=== PATIENT | male | born 1965 | race Caucasian/White ===

== ENCOUNTER 2024-10-19 23:04 | Inpatient (IN) | payer OTHER, SELFPAY ==
[2024-10-19 18:36] VITALS: BP 127/90
[2024-10-19 18:38] VITALS: BP 127/90
--- NOTE | 2024-10-19 18:42 | ED.GENMED ---
History of Present Illness
General
Chief Complaint: Heart Rate Problem
Source: patient
Exam Limitations: none
Time Seen by Provider: 10/19/24 18:37
Nursing documentation reviewed up to this point in time: agreed with
History of Present Illness
History of Present Illness:
Patient presents to ED from [facility] secondary to persistent tachycardia, since he was admitted 1 week ago. Patient otherwise has no complaints. Denies fever. Denies coughing. Denies chest pain or shortness of breath.
Denies palpitations. Denies nausea or vomiting. Denies dizziness. Denies headache. Denies recent change in medications or diet. Denies recent illness. Patient is an ex-smoker. Patient does not drink alcohol. Denies previous history of
similar symptoms.
Review of Systems
Review of Systems
Allergies reviewed?: Yes
All Other Systems: ROS reviewed and negative except as documented in HPI and ROS
Constitutional: Reports no symptoms; Denies fever
Respiratory: Reports no symptoms; Denies trouble breathing
Cardiac: Reports no symptoms; Denies chest pain, diaphoresis, palpitations or syncope
ABD/GI: Reports no symptoms
Musculoskeletal: Reports no symptoms
Skin: Reports no symptoms
Neurological: Reports no symptoms; Denies dizzy, headache or weakness
Phy Exam
Physical Exam
Physical Exam:
Physical Exam
General: no apparent distress, not acutely ill. afebrile
Head: nc/at. eomi
Neck: supple. normal range of motion. no jvd
Heart: tachycardic, no murmur.
Lungs: no acute respiratory distress. clear bilaterally
Abdomen: normal bowel sounds. not tender.
Neuro: alert and oriented x 3. no focal neurological deficits
Skin: no rash
Psychiatric: well kept. interactive and cooperative
Extremities: no edema. no calf tenderness.
Scores
[id number] Score for Afib Stroke Risk
Age in Years (65=0, 65-74=1, >/=75=2): <65
Sex (Female=+1): Male
Congestive Heart Failure History (Yes=+1): No
Hypertension History (Yes=+1): No
Stroke/TIA/Thromboembolism History (Yes=+2): No
Vascular Disease History (Yes=+1): No
Diabetes Mellitus (Yes=+1): No
Score: 0
Anticoagulation Recommendations: Anticoagulation not indicated (as validated in nonvalvular afib). Consider anticoagulation irrespective of score in patients with HCM
Course
Orders/Labs/Results
Orders:
Orders
10/19/24 18:42
Electrocardiogram (*1) Urgent
Reason for Study: Bradycardia / Tachycardia
EKG- Treatment ONCE
10/19/24 18:45
Metoprolol [Lopressor] 5 mg IV NOW STA
10/19/24 18:50
Complete Blood Count/With Diff Urgent
Comprehensive Metabolic Panel Urgent
D-Dimer Urgent
Magnesium Urgent
TSH Urgent
Troponin I Urgent
10/19/24 19:23
Diltiazem HCl [Cardizem] 20 mg IV NOW STA
10/19/24 19:30
Diltiazem 125 mg/125 ml Nss [Cardizem] 125 mg in 125 ml IV PER PROTOCOL
Initial dose in mg/hr, then titrate:: 5
Titrate to keep:: Heart rate 80-100 bpm
Titrate by mg/hr:: 5 mg/hr
Frequency of titrations (minutes):: 15
Maximum dose in mg/hr:: 15
10/19/24 20:52
Diltiazem HCl [Cardizem] 25 mg IV NOW STA
10/19/24 21:30
Apixaban [Eliquis] 5 mg PO BID
10/19/24 22:29
Metoprolol [Lopressor] 12.5 mg PO NOW STA
10/19/24 22:30
Apixaban [Eliquis] 5 mg PO BID
10/19/24 22:54
Admit/Transfer Patient As Directed
Co-Sign Provider:
Level of Care: Inpatient admission
Assign to:: IVU
Physician / Group: Mesfin
Diagnosis: A-Flutter
Reason for Hospitalization: A-Flutter
Expected length of stay greater than two midnights?: Yes
ELOS- Estimated Length of Stay in days: 2
I certify the patient meets the requirements for IP care: Yes
PRN Pain Medication Management As Directed
May give lesser potent ordered pain med per pt: Yes
preference::
Protocol:: Medication orders for pain may be administered in a
manner that supports deferring to patient preference
when the pt is:
- Requesting an ordered lesser potent pain medication.
Least to most potent pain medications are defined
as: acetaminophen < NSAID < tramadol < opioids
(morphine, oxycodone, hydromorphone).
- Requesting a lesser dose of the same medication IF
ORDERED.
- Requesting a less intrusive route of administration
if both routes are prescribed by the provider (PO <
IV).
10/19/24 22:55
Code Status As Directed
Resuscitation Status: Full Code
10/20/24 01:38
Acetaminophen [Tylenol] 650 mg PO Q4HPRN PRN
Lactated Ringers [Lr] 1,000 ml IV 100 mls/hr
Metoprolol [Lopressor] 12.5 mg PO Q6
10/20/24 01:38
CARDIOLOGY CONSULT Routine
Consulting Provider: Everton Mcdermott
Was physician already notified: Yes
Reason for consult: A-Flutter
Activity As Directed
Activity Level: Ambulate
EKG with chest pain [ECG as needed] As Directed
ECG as needed for:: Chest Pain
I/O [Intake/ Output] As Directed
Frequency: Per unit guidelines
Orthostatic Vital Signs As Directed
Orthostatic VS Frequency: BID
Vital Signs As Directed
Frequency: Per unit guidelines
Weight As Directed
Frequency: Daily
Oxygen Therapy [O2 Therapy] [RESP] Routine
Titrate/Wean O2 to maintain O2 sat greater than (%): 94
10/20/24 03:33
Basic Metabolic Panel IN AM
Cardiovascular Evaluation IN AM
Complete Blood Count/No Diff IN AM
TSH Reflex To Free T4 Routine
10/20/24 06:00
EKG [Electrocardiogram (*1)] IN AM
Reason for Study: Chest Pain
NPO
Allow oral meds: Yes
Allow clear liquids: Sips of Clears
10/20/24 08:00
Aspirin Chewable [Low Strength Aspirin] 81 mg PO DAILY
Tamsulosin [Flomax] 0.8 mg PO DAILY
10/20/24 22:00
Amitriptyline [Elavil] 100 mg PO HS
Abnormal Lab Results
10/19/24
18:50
RBC 4.26 L 10^6/uL
(4.70-6.10)
Hct 38.0 L %
(39.0-52.0)
MCH 31.5 H pg
(27.0-31.0)
MPV 10.5 H fL
(7.4-10.4)
Chloride 108 H mmol/L
(98-107)
Glucose 111 H mg/dl
(70-99)
10/19/24 18:50
10/19/24 18:50
Vital Signs
Initial and Last Documented VS:
Initial Vital Signs
Pulse Resp BP
143 22 127/90
10/19/24 18:36 10/19/24 18:36 10/19/24 18:36
Last Documented Vital Signs
Temp Pulse Resp BP Pulse Ox
97.7 F 118 18 96/67 93
10/21/24 08:44 10/21/24 09:30 10/21/24 08:44 10/21/24 09:33 10/21/24 08:44
MDM/Problems Addressed
MDM/Problems Addressed:
History and exam, along with EKG consistent with new onset rapid atrial fibrillation. Patient requiring multiple boluses of Cardizem, as well as max infusion rate of Cardizem, with mild improvement in heart rate.
Discussed with on-call cardiology, Dr. MAXIMILIANO Mcdermott, who recommends starting patient on Eliquis, along with addition of metoprolol to tartrate 12.5 mg every 6 hours.
Critical care statement: A total of 40 minutes of critical care time was provided for this patient. This includes management of unstable vital signs, evaluation of the patient at bedside, reviewing the patient's pertinent medical records, discussion
with consultants, review of old EKGs and review of pertinent medical records. This time with separate from time utilized to perform the aforementioned documented procedures
*EKG
Interpreted by ED Provider?: Yes
EKG Intrepretation Date: 10/19/24
Heart Rate: 142
Rate: tachycardiac
Billings: normal axis
Interval: normal interval
QRS Pattern: normal QRS
*Critical Care Note
Total Time (30-74mins, 75-104mins- exclusive of procedures): Not Applicable
ED Attending Note
-
Portions of this chart may have been created with voice recognition software.� Occasional wrong word or��sound alike� substitutions may have occurred due to the inherent limitations of voice recognition software.
Discharge Plan
Departure
Patient Disposition: Admit
Date of Disposition: 10/19/24
Time of Disposition: 21:20
Admit to: Telemetry
Presentation/result/management discussed w/ accepting MD/DO: Hospitalist
Discharge Problem:
Atrial fibrillation, rapid
Interventions
Interventions:
*Risk Screen - Suicide Last Done: 10/20/24 01:23
*General Assessment Last Done: 10/19/24 18:38
*Neglect/Abuse Screening Last Done: 10/19/24 18:38
*ED- Fall Risk Assessment Last Done: 10/19/24 23:07
*ED COVID-19 Vaccine History Last Done: 10/20/24 01:23
*Nursing Disposition Last Done: 10/20/24 01:15
ED- Cardiac Assessment Last Done: 10/19/24 19:35
ED- Pulmonary Assessment Last Done: 10/19/24 19:35
Discharge Date and Time
Discharge Date/Time: 10/20/24 01:15
[2024-10-19] MEDS: LOPRESSOR 5 MG IV (18:59)
[2024-10-19 19:00] VITALS: BP 136/98
[2024-10-19 19:16] LABS: % Basophils 0.3 % (0-2); % Eosinophils 1.3 % (0-6); % Immature Granulocytes 0.1 % (0-0.5); % Lymphocytes 40.5 % (20.5-51.1); % Monocytes 7.9 % (1.7-9.3); % Neutrophils 49.9 % (42.2-75.2); Absolute Eosinophils 0.1 10^3/uL (0-0.7); Absolute Monocytes 0.6 10^3/uL (0.1-0.6); Absolute Neutrophils 3.7 10^3/uL (1.4-6.5); Hemoglobin 13.4 g/dL (13.0-18.0); Mean Corp Hgb Conc. 35.3 g/dL (33.0-37.0); Mean Corpuscular Hgb 31.5 pg (27.0-31.0); Mean Corpuscular Volume 89.2 fL (80.0-94.0); Mean Platelet Volume 10.5 fL (7.4-10.4); Nucleated Red Blood Cells % 0 % (-); Platelet Count 193 10^3/uL (130-400); Red Blood Cell Count 4.26 10^6/uL (4.70-6.10); Red Cell Dist. Width 13.1 % (11.5-14.5); White Blood Cell Count 7.5 10^3/uL (4.8-10.8)
[2024-10-19 19:29] LABS: ALT (SGPT) 31 U/L (0-50); AST (SGOT) 27 U/L (17-59); Albumin 4.5 g/dl (3.5-5.0); Alkaline Phosphatase 68 U/L (38-126); Blood Urea Nitrogen 17 mg/dl (9-20); Calcium 9.5 mg/dl (8.4-10.2); Carbon Dioxide 23 mmol/L (22-30); Chloride 108 mmol/L (98-107); Glucose 111 mg/dl (70-99); Magnesium 2.1 mg/dl (1.6-2.3); Potassium 4.2 mmol/L (3.5-5.1); Sodium 142 mmol/L (135-145); Total Bilirubin 0.4 mg/dl (0.2-1.3); Total Protein 7.1 g/dl (6.3-8.2); eGFR > 60.00
[2024-10-19 19:36] LABS: Troponin I < 0.012 ng/ml
[2024-10-19] MEDS: CARDIZEM 125 IV (19:39)
[2024-10-19] MEDS: CARDIZEM 20 MG IV (19:39)
[2024-10-19 19:59] LABS: TSH 1.83 uIU/ml (0.47-4.68)
[2024-10-19 20:09] LABS: D-Dimer 0.46 ug/mlFEU (0.00-0.50)
[2024-10-19 21:00] VITALS: BP 118/77
[2024-10-19] MEDS: CARDIZEM 25 MG IV (21:03)
[2024-10-19 22:13] VITALS: BMI 27.6
--- NOTE | 2024-10-19 22:58 | HPS.HSE ---
Family Physician
-
Family Physician: [facility]
Chief Complaint
-
Tachycardia
History of Present Illness
Patient is a 59y M with PMH significant for RA and neuropathy who presents to ED for evaluation of tachycardia. Patient states that he was evaluated at [facility] this afternoon and noted to have tachycardia. He denies any specific symptoms and
stated that he did not know his heartbeat was fast. He specifically denies chest pain, palpitations, lightheadedness, N/V, etc. He was sent to the ED for evaluation. He was noted to be in A-Flutter with 2:1 block and persistent tachycardia at
140-150 bpm. Patient was placed on diltiazem gtt with no improvement in his heart rate.
He denies any other current complaints.
He denies any prior history of heart disease, GA, CVA, etc.
He states that he is on Plavix for 'sticky platelets' but has no other details.
Medical History
Past Medical History
Past Medical History: Reports Other
Additional Past Medical History:
Rheumatoid Arthritis
Peripheral Neuropathy
GERD
'Sticky Platelets'
Past Surgical History: Reports Other
Additional Past Surgical History:
Appendectomy
Hemorrhoidectomy
Social History
Tobacco: Former Smoker (Quit 4 years ago. > 40 pack years total use.)
Alcohol: None
Drug: None
Living: Fdc
Family History
Family History: Other (Father: CAD Mother: Brain Cancer PGF: CVA)
Allergies / Home Medications
Allergies reflects when Allergies were last updated in [employer].
Home Medications with original date entered in [employer]
Allergy/Medication List:
Allergies
Allergy/AdvReac Type Severity Reaction Status Date / Time
Penicillins Allergy Severe Anaphylaxis Verified 10/19/24 18:37
Home Medications
acetaminophen 500 mg tablet 1,000 mg PO BID 10/19/24
amitriptyline 100 mg tablet 100 mg PO HS 10/19/24
metoprolol tartrate 25 mg tablet 25 mg PO BID 10/19/24
metoprolol tartrate 25 mg tablet 25 mg PO DAILYPRN PRN Abnormal HR 10/19/24
metoprolol tartrate 50 mg tablet 50 mg PO DAILYPRN PRN 25mg ineffective 10/19/24
omeprazole 20 mg capsule,delayed release 20 mg PO DAILY 10/19/24
tamsulosin 0.4 mg capsule 0.8 mg PO DAILY 10/19/24
Review of Systems
-
History Source: Patient
A 12 point ROS was completed and negative except as noted: Yes
Constitutional: Denies Fever or Chills
Respiratory: Denies Cough or Trouble Breathing
Cardiac: Denies Chest Pain or Palpitations
Abdomen/GI: Denies Abdominal Pain, Nausea, Vomiting or Diarrhea
: Denies Dysuria or Flank Pain
Musculoskeletal: Denies Joint Pain or Edema
Neurological: Denies Dizzy or Headache
Physical Exam
Vital Signs
Vital Signs
Temp Pulse Resp BP Pulse Ox
97.9 F 143 22 118/77 94
10/19/24 18:38 10/19/24 22:00 10/19/24 22:00 10/19/24 21:00 10/19/24 21:45
Physical Exam
General: Other (59y M in no acute distress.)
HEENT: PERRLA and Other (Dry MM.)
Respiratory: Clear; No Wheezes, Rales or Rhonchi
Cardiac: S1/S2, Regular Rhythm and Tachycardia; No Murmur
GI: Soft, Non Tender, Non Distended and Normal Bowel Sounds
Musculoskeletal: No Clubbing, No Cyanosis and No Edema
Neuro: AO x 3
Laboratory Results
-
10/19/24 18:50
10/19/24 18:50
Laboratory Results
Total Bilirubin 0.4 mg/dl (0.2-1.3) 10/19/24 18:50
AST 27 U/L (17-59) 10/19/24 18:50
ALT 31 U/L (0-50) 10/19/24 18:50
Alkaline Phosphatase 68 U/L (38-126) 10/19/24 18:50
Troponin I < 0.012 ng/ml 10/19/24 18:50
Impression/Plan
-
A/P: Patient is a 59y M with PMH significant for RA and neuropathy who presents to ED for evaluation of tachycardia.
Atrial Flutter
- Admit to IVU for further evaluation and treatment.
- Minimal change in rate thus far with diltiazem.
- Some response to vagal maneuvers in the ED - but transient.
- Continue diltiazem gtt. Add PO metoprolol in standing doses.
- Cardiology evaluation for additional recommendations.
- Continue Eliquis for stroke risk reduction.
- Check TFTs.
- Monitor for any new symptoms, etc.
RA
Peripheral Neuropathy
- History is unclear in this regard.
- Not on any DMARD type therapy for reported RA.
- On amitriptyline for chronic pain / neuropathy - continue.
GERD
- Stable. Continue PPI.
DVT Prophylaxis: Eliquis
Code Status: Full
[2024-10-19] MEDS: ELIQUIS 5 MG PO (22:59)
[2024-10-19 23:00] VITALS: BP 105/70
[2024-10-19] MEDS: LOPRESSOR 12.5 MG PO (23:23)
[2024-10-20] VITALS (11 sets, daily range): BP systolic 98–119; BP diastolic 72–88; BMI 27.6; BMI 27.4
--- NOTE | 2024-10-20 01:55 | PTCARENOTE ---
Received pt from ED @ 0105. Hr 135-140s, other VSS. AAOx3. Cardizem gtt running @ 15 mL/hr. Discussed plan of care for evening. Pt verbalized understanding. Call burnette within reach.
[2024-10-20] MEDS: LR 1000 IV (03:20)
[2024-10-20] MEDS: LOPRESSOR 12.5 MG PO ×2 (03:25→07:07)
[2024-10-20] MEDS: CARDIZEM 125 IV ×2 (03:29→11:46)
[2024-10-20 03:55] LABS: Hematocrit 38.7 % (39.0-52.0); Hemoglobin 13.9 g/dL (13.0-18.0); Mean Corp Hgb Conc. 35.9 g/dL (33.0-37.0); Mean Platelet Volume 11.1 fL (7.4-10.4); Platelet Count 195 10^3/uL (130-400); Red Blood Cell Count 4.35 10^6/uL (4.70-6.10); White Blood Cell Count 7.2 10^3/uL (4.8-10.8)
[2024-10-20 04:01] LABS: Blood Urea Nitrogen 16 mg/dl (9-20); Calcium 9.5 mg/dl (8.4-10.2); Carbon Dioxide 24 mmol/L (22-30); Chloride 108 mmol/L (98-107); Estimated Creatinine Clearance 80 ml/min; Glucose 108 mg/dl (70-99); HDL Cholesterol 38 mg/dl; LDL Cholesterol, Calculated 97 mg/dl; Potassium 4.1 mmol/L (3.5-5.1); Sodium 143 mmol/L (135-145); Total Cholesterol 162 mg/dl (50-199); Triglyceride 139 mg/dl (10-149); Very Low Density Lipoprotein 27 mg/dl (0-30); eGFR > 60.00
[2024-10-20 04:31] LABS: TSH Reflex To Free T4 3.28 uIU/ml (0.47-4.68)
[2024-10-20] MEDS: PROTONIX 40 MG PO (07:07)
[2024-10-20] MEDS: FLOMAX 0.8 MG PO (07:07)
[2024-10-20] MEDS: LOW STRENGTH ASPIRIN 81 MG PO (07:07)
--- NOTE | 2024-10-20 07:27 | CON.CAR ---
Addendum entered and electronically signed by Everton Mcdermott MD 10/20/24 09:23:
Diagnosis of hypercoagulable state is questionable, patient states he was placed on Plavix related to an abnormality of his platelets, other details uncertain, no history of vascular events per report of patient
Original Note:
Consultation
Consultation Request
Date/Time Consultation Requested: 10/19/2024 at 2200
Date/Time Consultation Performed: 10/20/2024 at 730
Requesting Provider: Dr. Griffith
Performing Provider: Everton Mcdermott MD
Reason for Consultation: Atrial flutter with 2-1 conduction
Medical History
-
Chief Complaint: Tachycardia
History of Present Illness:
59-year-old man with no cardiac history. He has a history of peripheral neuropathy and rheumatoid arthritis but not on DMARDs. He has been told he also has peripheral neuropathy and takes amitriptyline. He is vague about the possibility of a
hypercoagulable state. 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 He lives in [place] but 10 days ago was extradited to [place] and has been in [facility] correctional
facility. Upon intake he had a heart rate of 140 and a beta-pepito was prescribed. His heart rate has remained elevated. He is surprisingly asymptomatic and has no awareness of tachycardia. There is no prior history of arrhythmia. He was
brought to the emergency department where he was found to have atrial flutter with 2 predominant 2-1 conduction. His [id number] score is 0. He has now been admitted. Guards are at the bedside. He offers no complaints is pleasant and
cooperative.
Past Medical History
Past Medical History: Arrhythmias (No prior history of arrhythmia), COPD and Other (Rheumatoid arthritis, peripheral neuropathy)
Past Surgical History: Appendectomy and Other (Hemorrhoidectomy)
Social History
Tobacco: Former Smoker (Quit age 18)
Alcohol: None
Drug: None
Personal:
Living: Alone
Family History
Family History: Early CAD
Allergies / Home Medications
Allergy/AdvReac Type Severity Reaction Status Date / Time
Penicillins Allergy Severe Anaphylaxis Verified 10/19/24 18:37
�Medication �Instructions �Recorded �Confirmed �Type
acetaminophen 500 mg tablet 1,000 mg PO BID 10/19/24 10/19/24 History
amitriptyline 100 mg tablet 100 mg PO HS 10/19/24 10/19/24 History
metoprolol tartrate 25 mg tablet 25 mg PO BID 10/19/24 10/19/24 History
metoprolol tartrate 25 mg tablet 25 mg PO DAILYPRN PRN Abnormal HR 10/19/24 10/19/24 History
metoprolol tartrate 50 mg tablet 50 mg PO DAILYPRN PRN 25mg 10/19/24 10/19/24 History
ineffective
omeprazole 20 mg capsule,delayed 20 mg PO DAILY 10/19/24 10/19/24 History
release
tamsulosin 0.4 mg capsule 0.8 mg PO DAILY 10/19/24 10/19/24 History
Review of Systems
-
All other systems: Negative unless noted
Physical Exam
Vital Signs
Temp Pulse Resp BP Pulse Ox
36.9 C 137 18 103/77 96
10/20/24 06:53 10/20/24 05:33 10/20/24 06:53 10/20/24 05:33 10/20/24 06:53
Lab Results
10/20/24 03:33
10/20/24 03:33
Troponin I < 0.012 ng/ml 10/19/24 18:50
Physical Exam
General: No Apparent Distress (Tachycardic, heart rate 140)
HEENT: Other (Very few remaining teeth, poor dentition)
Respiratory: Clear
Cardiac: Other (Tachycardic, intermittently irregular, no murmur)
Musculoskeletal: No Edema and Other (Standard changes of rheumatoid arthritis)
Neuro: AO x 3
Psych: Calm
Impression / Plan
-
Impression:
Persistent atrial flutter
Rheumatoid arthritis
History of COPD and/or asthma
Suboptimal social situation, extradited from [place] to [place]
Peripheral neuropathy
Hypercoagulable state
Plan:
He presents with what is likely persistent atrial flutter which goes back at least 10 days upon his arrival to [facility] based on his history. It is conceivable that he has been in atrial flutter for longer than that. His
[id number] score is 0.
Thus far his ventricular response has been very difficult to control, and so it is likely that he will require cardioversion prior to discharge. It seems unlikely at this point that he will spontaneously revert to sinus rhythm.
Despite a [id number] score of 0 he should be anticoagulated given that we will be cardioverting him. It would be reasonable to discontinue anticoagulation after sinus rhythm has been reestablished for several weeks.
We will continue metoprolol and IV diltiazem. I will increase metoprolol to 25 every 6 and except blood pressure as low as 95-100 systolic.
Continue Eliquis.
He will need a transesophageal echo and cardioversion on Tuesday.
Data Reviewed
-
EKG: Tracing Personally Visualized and interpreted (Atrial flutter with rapid and variable AV conduction)
Labs: Labs Reviewed by me (CBC is normal, BUN and creatinine are 16 and 1.0, total cholesterol is 162, LDL is 97, triglycerides are 139, troponin is undetectable)
[2024-10-20] MEDS: ELIQUIS 5 MG PO ×2 (08:33→19:50)
--- NOTE | 2024-10-20 08:58 | W.PN.HOSP.TC ---
Today's Communication/Plan
-
Continue with IV Cardizem and metoprolol. Continue with Eliquis.
DC aspirin.
Electrical cardioversion planned for Tuesday.
Assessment / Plan
Assessment / Plan
A/P: Patient is a 59y M with PMH significant for RA and neuropathy who presents to ED for evaluation of tachycardia.
Atrial Flutter
- Admitted to IVU for further evaluation and treatment.
- cw diltiazem IV gtt.
- cw PO metoprolol in standing doses.
- Cardiology evaluation for additional recommendations.
- [id number] score - 0 so no indication for Eliquis but cards plan to do ECV on Tuesday so would continue it. DC ASA.
- Check TFTs.
- Monitor for any new symptoms, etc.
RA
Peripheral Neuropathy
- History is unclear in this regard.
- Not on any DMARD type therapy for reported RA.
- On amitriptyline for chronic pain / neuropathy - continue.
GERD
- Stable. Continue PPI.
DVT Prophylaxis: Eliquis
Code Status: Full
Anticipated Discharge: > 48 hours
Subjective/Interval History
-
Date of Service: October 20, 2024
Patient without chest pain or shortness of breath.
Denies any dizziness.
No nausea vomiting. No fever chills. No cough.
Objective Data
-
Labs:
Laboratory Results
10/20/24
03:33
WBC 7.2
Hgb 13.9
Hct 38.7 L
Plt Count 195
Sodium 143
Potassium 4.1
Chloride 108 H
Carbon Dioxide 24
BUN 16
Creatinine 1.0
Glucose 108 H
Calcium 9.5
Vital Signs:
Vital Signs
Temp Pulse Resp BP Pulse Ox
98.5 F 137 18 103/77 96
10/20/24 06:53 10/20/24 05:33 10/20/24 06:53 10/20/24 05:33 10/20/24 06:53
I&O
10/19/24 10/20/24 10/21/24
06:59 06:59 06:59
Output Total 650 / 650
Balance -650 / -650
Physical Exam
-
General: Comfortable
HEENT: Moist Mucous Membranes
Respiratory: Clear to Auscultation
Cardiac: S1/S2, Irregular Rhythm and Tachycardic
GI: Soft
Musculoskeletal: No Edema
Neuro: AO x 3
Data Reviewed
-
Labs: Labs Reviewed by me
[2024-10-20] MEDS: LOPRESSOR 25 MG PO ×3 (11:46→22:51)
--- NOTE | 2024-10-20 21:16 | PTCARENOTE ---
Received pt @ change of shift. AAOx3. VSS. Cardizem gtt running @ 15 mL/hr through Rt AC. Denies palpitations, SOB, chest discomfort. Discussed plan of care for evening. Pt verbalized understanding. Call burnette within reach.
[2024-10-20] MEDS: ELAVIL 100 MG PO (22:51)
[2024-10-21] VITALS (10 sets, daily range): BP systolic 74–106; BP diastolic 56–88; BMI 27.1
[2024-10-21 01:48] LABS: NT-proBNP 685 pg/ml
[2024-10-21] MEDS: CARDIZEM 125 IV (03:53)
[2024-10-21] MEDS: LOPRESSOR 25 MG PO ×4 (05:31→23:28)
--- NOTE | 2024-10-21 05:39 | PTCARENOTE ---
Pt had a restful night. HR came down as low as 92 @ times. No c/o of chest discomfort, palpitations, or SOB.
[2024-10-21] MEDS: ELIQUIS 5 MG PO ×2 (08:56→21:05)
[2024-10-21] MEDS: FLOMAX 0.8 MG PO (09:00)
[2024-10-21] MEDS: PROTONIX 40 MG PO (09:00)
--- NOTE | 2024-10-21 10:53 | W.PN.CARDCBS ---
Today's Communication / Plan
-
YANG/cardioversion on 10/22
Cardizem discontinued due to hypotension
Continue Lopressor if blood pressure tolerates
May need amiodarone if rate control continues to be poor although appears to be asymptomatic
Hopefully ejection fraction has not decreased as may have been in atrial flutter for 1 to 2 weeks
Impression / Plan
-
Impression:
Persistent atrial flutter
Rheumatoid arthritis
History of COPD and/or asthma
Suboptimal social situation, extradited from [place] to [place]
Peripheral neuropathy
Hypercoagulable state
Plan:
Heart rate control remains suboptimal and he is hypotensive necessitating Cardizem to be discontinued
Will do YANG/cardioversion on 10/22. Hopefully ejection fraction has not decreased as may have been in atrial flutter for 1 to 2 weeks per
Despite a [id number] score of 0 he should be anticoagulated given that we will be cardioverting him. It would be reasonable to discontinue anticoagulation after sinus rhythm has been reestablished for several weeks.
Continue metoprolol for now and hopefully blood pressure will tolerate. If rate becomes too difficult may need to consider IV amiodarone or oral amiodarone
Continue Eliquis.
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
Subjective
Date of Service: October 21, 2024
No complaints
Objective
Labs:
10/20/24 03:33
10/20/24 03:33
Labs
Hgb 13.9 g/dL (13.0-18.0) 10/20/24 03:33
Hct 38.7 % (39.0-52.0) L 10/20/24 03:33
Plt Count 195 10^3/uL (130-400) 10/20/24 03:33
Sodium 143 mmol/L (135-145) 10/20/24 03:33
Potassium 4.1 mmol/L (3.5-5.1) 10/20/24 03:33
BUN 16 mg/dl (9-20) 10/20/24 03:33
Creatinine 1.0 mg/dL (0.7-1.3) 10/20/24 03:33
Glucose 108 mg/dl (70-99) H 10/20/24 03:33
Troponins
10/19/24
18:50
Troponin I < 0.012
Vital Signs and I&O:
Vital Signs
Temp Pulse Resp BP Pulse Ox
97.7 F 118 18 96/67 93
10/21/24 08:44 10/21/24 09:30 10/21/24 08:44 10/21/24 09:33 10/21/24 08:44
Vital Signs
Temp Pulse Resp BP Pulse Ox
97.7 F 118 18 96/67 93
10/21/24 08:44 10/21/24 09:30 10/21/24 08:44 10/21/24 09:33 10/21/24 08:44
Intake & Output
10/19/24 10/20/24 10/21/24 10/22/24
06:59 06:59 06:59 06:59
Intake Total 920 / 920
Output Total 650 / 650 2475 / 2475
Balance -650 / -650 -1555 / -1555
Physical Exam
Physical Exam
General: Well developed, well nourished in NAD.
Neck: Supple, no JVD, HJR, carotids +2 B/L, no bruits bilaterally.
Heart: Non displaced PMI, regular, tachycardic, no murmurs, No S3, S4, no rubs.
Lungs: Scattered rhonchi
Extremities: No clubbing, cyanosis or edema bilaterally.
Neuro: Grossly nonfocal, awake, alert and oriented x3.
--- NOTE | 2024-10-21 11:14 | W.PN.HOSP.TC ---
Today's Communication/Plan
-
CW BB
ECV in am
Assessment / Plan
Assessment / Plan
A/P: Patient is a 59y M with PMH significant for RA and neuropathy who presents to ED for evaluation of tachycardia.
New Atrial Flutter with RVR
- Admitted to IVU for further evaluation and treatment.
- hold diltiazem IV gtt due to low BP today
- cw PO metoprolol in standing doses.
- Cardiologyfollowing
- [id number] score - 0 so no indication for Eliquis but cards plan to do ECV on Tuesday so would continue it. DC ASA.
- TSH is ok
- Monitor for any new symptoms, etc.
- HD stable and no CHF clinically
RA
Peripheral Neuropathy
- History is unclear in this regard.
- Not on any DMARD type therapy for reported RA.
- On amitriptyline for chronic pain / neuropathy - continue.
GERD
- Stable. Continue PPI.
DVT Prophylaxis: Eliquis
Code Status: Full
Anticipated Discharge: 24 - 48 hours
Subjective/Interval History
-
Date of Service: October 21, 2024
Patient voices no specific complaints
Denies any chest pain, palpitation shortness of breath.
No nausea vomiting. Tolerating diet.
Objective Data
-
Vital Signs:
Vital Signs
Temp Pulse Resp BP Pulse Ox
97.7 F 118 18 96/67 93
10/21/24 08:44 10/21/24 09:30 10/21/24 08:44 10/21/24 09:33 10/21/24 08:44
I&O
10/20/24 10/21/24 10/22/24
06:59 06:59 06:59
Intake Total 920 / 920
Output Total 650 / 650 2475 / 2475
Balance -650 / -650 -1555 / -1555
Physical Exam
-
General: Comfortable
Respiratory: Clear to Auscultation and Non Labored Respirations; Negative Accessory Resp Muscle Use
Cardiac: S1/S2, Irregular Rhythm and Tachycardic
GI: Soft
Neuro: AO x 3
--- NOTE | 2024-10-21 17:40 | PTCARENOTE ---
Pt denies any discomfort, states he is unaware of his fast heart rate. Diltiazem infusion stopped per @09:15 due to hypotension. Pt has spent most of the day in atrial flutter at a rate @140 while he is awake, 120's when sleeping.
Elsie aware.. Pt understands plan for YANG/CV on 10/22.
--- NOTE | 2024-10-21 19:42 | PTCARENOTE ---
Left leg shackled to bed.
[2024-10-21] MEDS: ELAVIL 100 MG PO (21:05)
[2024-10-22] VITALS (9 sets, daily range): BP systolic 87–114; BP diastolic 61–88
[2024-10-22] MEDS: LOPRESSOR 25 MG PO (06:14)
--- NOTE | 2024-10-22 06:38 | PTCARENOTE ---
Pt A flutter 130-140 BPM on monitor. Pt denies palpitation or any discomfort. Left leg shackled to the bed, safety measures in place.
[2024-10-22] MEDS: PROTONIX 40 MG PO (08:33)
[2024-10-22] MEDS: FLOMAX 0.8 MG PO (08:33)
[2024-10-22] MEDS: ELIQUIS 5 MG PO ×2 (08:33→19:55)
--- NOTE | 2024-10-22 11:17 | W.PN.CARDCBS ---
Addendum entered and electronically signed by Servando Zimmerman MD 10/22/24 12:39:
I saw and examined the patient.
The SAFETY INTERN or PA's note was reviewed and I agree with the note.
Comment: General: Well developed, well nourished in NAD.
Neck: Supple, no JVD, HJR, carotids +2 B/L, no bruits bilaterally.
Heart: Non displaced PMI, irregular, tachycardic, no murmurs, No S3, S4, no rubs.
Lungs: Scattered rhonchi
Extremities: No clubbing, cyanosis or edema bilaterally.
Neuro: Grossly nonfocal, awake, alert and oriented x3.
Patient seen prior to YANG cardioversion which was successful. Ejection fraction was decreased to 35%. Will start Toprol and lisinopril. Hopefully stable for discharge on 10/23.
Addendum entered and electronically signed by Kisha Trinidad PA-C 10/22/24 12:06:
In to update patient, his EF is down at 35%. Reviewed plan of starting Toprol XL 25 mg BID plus lisinopril 2.5 mg daily. Will increase meds as BP tolerates. Will keep patient until tomorrow for medication titration.
Original Note:
Today's Communication / Plan
-
Possible d/c today pending YANG/CV
Impression / Plan
-
PCP: None locally
Card: None
Impression:
Admitted with newly diagnosed atrial flutter of unclear duration 10/19/24
Persistent typical atrial flutter
Rheumatoid arthritis
History of COPD and/or asthma
Suboptimal social situation, extradited from [place] to [place]
Peripheral neuropathy
Hypercoagulable state
YANG 10/22/24: Study pending
Plan:
-Patient admitted with newly diagnosed atrial flutter 10/19/24 and remains in rapid atrial flutter 10/22/24 on tele review by me. Plan is for YANG/CV 10/22/24.
-Reviewed YANG/CV procedure with patient. Reviewed that there is small possibility of NICK clot which would change our current plans.
-New to Eliquis 5 mg BID (age 59, Cre 1.0) this admission. [facility] Unclear what his insurance is outside of [facility] system
-Initially managed with Cardizem gtt, but became hypotensive and gtt stopped. Currently ordered Lopressor 25 mg q 6 hours and tolerating all doses thus far.
-Pending EF by YANG might change to Toprol XL.
-No SOB or orthopnea. pro-BNP was 685 on 10/20/24
-Possible d/c 10/22/24 pending YANG/CV
Progress Note - Lead Printer
Subjective
Date of Service: October 22, 2024
Denies chest pain or orthopnea
Objective
Labs:
10/20/24 03:33
10/20/24 03:33
Labs
Hgb 13.9 g/dL (13.0-18.0) 10/20/24 03:33
Hct 38.7 % (39.0-52.0) L 10/20/24 03:33
Plt Count 195 10^3/uL (130-400) 10/20/24 03:33
Sodium 143 mmol/L (135-145) 10/20/24 03:33
Potassium 4.1 mmol/L (3.5-5.1) 10/20/24 03:33
BUN 16 mg/dl (9-20) 10/20/24 03:33
Creatinine 1.0 mg/dL (0.7-1.3) 10/20/24 03:33
Glucose 108 mg/dl (70-99) H 10/20/24 03:33
Troponins
10/19/24
18:50
Troponin I < 0.012
Vital Signs and I&O:
Vital Signs
Temp Pulse Resp BP Pulse Ox
98.4 F 136 20 99/85 96
10/22/24 07:23 10/22/24 07:30 10/22/24 07:23 10/22/24 07:24 10/22/24 07:23
Vital Signs
Temp Pulse Resp BP Pulse Ox
98.4 F 136 20 99/85 96
10/22/24 07:23 10/22/24 07:30 10/22/24 07:23 10/22/24 07:24 10/22/24 07:23
Intake & Output
10/20/24 10/21/24 10/22/24 10/23/24
06:59 06:59 06:59 06:59
Intake Total 920 / 920 640 / 640
Output Total 650 / 650 2475 / 2475 2160 / 2160 200 / 200
Balance -650 / -650 -1555 / -1555 -1520 / -1520 -200 / -200
Physical Exam
Physical Exam
GEN: NAD. AAOx3
HEENT: MMM
LUNGS: RA. No audible wheeze.
CV: Typical atrial flutter on tele
EXT: No edema B/L
NEURO: Gross non-focal
SKIN: No rash
[2024-10-22] MEDS: LOPRESSOR PO (12:10)
[2024-10-22] MEDS: TOPROL XL 12.5 MG PO (12:40)
[2024-10-22] MEDS: ZESTRIL 2.5 MG PO (13:43)
--- NOTE | 2024-10-22 15:11 | CM ---
pt is a resident [facility]. cm to call in clinicals. guards in the room. plan is for dc when medically stable back to the [facility]ision.
--- NOTE | 2024-10-22 16:04 | W.PN.HOSP.TC ---
Addendum entered and electronically signed by Lyric George MD 10/22/24 16:28:
I saw and evaluated the patient independently. I reviewed the resident�s note and agree with findings and plan as documented by Dr. Quispe.
GENERAL: well developed, well nourished, male in no apparent distress
HEENT: NC/AT
HEART: regular rate and rhythm, +S1, +S2 (seen and examined post cardioversion)
LUNGS : clear to auscultation bilaterally
ABDOM: soft, nontender, nondistended, + bowel sounds
EXT: no cyanosis, clubbing, or edema
NEUROLOGIC: grossly intact
New Atrial Flutter with RVR--pt did not feel his heart racing--apprec cards--S/p successful YANG/cardioversion on 10/22--EF decreased to 35%--possibly rate related?--no plans for cardiac cath--now on toprol XL BID, lisinopril--Eliquis (was on cardizem
drip but did not tolerate as became hypotensive)--no clinical CHF noted
History of RA with Peripheral Neuropathy--History is unclear in this regard--Not on any DMARD type therapy for reported RA--Continue amitriptyline for chronic pain
GERD - Stable. Continue PPI.
DVT Proph--cont Eliquis
Code Status-- Full code
[facility]
Original Note:
Today's Communication/Plan
-
S/p successful YANG/cardioversion
Transition to Toprol-XL 25 mg twice daily plus lisinopril 2.5
Continue Eliquis 2.5 mg twice daily
Assessment / Plan
Assessment / Plan
A/P: Patient is a 59y M with PMH significant for RA and neuropathy who presents to ED for evaluation of tachycardia.
Plan
#New Atrial Flutter with RVR
#S/p successful YANG/cardioversion on 10/22
Ejection fraction was decreased to 35% on YANG
Initially was managed with Cardizem drip, however patient became hypotensive and gtt was stopped
Transition to Toprol-XL 25 mg twice daily plus lisinopril 2.5 mg daily per cards
[id number] score - 0, currently on Eliquis 5 mg twice daily(age 59, Creat 1.0).
Monitor for any new symptoms, etc.
HD stable and no CHF clinically
Appreciate cardiology input
History of RA
Peripheral Neuropathy
History is unclear in this regard.
Not on any DMARD type therapy for reported RA.
Continue amitriptyline for chronic pain
GERD
- Stable. Continue PPI.
DVT Prophylaxis: Eliquis
Code Status: Full
Anticipated Discharge: 24 - 48 hours
Subjective/Interval History
-
Date of Service: October 22, 2024
No new symptoms
Objective Data
-
Vital Signs:
Vital Signs
Temp Pulse Resp BP Pulse Ox
98.1 F 99 20 94/68 94
10/22/24 15:23 10/22/24 15:30 10/22/24 15:23 10/22/24 15:24 10/22/24 15:23
I&O
10/21/24 10/22/24 10/23/24
06:59 06:59 06:59
Intake Total 920 / 920 640 / 640 400 / 400
Output Total 2475 / 2475 2160 / 2160 500 / 500
Balance -1555 / -1555 -1520 / -1520 -100 / -100
Review of Systems
-
History Source: Patient
All other systems: Reviewed and negative
Physical Exam
-
General: No Apparent Distress and Comfortable
HEENT: Normocephalic and Atraumatic
Respiratory: Clear to Auscultation
Cardiac: Regular Rhythm, S1/S2 and Tachycardic; Negative Murmur or Rub
GI: Soft, Nontender and Nondistended
Musculoskeletal: No Edema
Neuro: AO x 3
Psych: Calm
Data Reviewed
-
Medical Tests (Nuc Med, Echo etc): Report Reviewed by me and Discussed with Physician
Labs: Labs Reviewed by me and Discussed with Physician
[2024-10-22] MEDS: ELAVIL 100 MG PO (21:20)
[2024-10-22] MEDS: TOPROL XL 25 MG PO (21:20)
--- NOTE | 2024-10-23 00:56 | PTCARENOTE ---
Pt. in NSR this shift rate 80's-90's, no complaints of discomfort, watching TV most of the shift.
[2024-10-23 03:27] VITALS: BP 92/69
[2024-10-23 04:16] LABS: Hematocrit 37.9 % (39.0-52.0); Hemoglobin 13.2 g/dL (13.0-18.0); Mean Corp Hgb Conc. 34.8 g/dL (33.0-37.0); Mean Corpuscular Hgb 31.2 pg (27.0-31.0); Mean Corpuscular Volume 89.6 fL (80.0-94.0); Platelet Count 197 10^3/uL (130-400); Red Blood Cell Count 4.23 10^6/uL (4.70-6.10); Red Cell Dist. Width 12.8 % (11.5-14.5); White Blood Cell Count 7.2 10^3/uL (4.8-10.8)
[2024-10-23 04:38] LABS: Blood Urea Nitrogen 22 mg/dl (9-20); Calcium 8.5 mg/dl (8.4-10.2); Carbon Dioxide 26 mmol/L (22-30); Chloride 106 mmol/L (98-107); Estimated Creatinine Clearance 73 ml/min; Glucose 99 mg/dl (70-99); Potassium 4.1 mmol/L (3.5-5.1); Sodium 138 mmol/L (135-145); eGFR > 60.00
--- NOTE | 2024-10-23 07:05 | PTCARENOTE ---
On alarm review pt. had run A-tach in the 150's at [address] White aware.
[2024-10-23 08:14] VITALS: BP 106/67
[2024-10-23] MEDS: FLOMAX 0.8 MG PO (08:15)
[2024-10-23] MEDS: PROTONIX 40 MG PO (08:15)
[2024-10-23] MEDS: TOPROL XL 25 MG PO (08:15)
[2024-10-23] MEDS: ELIQUIS 5 MG PO (08:18)
[2024-10-23] MEDS: ZESTRIL PO (08:18)
--- NOTE | 2024-10-23 08:29 | W.PN.CARDCBS ---
Addendum entered and electronically signed by Servando Zimmerman MD 10/23/24 10:24:
I saw and examined the patient.
The RESEARCH/PROGRAM DIRECTOR or PA's note was reviewed and I agree with the note.
Comment: General: Well developed, well nourished in NAD.
Neck: Supple, no JVD, HJR, carotids +2 B/L, no bruits bilaterally.
Heart: Non displaced PMI, RRR, no murmurs, No S3, S4, no rubs.
Lungs: Scattered rhonchi
Extremities: No clubbing, cyanosis or edema bilaterally.
Neuro: Grossly nonfocal, awake, alert and oriented x3.
Remains in sinus rhythm. Brief PAT on telemetry. Continue Toprol, lisinopril, Eliquis. Stable cardiology status for discharge. Follow-up will be arranged
Original Note:
Today's Communication / Plan
-
Cont Toprol XL 25 mg BID and lisinopril
Cont Eliquis
Impression / Plan
-
PCP: None locally
Card: None
Impression:
Admitted with newly diagnosed atrial flutter of unclear duration 10/19/24
Persistent typical atrial flutter
Rheumatoid arthritis
History of COPD and/or asthma
Suboptimal social situation, extradited from [place] to [place]
Peripheral neuropathy
Hypercoagulable state
Newly diagnosed CM EF 15-20%
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
YANG 10/22/24: EF 15-20%, reduced RV systolic function, no NICK thrombus, no significant valve disease
Plan:
-EF down at 15-20% by YANG . No chest pain. Undetectable Troponin. No WMA. Recheck echo in 3 months and if EF remains depressed then pursue ischemic evaluation.
-Tele reviewed by me and patient with asymptomatic Atach. Cont Toprol XL
-New to Toprol XL 25 mg BID this admission.
-New to lisinopril 2.5 mg daily this admission.
-ECG from 10/23/24 reviewed by me and patient remains in SR and QTc 459 ms.
-No SOB or orthopnea. pro-BNP was 685 on 10/20/24
-D/C 10/23/24
Progress Note - Tobacco Hanger
Subjective
Date of Service: October 23, 2024
Feels well, no palpitations
Objective
Labs:
10/23/24 03:33
10/23/24 03:33
Labs
Hgb 13.2 g/dL (13.0-18.0) 10/23/24 03:33
Hct 37.9 % (39.0-52.0) L 10/23/24 03:33
Plt Count 197 10^3/uL (130-400) 10/23/24 03:33
Sodium 138 mmol/L (135-145) 10/23/24 03:33
Potassium 4.1 mmol/L (3.5-5.1) 10/23/24 03:33
BUN 22 mg/dl (9-20) H 10/23/24 03:33
Creatinine 1.1 mg/dL (0.7-1.3) 10/23/24 03:33
Glucose 99 mg/dl (70-99) 10/23/24 03:33
Vital Signs and I&O:
Vital Signs
Temp Pulse Resp BP Pulse Ox
98.4 F 68 16 106/67 94
10/23/24 03:26 10/23/24 08:14 10/23/24 03:26 10/23/24 08:18 10/23/24 03:26
Vital Signs
Temp Pulse Resp BP Pulse Ox
98.4 F 68 16 106/67 94
10/23/24 03:26 10/23/24 08:14 10/23/24 03:26 10/23/24 08:18 10/23/24 03:26
Intake & Output
0410/22/24 10/23/24 10/24/24
06:59 06:59 06:59 06:59
Intake Total 920 / 920 640 / 640 1360 / 1360
Output Total 2475 / 2475 2160 / 2160 1000 / 1000
Balance -1555 / -1555 -1520 / -1520 360 / 360
Physical Exam
Physical Exam
GEN: NAD. AAOx3
HEENT: MMM
LUNGS: RA. No audible wheeze.
CV: SR on tele
EXT: No edema B/L
NEURO: Gross non-focal
SKIN: No rash
--- NOTE | 2024-10-23 08:49 | PN.CDI ---
CDI
- -
CDI:
Physician Documentation Request
Admit Date: 10/19/24 23:04
Dear Doctor Brittaney,
Please review the following and provide your response in the progress notes.
Clinical Indicators:
4/5 PROCEDURE: CR Chest Portable - 1 View
#IMPRESSION:
#...Small left pleural effusion (or mild pleural thickening)
#...in the left lateral costophrenic angle.
#...Mild to moderate asymmetric left lower lobe opacity.
#...Diagnostic possibilities are (1) mild subsegmental atelectasis/scarring or
#...(2) left lower lobe pneumonia (if there are signs/symptoms of pulmonary infection).
The diagnosis of left pleural effusion, atelectasis, and/or left lower lobe pneumonia was included in the signed CXR report.
Please indicate in the progress notes agreement that the above diagnosis is valid for this patient:
Left pleural effusion/atelectasis/LLL Pneumonia is a valid diagnosis (Please include it in your progress notes)
Left pleural effusion/atelectasis/LLL Pneumonia is not a valid diagnosis for this patient
Left pleural effusion/atelectasis/LLL Pneumonia is not yet confirmed but remains a suspected condition
Other (please specify)
Use of terms such as suspected, likely, concern for, or probable are acceptable for a diagnosis that is being evaluated, monitored or treated as if it exists and can be coded in the inpatient setting, when documented at the time of discharge.
Thank you,
Lyric Evans RN BSN CCDS
CDI Specialist
Please contact via tiger text
Please use your independent medical judgment in providing your response.
--- NOTE | 2024-10-23 09:00 | PTCARENOTE ---
Assumed pt care, VSS, monitor showing NSR. Pt denies pain, palpitations or shortness of breath. Call burnette in reach.
--- NOTE | 2024-10-23 09:41 | CM ---
[facility] and gave [facility], they are aware the doctor has cleared the pt to return back today. Guards in room are aware, nurse awaiting dc orders in the chart.
[2024-10-23 11:34] VITALS: BP 97/62
--- NOTE | 2024-10-23 12:57 | W.PN.HOSP.TC ---
Addendum entered and electronically signed by Lyric George MD 10/23/24 15:25:
I saw and evaluated the patient independently. I reviewed the resident�s note and agree with findings and plan as documented by Dr. Quispe.
GENERAL: well developed, well nourished, male in no apparent distress
HEENT: NC/AT
HEART: regular rate and rhythm, +S1, +S2
LUNGS : clear to auscultation bilaterally
ABDOM: soft, nontender, nondistended, + bowel sounds
EXT: no cyanosis, clubbing, or edema
NEUROLOGIC: grossly intact
New Atrial Flutter with RVR--pt did not feel his heart racing--apprec cards--S/p successful YANG/cardioversion on 10/22--EF decreased to 35%--possibly rate related?--no plans for cardiac cath--now on toprol XL BID, lisinopril--Eliquis (was on cardizem
drip but did not tolerate as became hypotensive)--no clinical CHF noted--will need follow up with cards and repeat echo in a few months
History of RA with Peripheral Neuropathy--History is unclear in this regard--Not on any DMARD type therapy for reported RA--Continue amitriptyline for chronic pain
GERD - Stable. Continue PPI.
DVT Proph--cont Eliquis
Code Status-- Full code
left pleural effusion clinically is not of any concern and showed only on CXR
Addendum entered and electronically signed by Lori Quispe MD, Resident 10/23/24 15:05:
per CDI
Small left pleural effusion effusion on CXR- asymptomatic, not agreeable to atelectasis or pneumonia.
Original Note:
Today's Communication/Plan
-
Dispo meds-
Lisinopril 2.5 mg 1 tablet daily
Eliquis 5 mg twice daily
Metoprolol succinate 25 mg twice daily daily
Plan for repeat echocardiogram in 3 months after discharge
F/u with cardiology 2 months if released from [facility]
Assessment / Plan
Assessment / Plan
A/P: Patient is a 59y M with PMH significant for RA and neuropathy who presents to ED for evaluation of tachycardia.
Plan
#New Atrial Flutter with RVR
#S/p successful YANG/cardioversion on 10/22
Ejection fraction was decreased to 35% on YANG
Initially was managed with Cardizem drip, however patient became hypotensive and gtt was stopped
Transition to Toprol-XL 25 mg twice daily plus lisinopril 2.5 mg daily per cards
[id number] score - 0, currently on Eliquis 5 mg twice daily(age 59, Creat 1.0).
Monitor for any new symptoms, etc.
HD stable and no CHF clinically
Appreciate cardiology input
DC today to [facility]
History of RA
Peripheral Neuropathy
History is unclear in this regard.
Not on any DMARD type therapy for reported RA.
Continue amitriptyline for chronic pain
GERD
- Stable. Continue PPI.
DVT Prophylaxis: Eliquis
Code Status: Full
Anticipated Discharge: Today
Subjective/Interval History
-
Date of Service: October 23, 2024
no overnight events
Objective Data
-
Labs:
Laboratory Results
10/23/24
03:33
WBC 7.2
Hgb 13.2
Hct 37.9 L
Plt Count 197
Sodium 138
Potassium 4.1
Chloride 106
Carbon Dioxide 26
BUN 22 H
Creatinine 1.1
Glucose 99
Calcium 8.5
Vital Signs:
Vital Signs
Temp Pulse Resp BP Pulse Ox
98.4 F 75 20 97/62 95
10/23/24 11:34 10/23/24 11:34 10/23/24 11:34 10/23/24 11:34 10/23/24 11:34
I&O
10/22/24 10/23/24 10/24/24
06:59 06:59 06:59
Intake Total 640 / 640 1360 / 1360
Output Total 2160 / 2160 1000 / 1000
Balance -1520 / -1520 360 / 360
Review of Systems
-
All other systems: Reviewed and negative
Physical Exam
-
General: No Apparent Distress and Comfortable
HEENT: Normocephalic and Atraumatic
Respiratory: Clear to Auscultation
Cardiac: Regular Rhythm and S1/S2; Negative Murmur or Rub
GI: Soft, Nontender and Nondistended
Skin: Warm and Dry
Neuro: AO x 3
Psych: Calm
Data Reviewed
-
Labs: Labs Reviewed by me and Discussed with Physician
--- NOTE | 2024-10-23 16:22 | W.DCSUMMARY ---
Addendum entered and electronically signed by Lyric George MD 10/24/24 07:13:
Read, reviewed, and agree. See same day progress note for additional details. Time spent coordinating care, DC planning, review of DC plan of care with resident, transition of care, review of records in EMR, med rec, consults, notes, d/w
consultants, nursing, family, and CM = 31 minutes
Original Note:
Discharge Summary
Discharge Data
Date of Admission: 10/19/24
Date of Discharge: 10/23/24
-
Pending Results: No
Hospital Course
Discharging Physician : Dr Lori Quispe, Dr Lyric George
Disposition : Group Home
Primary care physician : unknown
Principal Discharge diagnosis :
New atrial flutter with RVR
Chronic Discharge diagnosis :
History of RA with peripheral neuropathy
GERD
Hospital Course : 59-year-old male presented to [facility] with tachycardia. On workup, EKG showed atrial flutter with RVR. Cardiology was consulted and patient was started on Cardizem drip. However he became hypotensive and Cardizem drip
was then discontinued. Beta pepito was initiated. Patient had a successful YANG/cardioversion on 10/22. He returned to normal sinus rhythm with heart rate between 60-70. He was [facility] to [email or web address] on toprol
XL 25 mg twice daily plus lisinopril 2.5 mg daily plus Eliquis 5 mg twice daily.
Important imaging findings :
10/20 chest x-ray:
1. Mild cardiomegaly with suggestion of elevated pulmonary venous pressures.
2. Small left pleural effusion (or mild pleural thickening) in the left lateral costophrenic angle.
Procedure findings :
Transesophageal echocardiogram 10/22 :
Severely reduced left ventricular systolic function. LVEF 15-20%.
Reduced right ventricular systolic function.
Biatrial enlargement.
No left atrial appendage thrombus.
No significant valvular disease.
Discharge Plan
-
Patient Disposition: Group Home
Discharge Diagnosis/Procedures: New onset atrial flutter with rapid ventricular response
S/p successful YANG/cardioversion on 10/22
History of RA
Peripheral neuropathy
GERD
Cardiomyopathy ejection fraction 15% by transesophageal echo 10/22/24
Condition: Good
Diet: Low Cholesterol
Activity: No restrictions
Driving Restrictions: As prior to admission
Bathing Restrictions: None
Others Tests: -You will need a repeat echocardiogram in 3 months (01/2025) to follow up on weakened heart monitor (cardiomyopathy).
Referrals:
[facility],Fac[facility] [Family Provider] -
Servando Zimmerman MD [Active] - 01/29/25 12:40 pm (You have an appointment to see Dr. Zimmerman's and his physician assistant nurse manager, Kisha, at the [facility] office on 01/29/2025 at 12:40 PM. Please call [phone] if you need to reschedule.)
Additional Discharge Medication Instructions: New onset atrial flutter with RVR
YANG/cardioversion done on 10/22
Recommend:
Metoprolol succinate (Toprol XL) 25 mg 1 tablet to be taken twice daily. Toprol XL (metoprolol succinate) replaces Lopressor (metoprolol tartrate).
Lisinopril 2.5 mg 1 tablet to be taken daily
Eliquis 5 mg 1 tablet to be taken twice a day
Prescriptions:
New
Eliquis 5 mg Tablet
5 mg PO BID Qty: 60 0RF
lisinopril 2.5 mg tablet
2.5 mg PO DAILY 30 Days Qty: 30 0RF
metoprolol succinate [Toprol XL] 25 mg tablet extended release 24 hr
25 mg PO BID 30 Days Qty: 60 0RF
Continued
acetaminophen 500 mg Tablet
1,000 mg PO BID
tamsulosin 0.4 mg Capsule
0.8 mg PO DAILY
amitriptyline 100 mg Tablet
100 mg PO HS
omeprazole 20 mg Capsule,Delayed Release(Dr/Ec)
20 mg PO DAILY Qty: 0 0RF
Discontinued
metoprolol tartrate 50 mg Tablet
50 mg PO DAILYPRN PRN (Reason: 25mg ineffective)
metoprolol tartrate 25 mg Tablet
25 mg PO BID
metoprolol tartrate 25 mg Tablet
25 mg PO DAILYPRN PRN (Reason: Abnormal HR)
Discharge Orders:
Discharge Patient (As Directed); Ordered 10/23/24
Ordered By: Lori Quispe
Care Plan Goals
Care Plan Goals:
Problem: Readiness for enhanced knowledge related to diagnosis and treatment plan
Goal: Understand your diagnosis and treatment plan needs, including medications if applicable.
Instructions: Know your diagnosis, underlying causes and treatment plan options, including medications if applicable. Consult with your health care team to learn about your diagnosis and treatment plan, including medications if applicable.
Discharge Date and Time
Discharge Date/Time: 10/23/24 12:58
Print Language: OCCITAN
== END 2024-10-23 12:58 | DRG 309 ==
LOC: IVU 23:04
PROVIDERS: Student in an Organized Health Care Education/Training Program; ADMITTING PHYSICIAN Hospitalist; ATTENDING PHYSICIAN Internal Medicine; CONSULT PHYSICIAN Internal Medicine Cardiovascular Disease; EMERGENCY PHYSICIAN Emergency Medicine
PROC: 5A2204Z Restoration of Cardiac Rhythm, Single (ICD-10-PCS; 2024-10-22)
PROC: B24BZZ4 Ultrasonography of Heart with Aorta, Transesophageal (ICD-10-PCS; 2024-10-22)
DX: I48.92 Unspecified atrial flutter (principal); J90 Pleural effusion, not elsewhere classified; I48.91 Unspecified atrial fibrillation; M06.9 Rheumatoid arthritis, unspecified; K21.9 Gastro-esophageal reflux disease without esophagitis; G62.9 Polyneuropathy, unspecified; I34.0 Nonrheumatic mitral (valve) insufficiency; G89.29 Other chronic pain; Z79.01 Long term (current) use of anticoagulants; Z79.899 Other long term (current) drug therapy; Z79.02 Long term (current) use of antithrombotics/antiplatelets; Z87.891 Personal history of nicotine dependence; Z79.82 Long term (current) use of aspirin
CPT/HCPCS: 71045; 80048; 80053; 80061; 83735; 83880; 84443; 84484; 85025; 85027; 85379; 87070; 93005; 93312; 93320; 93325; 96365; 96366; 96375; 99291

== ENCOUNTER 2025-01-15 16:47 | Inpatient (IN) | payer OTHER, SELFPAY ==
[2025-01-15] VITALS (17 sets, daily range): BP systolic 99–154; BP diastolic 70–101; BMI 29.5; BMI 28.1
[2025-01-15 12:58] LABS: Hematocrit 40.6 % (39.0-52.0); Hemoglobin 14.0 g/dL (13.0-18.0); Mean Corp Hgb Conc. 34.5 g/dL (33.0-37.0); Mean Corpuscular Volume 90.2 fL (80.0-94.0); Nucleated Red Blood Cells % 0 % (-); Platelet Count 151 10^3/uL (130-400); Red Cell Dist. Width 12.8 % (11.5-14.5)
[2025-01-15 13:19] LABS: ALT (SGPT) 42 U/L (0-50); AST (SGOT) 29 U/L (17-59); Albumin 4.5 g/dl (3.5-5.0); Alkaline Phosphatase 49 U/L (38-126); Blood Urea Nitrogen 20 mg/dl (9-20); Calcium 9.8 mg/dl (8.4-10.2); Carbon Dioxide 28 mmol/L (22-30); Chloride 108 mmol/L (98-107); Glucose 98 mg/dl (70-99); Potassium 5.0 mmol/L (3.5-5.1); Sodium 142 mmol/L (135-145); Total Protein 7.6 g/dl (6.3-8.2); eGFR > 60.00
--- NOTE | 2025-01-15 13:23 | ED.GENMED ---
History of Present Illness
General
Chief Complaint: Cardiac Symptoms
Time Seen by Provider: 01/15/25 13:02
History of Present Illness
History of Present Illness:
Patient is a 59-year-old man with history of atrial flutter on Eliquis and metoprolol, COPD presenting to the emergency department chest pain shortness for the past week. Patient states he has been having significant shortness of breath especially
upon exertion and upon lying flat. He states that this is similar to when he was in atrial flutter last time he was here. Per chart review patient was admitted in October for new onset atrial flutter. At that time his EF was found to be 15 to 20%.
He was not volume overloaded so he has not been on any diuretics. He does state that he feels more swollen. He denies any nausea vomiting diarrhea. No fevers or chills. Has been compliant with all his medications.
Phy Exam
Physical Exam
Physical Exam:
GENERAL: in no acute distress
HEENT: normocephalic, extraocular movements intact, moist oral mucosa
NECK: normal inspection
RESPIRATORY: no respiratory distress, fine crackles at bases
CARDIOVASCULAR: regular rhythm tachycardic rate
ABDOMEN/: soft, non-distended, non-tender to palpation, no rebound or guarding
EXTREMITIES: non-tender, no edema/swelling
NEUROLOGIC: awake and alert, moves all extremities
SKIN: warm
Course
Orders/Labs/Results
Orders:
Orders
01/15/25 12:40
Electrocardiogram (*1) Urgent
Reason for Study: Chest Pain
EKG- Treatment ONCE
01/15/25 12:48
Complete Blood Count/With Diff Urgent
Comprehensive Metabolic Panel Urgent
Magnesium Urgent
Comment: ADD ON
NT-proBNP Urgent
Comment: ADD ON
Troponin I Urgent
01/15/25 13:18
Add On- LAB Urgent
Tests Added?: bnp, magnesium
CR Chest - 2 Views Urgent
Comment:
Reason For Exam: crackles at bases
Abnormal Lab Results
01/15/25
12:48
RBC 4.50 L 10^6/uL
(4.70-6.10)
MCH 31.1 H pg
(27.0-31.0)
Monocytes % 10.6 H %
(1.7-9.3)
Chloride 108 H mmol/L
(98-107)
01/15/25 12:48
01/15/25 12:48
Vital Signs
Initial and Last Documented VS:
Initial Vital Signs
Temp Pulse Resp Pulse Ox
97.8 F 142 22 97
01/15/25 12:42 01/15/25 12:42 01/15/25 12:42 01/15/25 12:42
Last Documented Vital Signs
Temp Pulse Resp BP Pulse Ox
97.8 F 140 13 112/89 95
01/15/25 12:42 01/15/25 15:15 01/15/25 15:15 01/15/25 15:00 01/15/25 15:15
MDM/Problems Addressed
Differential Diagnosis Includes:
Patient is a 59-year-old male with history of new onset atrial flutter on Eliquis and metoprolol presenting to the emergency department with shortness of breath upon exertion as well as orthopnea for the past week. On arrival vitals are notable for
heart rate in the 140s and exam does show fine crackles at the bases. EKG per my interpretation consistent with atrial flutter in the 2-1 block. Differential consists of atrial flutter versus CHF exacerbation versus electrolyte derangement versus
atypical ACS. Will check blood work including troponin and BNP. Will obtain chest x-ray.
*Pulse Oximetry
SaO2: 96
Oxygen Mode of Delivery: Room air
Patient hypoxic: no (97)
*Critical Care Note
Total Time (30-74mins, 75-104mins- exclusive of procedures): Not Applicable
Update Note
Update Note:
Chest x-ray per my interpretation is mild cardiomegaly but no obvious pleural effusion. Very minimal pulmonary vascular congestion. Blood work notable for BNP of 708. On reevaluation patient remains in atrial flutter.
Given his admission last time with consideration of amnio versus ischemic evaluation for his ejection fraction I did discuss with cardiology who evaluated patient at bedside. They recommended admission for IV diuresis as well as amiodarone with
plans for cardiac cath on . Discussed with hospitalist accepted patient to their service.
ED Attending Note
-
Portions of this chart may have been created with voice recognition software.� Occasional wrong word or��sound alike� substitutions may have occurred due to the inherent limitations of voice recognition software.
Discharge Plan
Departure
Patient Disposition: Admit
Date of Disposition: 01/15/25
Time of Disposition: 15:39
Presentation/result/management discussed w/ accepting MD/DO: Hospitalist
Discharge Problem:
Atrial flutter
Prescriptions:
No Action
acetaminophen 500 mg Tablet
1,000 mg PO BID
tamsulosin 0.4 mg Capsule
0.8 mg PO DAILY
amitriptyline 100 mg Tablet
100 mg PO HS
Eliquis 5 mg Tablet
5 mg PO BID Qty: 60 0RF
lisinopril 2.5 mg tablet
2.5 mg PO DAILY 30 Days Qty: 30 0RF
omeprazole 20 mg Capsule,Delayed Release(Dr/Ec)
20 mg PO DAILY Qty: 0 0RF
metoprolol succinate [Toprol XL] 25 mg tablet extended release 24 hr
25 mg PO BID 30 Days Qty: 60 0RF
Referrals:
[facility] [Family Provider, General]
Interventions
Interventions:
*Risk Screen - Suicide Last Done: 01/15/25 12:42
*General Assessment Last Done: 01/15/25 12:42
*Neglect/Abuse Screening Last Done: 01/15/25 12:42
*ED- Fall Risk Assessment Last Done: 01/15/25 13:17
*ED COVID-19 Vaccine History Last Done: 01/15/25 12:42
ED- Pulmonary Assessment Last Done: 01/15/25 13:17
ED- Cardiac Assessment Last Done: 01/15/25 13:17
Discharge Date and Time
Print Language: SPANISH
[2025-01-15 13:31] LABS: Troponin I < 0.012 ng/ml
[2025-01-15 13:34] LABS: Magnesium 2.2 mg/dl (1.6-2.3)
--- NOTE | 2025-01-15 15:06 | CON.CAR ---
Addendum entered and electronically signed by Rodri Ballesteros DO 01/16/25 06:45:
I saw and examined the patient 01/15/2025 1600.
The Still Pump Operator's note was reviewed and I agree with the note.
Comment:
Plan:
PCP: None locally
Card: initially seen by Dr Mcdermott
Impression:
Admitted with recurrent atrial flutter and acute HF 01/15/25
Recent admission for newly diagnosed CM, CHF and atrial flutter 10/19/24 until 10/23/24
CM EF 15-20% by YANG 10/22/24
Possibly tachycardia mediated CM
Recurrent typical atrial flutter
s/p successful YANG/CV 10/22/24Chronic Eliquis OAC
Rheumatoid arthritis
History of COPD and/or asthma
Suboptimal social situation, Incarcerated, extradited from [place] to [place]
Peripheral neuropathy
Hypercoagulable state
YANG 10/22/24: EF 15-20%, reduced RV systolic function, no NICK thrombus, no significant valve disease
Plan:
IV Cardizem for rate control
Transition from Eliquis to IV Heparin in anticipation of possible left heart cath to eval coronary anatomy.
His CM may be tachycardia mediated however evaluation of potential obstructive CAD is reasonable given his age and risk factors for disease. Check echo and if remains depressed consider left heart cath
Amiodarone load and consider for repeat cardioversion inpatient vs outpt
He may ultimately benefit from ablation for symptomatic, recurrent atrial flutter.
Cont Toprol
Cont IV diuresis
HPI: Patient came to [facility] ER today with palpitations, chest pressure and SOB and is being admitted with recurrent atrial flutter and acute HF, cardiology has been consulted. Patient was just admitted to [facility] 10/19/24 until 10/23/24 with newly diagnosed
atrial flutter. Patient denied any h/o arrhythmia. Patient was diuresed and eventually had YANG/CV 10/22/24. Patient was successfully CV'd to SR, but YANG showed EF down at 15-20%. Patient was d/c'd on Eliquis and with lisinopril and Toprol XL with the
plan for cardiology office follow-up which is currently scheduled for 01/29/25. Patient says that over the last week he has had palpitations when getting out of the shower at the halfway and that he has orthopnea and EASON. Patient noted to be
tachycardic today and was referred to the ER. Patient found to be in atrial flutter and pro-BNP higher than previous.
�
Original Note:
Consultation
Consultation Request
Date/Time Consultation Requested: 01/15/2025
Date/Time Consultation Performed: 01/15/2025
Requesting Provider: Dr. Goyal in the ER
Performing Provider: Dr. Ballesteros
Reason for Consultation: Acute HFrEF, recurrent atrial flutter with RVR
Medical History
-
History of Present Illness:
Patient came to [facility] ER today with palpitations, chest pressure and SOB and is being admitted with recurrent atrial flutter and acute HF, cardiology has been consulted. Patient was just admitted to [facility] 10/19/24 until 10/23/24 with newly diagnosed
atrial flutter. Patient denied any h/o arrhythmia. Patient was diuresed and eventually had YANG/CV 10/22/24. Patient was successfully CV'd to SR, but YANG showed EF down at 15-20%. Patient was d/c'd on Eliquis and with lisinopril and Toprol XL with the
plan for cardiology office follow-up which is currently scheduled for 01/29/25. Patient says that over the last week he has had palpitations when getting out of the shower at the halfway and that he has orthopnea and EASON. Patient noted to be
tachycardic today and was referred to the ER. Patient found to be in atrial flutter and pro-BNP higher than previous.
PM:
Recent admission for newly diagnosed CM, CHF and atrial flutter 10/19/24 until 10/23/24
CM EF 15-20% by YANG 10/22/24
Possibly tachycardia mediated CM
Recurrent typical atrial flutter
s/p successful YANG/CV 10/22/24
Chronic Eliquis OAC
Rheumatoid arthritis
History of COPD and/or asthma
Suboptimal social situation, extradited from [place] to [place]
Peripheral neuropathy
Hypercoagulable state
Past Medical History
Past Medical History: Arrhythmias (No prior history of arrhythmia), COPD and Other (Rheumatoid arthritis, peripheral neuropathy)
Past Surgical History: Appendectomy and Other (Hemorrhoidectomy)
Social History
Tobacco: Former Smoker (Quit age 18)
Alcohol: None
Drug: None
Personal:
Living: Alone
Family History
Family History: Early CAD (father with CAD)
Allergies / Home Medications
Allergy/AdvReac Type Severity Reaction Status Date / Time
Penicillins Allergy Severe Anaphylaxis Verified 01/15/25 12:41
tomato Allergy Anaphylaxis Verified 01/15/25 12:41
�Medication �Instructions �Recorded �Confirmed �Type
acetaminophen 500 mg tablet 1,000 mg PO BID Pain 10/19/24 10/19/24 History
amitriptyline 100 mg tablet 100 mg PO HS NEUROPATHIC PAIN 10/19/24 10/19/24 History
tamsulosin 0.4 mg capsule 0.8 mg PO DAILY BPH 10/19/24 10/19/24 History
apixaban 5 mg tablet (Eliquis) 5 mg PO BID #60 tabs 10/23/24 Rx
lisinopril 2.5 mg tablet 2.5 mg PO DAILY Heart Failure 30 10/23/24 Rx
days #30 tabs
metoprolol succinate 25 mg 25 mg PO BID 30 days #60 tabs 10/23/24 Rx
tablet,extended release 24 hr
(Toprol XL)
omeprazole 20 mg capsule,delayed 20 mg PO DAILY Gastrointestinal 10/23/24 10/19/24 Rx
release issue #0 caps
Review of Systems
-
History Source: Patient
All other systems: Negative unless noted
Physical Exam
Vital Signs
Temp Pulse Resp BP Pulse Ox
97.8 F 139 12 122/83 95
01/15/25 12:42 01/15/25 14:30 01/15/25 14:30 01/15/25 14:05 01/15/25 14:30
GEN: NAD. AAOx3
HEENT: EOMI, MMM
LUNGS: RA. No wheeze or rales
CV: Atrial flutter on tele. Irreg irreg, S1/S2, no murmur
ABD: soft, BS+, NT, ND
EXT: Trace B/L LE edema.
NEURO: Gross non-focal
SKIN: No rash
Lab Results
01/15/25 12:48
01/15/25 12:48
Troponin I < 0.012 ng/ml 01/15/25 12:48
Pfp-W-Ngqtaevnxhw Pept 708 pg/ml 01/15/25 12:48
Impression / Plan
-
PCP: None locally
Card: None
Impression:
Admitted with recurrent atrial flutter and acute HF 01/15/25
Recent admission for newly diagnosed CM, CHF and atrial flutter 10/19/24 until 10/23/24
CM EF 15-20% by YANG 10/22/24
Possibly tachycardia mediated CM
Recurrent typical atrial flutter
s/p successful YANG/CV 10/22/24
Chronic Eliquis OAC
Rheumatoid arthritis
History of COPD and/or asthma
Suboptimal social situation, extradited from [place] to [place]
Peripheral neuropathy
Hypercoagulable state
YANG 10/22/24: EF 15-20%, reduced RV systolic function, no NICK thrombus, no significant valve disease
Plan:
-Patient came to [facility] ER today with palpitations, chest pressure and SOB and is being admitted with recurrent atrial flutter and acute HF, cardiology has been consulted. Patient was just admitted to [facility] 10/19/24 until 10/23/24 with newly diagnosed
atrial flutter. Patient denied any h/o arrhythmia. Patient was diuresed and eventually had YANG/CV 10/22/24. Patient was successfully CV'd to SR, but YANG showed EF down at 15-20%. Patient was d/c'd on Eliquis and with lisinopril and Toprol XL with the
plan for cardiology office follow-up which is currently scheduled for 01/29/25. Patient says that over the last week he has had palpitations when getting out of the shower at the halfway and that he has orthopnea and EASON. Patient noted to be
tachycardic today and was referred to the ER. Patient found to be in atrial flutter and pro-BNP higher than previous.
-ECG reviewed by me looks like typical atrial flutter with RVR
-Start Cardizem gtt ordered rate 10 mg/hr, ordered by me
-Continue outpatient dose of Toprol XL 25 mg BID
-Start amiodarone 200 mg TID, ordered by me
-Patient reports compliance with Eliquis 5 mg BID (age 59, Cre 1.0). Last dose of Eliquis was 01/15/2025 AM, hold Eliquis for possible cardiac cath. Start heparin gtt 01/15/2025 PM, cannot please order because weight not recorded, will follow-up in
order when able.
-Recheck echo in a.m., ordered by me. If EF remains low then proceed with cardiac cath. If EF has improved and troponins remain undetectable then we might forego cardiac cath
-Check troponin tonight and again tomorrow in the morning
-Lasix 40 mg IV x 1 in the ER ordered by me. Patient was not taking a diuretic prior to admission, recommend Lasix 40 mg IV daily.
-Continue Toprol XL as noted above
-Continue outpatient dose of lisinopril 2.5 mg daily
--- NOTE | 2025-01-15 16:28 | HPS.HSE ---
Family Physician
-
Family Physician: [facility]
Chief Complaint
-
chest tightness
History of Present Illness
59-year-old male past medical history of atrial flutter on Eliquis, arthritis, peripheral neuropathy, GERD, COPD presenting with chest tightness for the past few days. He has been having significant shortness of breath with exertion and lying flat.
This is similar to when he had atrial flutter last time he was here. He was admitted here in October for new onset atrial flutter. At that time ejection fraction was 15 to 20%. Denies nausea vomiting or diarrhea. Denies any fevers or chills.
Denies any lower extremity swelling.
Medical History
Past Medical History
Past Medical History: Reports Other (atrial flutter on Eliquis, arthritis, peripheral neuropathy, GERD, COPD)
Past Surgical History: Reports None
Social History
Tobacco: Non-smoker
Alcohol: None
Drug: None
Family History
Family History: Not pertinent
Allergies / Home Medications
Allergies reflects when Allergies were last updated in [employer].
Home Medications with original date entered in [employer]
Allergy/Medication List:
Allergies
Allergy/AdvReac Type Severity Reaction Status Date / Time
Penicillins Allergy Severe Anaphylaxis Verified 01/15/25 12:41
tomato Allergy Anaphylaxis Verified 01/15/25 12:41
Home Medications
acetaminophen 500 mg tablet 1,000 mg PO BID Pain 10/19/24
amitriptyline 100 mg tablet 100 mg PO HS NEUROPATHIC PAIN 10/19/24
tamsulosin 0.4 mg capsule 0.8 mg PO HS BPH 10/19/24
apixaban 5 mg tablet (Eliquis) 5 mg PO BID #60 tabs 10/23/24
lisinopril 2.5 mg tablet 2.5 mg PO DAILY Heart Failure 30 days #30 tabs 10/23/24
metoprolol succinate 25 mg tablet,extended release 24 hr (Toprol XL) 25 mg PO BID 30 days #60 tabs 10/23/24
atorvastatin 10 mg tablet 10 mg PO HS 01/15/25
finasteride 5 mg tablet 5 mg PO HS 01/15/25
omeprazole 20 mg capsule,delayed release 20 mg PO BID Gastrointestinal issue 01/15/25
therapeutic multivitamin 1 tab PO DAILY 01/15/25
Review of Systems
-
History Source: Patient
A 12 point ROS was completed and negative except as noted: Yes
Constitutional: Reports No Symptoms
EENT: Reports No Symptoms
Respiratory: Reports No Symptoms
Cardiac: Reports See HPI
Abdomen/GI: Reports No Symptoms
: Reports No Symptoms
Musculoskeletal: Reports No Symptoms
Skin: Reports No Symptoms
Neurological: Reports No Symptoms
Endocrine: Reports No Symptoms
Hematologic/Lymphatic: Reports No Symptoms
Psych: Reports No Symptoms
Physical Exam
Vital Signs
Vital Signs
Temp Pulse Resp BP Pulse Ox
97.8 F 141 14 112/89 95
01/15/25 12:42 01/15/25 15:30 01/15/25 15:30 01/15/25 15:00 01/15/25 15:30
Physical Exam
General: Well Developed, Well Nourished and No Apparent Distress
HEENT: NormoCephalic, Moist mucous membranes and Atraumatic
Respiratory: Clear
Cardiac: S1/S2, Regular Rhythm and Peripheral Edema; No Murmur or Rub
GI: Soft, Non Tender, Non Distended and Normal Bowel Sounds; No Organomegaly
Rectal: Deferred by Provider
Musculoskeletal: No Clubbing, No Cyanosis and No Edema
Skin: No Rash
Neuro: Nonfocal/grossly intact
Laboratory Results
-
01/15/25 12:48
01/15/25 12:48
Laboratory Results
Total Bilirubin 0.4 mg/dl (0.2-1.3) 01/15/25 12:48
AST 29 U/L (17-59) 01/15/25 12:48
ALT 42 U/L (0-50) 01/15/25 12:48
Alkaline Phosphatase 49 U/L (38-126) 01/15/25 12:48
Troponin I < 0.012 ng/ml 01/15/25 12:48
Data Reviewed
-
Lab Data: Labs Reviewed by me
Old Records: Reviewed
Impression/Plan
-
IMPRESSION:
PLAN:
# Recurrent atrial flutter with RVR
-Heart rate 140s
- Cardizem drip started
-Amiodarone started
- Plan for catheterization on
- Continue metoprolol
- Eliquis being held
- Heparin drip
# Volume overload secondary to chronic HFrEF
# History of tachycardia mediated cardiomyopathy
-Chest x-ray shows minimal linear opacity at the left lung base unchanged compared to prior, mild cardiomegaly
- EF 15 to 20%,
-Check I's and O's, daily weights
- Evidence of volume overload, 40 IV Lasix
- Continue lisinopril
COPD/asthma
Peripheral neuropathy
- Continue amitriptyline
Rheumatoid arthritis
GERD
- Continue omeprazole
BPH
- Continue tamsulosin, finasteride
Full code
DVT prophylaxis-heparin drip
Cardiac diet
[2025-01-15] MEDS: LASIX 40 MG IV (16:34)
[2025-01-15] MEDS: PACERONE 200 MG PO ×2 (16:35→22:34)
[2025-01-15] MEDS: CARDIZEM 125 IV (16:36)
[2025-01-15 20:14] LABS: Hematocrit 42.5 % (39.0-52.0); Hemoglobin 15.1 g/dL (13.0-18.0); Mean Corp Hgb Conc. 35.5 g/dL (33.0-37.0); Mean Corpuscular Volume 89.1 fL (80.0-94.0); Platelet Count 165 10^3/uL (130-400); Red Cell Dist. Width 12.6 % (11.5-14.5)
[2025-01-15 20:25] LABS: APTT 29.2 Sec (23.4-35.0)
[2025-01-15] MEDS: HEPARIN 4000 UNITS IV (20:43)
[2025-01-15] MEDS: TYLENOL 1000 MG PO (20:45)
[2025-01-15] MEDS: PROTONIX 40 MG PO (20:46)
[2025-01-15] MEDS: TOPROL XL 25 MG PO (20:46)
[2025-01-15] MEDS: HEPARIN 25000 UNITS/250 ML IV (20:51)
[2025-01-15] MEDS: FLOMAX 0.8 MG PO (22:33)
[2025-01-15] MEDS: ELAVIL 100 MG PO (22:33)
[2025-01-15] MEDS: LIPITOR 10 MG PO (22:34)
[2025-01-15] MEDS: PROSCAR 5 MG PO (22:35)
[2025-01-16] VITALS (13 sets, daily range): BP systolic 93–136; BP diastolic 61–118; BMI 28.0
--- NOTE | 2025-01-16 00:08 | PTCARENOTE ---
Assumed care on pt at 1900, aaox3, c/o SOB with exertion,2L O2 applied via NC, Pox 95% , A-flutter in the monitor with HR 140's. Cardizem gtt infusing at 10mg/hr and Heparin gtt started at 2049 at 1000unit/hour. BP stable. Call burnette within reach,
POC ongoing.
[2025-01-16 03:19] LABS: Hematocrit 40.8 % (39.0-52.0); Hemoglobin 14.4 g/dL (13.0-18.0); Mean Corp Hgb Conc. 35.3 g/dL (33.0-37.0); Mean Corpuscular Volume 89.9 fL (80.0-94.0); Nucleated Red Blood Cells % 0 % (-); Platelet Count 149 10^3/uL (130-400); Red Cell Dist. Width 12.9 % (11.5-14.5)
[2025-01-16 03:32] LABS: APTT 75.2 Sec (23.4-35.0)
[2025-01-16 03:41] LABS: ALT (SGPT) 42 U/L (0-50); AST (SGOT) 29 U/L (17-59); Albumin 4.3 g/dl (3.5-5.0); Alkaline Phosphatase 52 U/L (38-126); Blood Urea Nitrogen 21 mg/dl (9-20); Calcium 9.1 mg/dl (8.4-10.2); Carbon Dioxide 26 mmol/L (22-30); Chloride 107 mmol/L (98-107); Estimated Creatinine Clearance 79 ml/min; Glucose 108 mg/dl (70-99); Potassium 3.9 mmol/L (3.5-5.1); Sodium 139 mmol/L (135-145); Total Protein 7.2 g/dl (6.3-8.2); eGFR > 60.00
[2025-01-16] MEDS: CARDIZEM 125 IV ×2 (03:53→16:07)
[2025-01-16] MEDS: TYLENOL 1000 MG PO ×2 (09:04→21:18)
[2025-01-16] MEDS: THERAGRAN 1 TABLET PO (09:04)
[2025-01-16] MEDS: PACERONE 200 MG PO ×3 (09:05→22:51)
[2025-01-16] MEDS: TOPROL XL 25 MG PO (09:05)
[2025-01-16] MEDS: PROTONIX 40 MG PO ×2 (09:05→21:18)
[2025-01-16] MEDS: ZESTRIL 2.5 MG PO (10:30)
[2025-01-16] MEDS: LASIX 40 MG IV (10:31)
[2025-01-16 10:55] LABS: APTT 62.5 Sec (23.4-35.0)
[2025-01-16 11:13] LABS: Troponin I < 0.012 ng/ml
--- NOTE | 2025-01-16 13:39 | W.PN.CARDCBS ---
Addendum entered and electronically signed by Carlito Torres MD 01/16/25 15:52:
I saw and examined the patient.
The Etl Lead's note was reviewed and I agree with the note.
Comment: Briefly, 59-year-old man past medical history of heart failure with severely reduced ejection fraction and atrial flutter status post direct-current cardioversion 10/2024 who presents with chest discomfort and was found to have recurrent
atrial flutter with rapid ventricular response
Rates remain rapid at times in atrial flutter
Continue amiodarone
Increase metoprolol dose for heart rate goal less than 110
Wean diltiazem drip as able, not ideal given patient's LV dysfunction
AC with heparin drip
LV function has improved but remains moderate to severely reduced with an estimated EF of 31% based on echo today
Continue metoprolol, lisinopril and Farxiga
Blood pressure unlikely to tolerate addition of spironolactone
Tentative plan for left heart cath in a.m. to assess for CAD as a cause of his systolic dysfunction
Rest per Kisha Trinidad
Original Note:
Today's Communication / Plan
-
Cardiac cath in AM
Cont amiodarone
Cont Heparin gtt
Impression / Plan
-
PCP: None locally
Card: None
Impression:
Admitted with recurrent atrial flutter and acute HF 01/15/25
Recent admission for newly diagnosed CM, CHF and atrial flutter 10/19/24 until 10/23/24
CM EF 15-20% by YANG 10/22/24, 31% by TTE 01/16/2025
Possibly tachycardia mediated CM
Recurrent typical atrial flutter
s/p successful YANG/CV 10/22/24
Chronic Eliquis OAC
Rheumatoid arthritis
History of COPD and/or asthma
Suboptimal social situation, extradited from [place] to [place]
Peripheral neuropathy
Hypercoagulable state
YANG 10/22/24: EF 15-20%, reduced RV systolic function, no NICK thrombus, no significant valve disease
Echo 01/16/2025: EF 31%, normal RV size with reduced RV systolic function, mild MR
Plan:
-Weight is down 1 lb overnight with Lasix 40 mg IV daily. Patient was not taking a diuretic prior to admission.
-Cre stable at 1.0 labs reviewed by me 01/16/25
-Continue outpatient dose of Toprol XL 25 mg BID
-Continue outpatient dose of lisinopril 2.5 mg daily
-Start Farxiga 10 mg daily, ordered by me 01/16/2025
-Echo from 01/16/2025 reviewed and summarized above by me. EF remains low at 31% although improved compared to YANG from 10/22/2024. Recommend ischemic evaluation with cardiac catheterization. Patient added for cardiac catheterization on 01/17/2025.
-CM could also be tachycardia mediated. Patient had successful YANG/CV on 10/22/2024 and recurred with atrial flutter at an unknown date although patient feels symptoms recurred about a week ago. ECG reviewed by me 01/16/25 shows ongoing atrial flutter.
-Cardizem gtt running at 10 mg/hr on 01/16/2025, will continue for now to help with rate control efforts
-New to amiodarone 200 mg TID on admission. QTc 525 ms on ECG reviewed by me 01/16/2025. Pending results of cardiac catheterization we will make another attempt at rhythm control with CV prior to discharge and then will likely continue AAD for
ongoing rhythm control efforts.
-Patient reports compliance with Eliquis 5 mg BID (age 59, Cre 1.0). Last dose of Eliquis was 01/15/2025 AM, holding Eliquis for possible cardiac cath.
HPI: Patient came to [facility] ER today with palpitations, chest pressure and SOB and is being admitted with recurrent atrial flutter and acute HF, cardiology has been consulted. Patient was just admitted to [facility] 10/19/24 until 10/23/24 with newly diagnosed
atrial flutter. Patient denied any h/o arrhythmia. Patient was diuresed and eventually had YANG/CV 10/22/24. Patient was successfully CV'd to SR, but YANG showed EF down at 15-20%. Patient was d/c'd on Eliquis and with lisinopril and Toprol XL with the
plan for cardiology office follow-up which is currently scheduled for 01/29/25. Patient says that over the last week he has had palpitations when getting out of the shower at the halfway and that he has orthopnea and ESAON. Patient noted to be
tachycardic today and was referred to the ER. Patient found to be in atrial flutter and pro-BNP higher than previous.
Progress Note - Digital Marketing Manager
Subjective
Date of Service: January 16, 2025
No palpitations
Objective
Labs:
01/16/25 03:02
01/16/25 03:02
Labs
Hgb 14.4 g/dL (13.0-18.0) 01/16/25 03:02
Hct 40.8 % (39.0-52.0) 01/16/25 03:02
Plt Count 149 10^3/uL (130-400) 01/16/25 03:02
APTT 62.5 Sec (23.4-35.0) H 01/16/25 10:28
Sodium 139 mmol/L (135-145) 01/16/25 03:02
Potassium 3.9 mmol/L (3.5-5.1) 01/16/25 03:02
BUN 21 mg/dl (9-20) H 01/16/25 03:02
Creatinine 1.0 mg/dL (0.7-1.3) 01/16/25 03:02
Glucose 108 mg/dl (70-99) H 01/16/25 03:02
Troponins
01/15/25 01/16/25
12:48 10:28
Troponin I < 0.012 < 0.012
Vital Signs and I&O:
Vital Signs
Temp Pulse Resp BP Pulse Ox
97.8 F 111 18 99/72 96
01/16/25 11:23 01/16/25 10:30 01/16/25 11:23 01/16/25 10:30 01/16/25 11:23
Vital Signs
Temp Pulse Resp BP Pulse Ox
97.8 F 111 18 99/72 96
01/16/25 11:23 01/16/25 10:30 01/16/25 11:23 01/16/25 10:30 01/16/25 11:23
Intake & Output
01/14/25 01/15/25 01/16/25 01/17/25
06:59 06:59 06:59 06:59
Intake Total 700 / 700 240 / 240
Output Total 1250 / 1250 500 / 500
Balance -550 / -550 -260 / -260
Physical Exam
Physical Exam
GEN: NAD. AAOx3
LUNGS: RA.
CV: Atrial flutter on tele.
EXT: Trace B/L LE edema.
NEURO: Gross non-focal
SKIN: No rash
--- NOTE | 2025-01-16 13:50 | W.PN.HOSP.TC ---
Today's Communication/Plan
-
Monitor vital signs see plan
Continue with Amio, Cardizem
Continue Lasix
Echo
Catheterization per cardiology
Assessment / Plan
Assessment / Plan
General: Well Developed, Well Nourished and No Apparent Distress
HEENT: NormoCephalic, Moist mucous membranes and Atraumatic
Respiratory: Clear
Cardiac: S1/S2, irregular Rhythm, tachycardia
GI: Soft, Non Tender, Non Distended and Normal Bowel Sounds; No Organomegaly
Musculoskeletal: No Edema
Neuro: Nonfocal/grossly intact
Recurrent atrial flutter with RVR
Heart rate still uncontrolled
Continue with Cardizem drip
-Amiodarone started
- Plan for catheterization on
- Continue metoprolol
- Eliquis being held
- Heparin drip
# Volume overload secondary to chronic HFrEF
# History of tachycardia mediated cardiomyopathy
-Chest x-ray shows minimal linear opacity at the left lung base unchanged compared to prior, mild cardiomegaly
- EF 15 to 20%, repeat echo 01/16 with a EF 30%
-Check I's and O's, daily weights
- Evidence of volume overload, 40 IV Lasix
- Continue lisinopril
COPD/asthma
Peripheral neuropathy
- Continue amitriptyline
Rheumatoid arthritis
GERD
- Continue omeprazole
BPH
- Continue tamsulosin, finasteride
Full code
DVT prophylaxis-heparin drip
I spent a total of 52 minutes with the patient or on the floor. More than 50% of this time involved counseling and coordination of care.
Anticipated Discharge: > 48 hours
Subjective/Interval History
-
Date of Service: January 16, 2025
Denies nausea
Objective Data
-
Labs:
Laboratory Results
01/16/25 01/16/25 01/16/25
03:02 10:28 17:30
WBC 7.5
Hgb 14.4
Hct 40.8
Plt Count 149
APTT 75.2 H 62.5 H Pending
Sodium 139
Potassium 3.9
Chloride 107
Carbon Dioxide 26
BUN 21 H
Creatinine 1.0
Glucose 108 H
Calcium 9.1
Total Bilirubin 0.6
AST 29
ALT 42
Alkaline Phosphatase 52
Vital Signs:
Vital Signs
Temp Pulse Resp BP Pulse Ox
97.8 F 111 18 99/72 96
01/16/25 11:23 01/16/25 10:30 01/16/25 11:23 01/16/25 10:30 01/16/25 11:23
I&O
01/15/25 01/16/25 01/17/25
06:59 06:59 06:59
Intake Total 700 / 700 240 / 240
Output Total 1250 / 1250 500 / 500
Balance -550 / -550 -260 / -260
--- NOTE | 2025-01-16 15:04 | CM ---
CM following for DC planning needs.
Pt. is an inmate @ [facility]. Call placed to [facility], spoke w/ Shan to provide clinical update @ [phone].
DC plan is to return to [facility].
CM to continue to follow. Will plan to call [facility] w/ update tomorrow.
[2025-01-16] MEDS: FARXIGA 10 MG PO (16:13)
[2025-01-16] MEDS: LOW STRENGTH ASPIRIN 81 MG PO (16:13)
--- NOTE | 2025-01-16 16:28 | PTCARENOTE ---
Pt converted to NSR w/ Pac's and PVC's. PA aware. EKG to be done.
--- NOTE | 2025-01-16 17:01 | W.PN.UPDATE ---
Update Note
Progress Note Update
Patient spontaneously converted to SR this afternoon. Cardizem gtt stopped by me. Cont higher dose Toprol XL 50 mg BID. Cont Heparin gtt. Cont amiodarone 200 mg TID. Cardiac cath in AM.
[2025-01-16 18:01] LABS: APTT 87.9 Sec (23.4-35.0)
[2025-01-16] MEDS: HEPARIN 25000 UNITS/250 ML IV (19:07)
[2025-01-16] MEDS: TOPROL XL 50 MG PO (21:18)
--- NOTE | 2025-01-16 21:50 | PTCARENOTE ---
Rec'd pt at change of shift. Pt AAO*3, VSS, and Sr on TELE monitor. Heparin infusing as ordered. Pt denies any pain or discomfort. Pt resting with call burnette in reach. See MAR and flowchart for full pt care and assessment.
[2025-01-16] MEDS: ELAVIL 100 MG PO (22:51)
[2025-01-16] MEDS: FLOMAX 0.8 MG PO (22:51)
[2025-01-16] MEDS: LIPITOR 10 MG PO (22:51)
[2025-01-16] MEDS: PROSCAR 5 MG PO (22:51)
[2025-01-16 23:27] LABS: APTT 88.3 Sec (23.4-35.0)
[2025-01-17] VITALS (20 sets, daily range): BP systolic 88–123; BP diastolic 57–75; BMI 28.3
[2025-01-17 06:11] LABS: Hematocrit 38.8 % (39.0-52.0); Hemoglobin 13.6 g/dL (13.0-18.0); Mean Corp Hgb Conc. 35.1 g/dL (33.0-37.0); Mean Corpuscular Volume 90.0 fL (80.0-94.0); Nucleated Red Blood Cells % 0 % (-); Platelet Count 141 10^3/uL (130-400); Red Cell Dist. Width 12.6 % (11.5-14.5)
[2025-01-17 06:14] LABS: APTT 101.3 Sec (23.4-35.0)
--- NOTE | 2025-01-17 06:40 | PTCARENOTE ---
Addendum entered by Allen Roper RN 01/17/25 06:43:
wrong patient
Original Note:
Rec'd pt as admission from ED. Pt arrived with systolic BP in 180's and mild chest pain rating pain at a 1-2 on a scale of 1-10. Nitro gtt titrated according to order. Pt reported relief with titration and bp stable. Pt oriented to unit and
resting with call burnette in reach. See MAR and flowchart for full pt care and assessment.
[2025-01-17 06:45] LABS: Blood Urea Nitrogen 26 mg/dl (9-20); Calcium 9.1 mg/dl (8.4-10.2); Carbon Dioxide 25 mmol/L (22-30); Chloride 104 mmol/L (98-107); Estimated Creatinine Clearance 65 ml/min; Glucose 109 mg/dl (70-99); Potassium 4.1 mmol/L (3.5-5.1); Sodium 136 mmol/L (135-145); eGFR > 60.00
[2025-01-17] MEDS: THERAGRAN 1 TABLET PO (09:06)
[2025-01-17] MEDS: TYLENOL 1000 MG PO ×2 (09:06→19:32)
[2025-01-17] MEDS: LOW STRENGTH ASPIRIN 81 MG PO (09:06)
[2025-01-17] MEDS: TOPROL XL 50 MG PO ×2 (09:06→19:31)
[2025-01-17] MEDS: PROTONIX 40 MG PO ×2 (09:06→19:32)
[2025-01-17] MEDS: FARXIGA 10 MG PO (09:06)
[2025-01-17] MEDS: PACERONE 200 MG PO ×3 (09:07→22:18)
[2025-01-17] MEDS: ZESTRIL 2.5 MG PO (09:07)
[2025-01-17] MEDS: LASIX 40 MG IV (09:53)
[2025-01-17] MEDS: NSS 1000 IV (12:29)
--- NOTE | 2025-01-17 13:51 | W.PN.HOSP.TC ---
Today's Communication/Plan
-
Monitor vital signs see plan
Continue with Amio, metoprolol
Continue with IV diuresis
Cardiac cath today
Cardiology following
Assessment / Plan
Assessment / Plan
General: Well Developed, Well Nourished and No Apparent Distress
HEENT: NormoCephalic, Moist mucous membranes and Atraumatic
Respiratory: Clear
Cardiac: S1/S2, irregular Rhythm, tachycardia
GI: Soft, Non Tender, Non Distended and Normal Bowel Sounds; No Organomegaly
Musculoskeletal: No Edema
Neuro: Nonfocal/grossly intact
Recurrent atrial flutter with RVR
Now converted to normal sinus rhythm
On metoprolol, Amio
Cardiac catheterization 01/17
- Eliquis being held
- Heparin drip
# Volume overload secondary to chronic HFrEF
# History of tachycardia mediated cardiomyopathy
-Chest x-ray shows minimal linear opacity at the left lung base unchanged compared to prior, mild cardiomegaly
- EF 15 to 20%, repeat echo 01/16 with a EF 30%
-Check I's and O's, daily weights
- Evidence of volume overload, 40 IV Lasix
- Continue lisinopril
COPD/asthma
Peripheral neuropathy
- Continue amitriptyline
Rheumatoid arthritis
GERD
- Continue omeprazole
BPH
- Continue tamsulosin, finasteride
Full code
DVT prophylaxis-heparin drip
Anticipated Discharge: 24 - 48 hours
Subjective/Interval History
-
Date of Service: January 17, 2025
denies chest pain
Objective Data
-
Labs:
Laboratory Results
01/17/25
05:49
WBC 6.1
Hgb 13.6
Hct 38.8 L
Plt Count 141
APTT 101.3 H
Sodium 136
Potassium 4.1
Chloride 104
Carbon Dioxide 25
BUN 26 H
Creatinine 1.2
Glucose 109 H
Calcium 9.1
Vital Signs:
Vital Signs
Temp Pulse Resp BP Pulse Ox
98.0 F 73 20 100/57 95
01/17/25 12:00 01/17/25 13:00 01/17/25 12:00 01/17/25 12:45 01/17/25 13:00
I&O
01/16/25 01/17/25 01/18/25
06:59 06:59 06:59
Intake Total 700 / 700 1309 / 1309 48 / 48
Output Total 1250 / 1250 1725 / 1725 1400 / 1400
Balance -550 / -550 -416 / -416 -1352 / -1352
--- NOTE | 2025-01-17 14:09 | PTCARENOTE ---
Received pt post cath. VSS. Right radial band noted to be inflated. Pulse ox 96% on right hand. Pt denies any chest discomfort. Orders noted. Will monitor.
--- NOTE | 2025-01-17 14:46 | ITS.CL.CATH ---
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
Cardiac Catheterization
Procedure Report:
LEFT HEART CATHETERIZATION
Date of Procedure: January 17, 2025
Referring: Dr. Carlito Torres
PROCEDURES:
1. Left heart catheterization with coronary and single-plane left ventriculography
INDICATION: This is a 59-year-old resident of [facility] with a past medical history notable for atrial flutter on apixaban and severe LV dysfunction. He was admitted to [facility] in October 2024 with new onset atrial
flutter and was found to have severely reduced LVEF estimated 15-20%. He was cardioverted and started on oral anticoagulation as well as better rate control. He now returns with episode of chest tightness and recurring atrial flutter. His
troponin measurements have been undetectable throughout this hospitalization in the hospitalization in October. His LVEF by echocardiography i improved but has not normalized and is now estimated at 31%. The ventricle remains globally hypokinetic.
He is now referred for coronary angiography
ACCESS: Right radial artery, 6 Grenadian sheath
HEMODYNAMICS : (mmHg)
AO (s/d) : Patient got transiently hypotensive following the IV sedation and placement of 6 Grenadian sheath in the right radial artery with initial blood pressures of 73/51. He received IV fluid hydration with improvement in his blood pressure over
the next several minutes to 93/63
LV (s/d) : 92/16
LVEDP : 26
CORONARY FINDINGS
DOMINANCE: Right
LEFT MAIN: Normal
LEFT ANTERIOR DESCENDING: The LAD arises normally from the left main and runs in the anterior interventricular groove. The LAD is widely patent with only minor luminal irregularities noted. The distal vessel wraps completely around the apex with
the LAD supplying a significant portion of the inferior wall.
CIRCUMFLEX: The circumflex gives rise to an OM1 that arises very proximally running in a course typical of a ramus intermedius. OM 2 arises from the mid circumflex and is small. In the circumflex terminates in a small to medium caliber OM 3. Only
minor irregularities are noted
RIGHT CORONARY ARTERY: The right coronary artery is a dominant vessel with a smooth 50-60 % mid stenosis. The PDA is small
VENTRICULOGRAPHY: Left ventriculography is performed in GALDAMEZ projection. The digital single-plane left ventricular ejection fraction is estimated at 30% with mild catheter associated mitral regurgitation
SEDATION: 36 minutes of procedural sedation was utilized. An independent medical records custodian was present to assist with and help manage the patient's level of consciousness and physiologic status.
RADIATION SUMMARY: Fluoro Time (min): 5.5, Dose (mGy): 311, DAP (Gy.cm2) : 23.4
Closure Device: TR band
CONCLUSIONS
1. Moderate coronary disease involving the mid right coronary artery with smooth 50-60% stenosis.
2. Dilated cardiomyopathy with slowly improving LVEF estimated at 30% by ventriculography
3. Atrial flutter with rapid response
RECOMMENDATIONS
1. No significant left main disease. The mid right coronary stenosis potentially could cause symptoms but troponin levels have been not detectable in October and again during this hospitalization.
2. Continue loading with amiodarone and resume apixaban
3. Will increase atorvastatin from 10 mg to 40 mg daily
4. LV dysfunction is clearly out of proportion to the extent of coronary disease. Will push oral beta-pepito. Could consider iFR or stress testing to assess for significant inferior ischemia if symptoms persist
Copy to: Dr. Carlito Torrse
--- NOTE | 2025-01-17 16:08 | CM ---
CM continues to follow for DC planning needs.
Call to [facility] to provide clinical update; spoke w/ Goldie.
Upon DC, RN to contact [phone], [facility], to notify of DC.
DC paperwork should be printed and sent with guards per Goldie.
[2025-01-17] MEDS: ELIQUIS 5 MG PO (19:31)
[2025-01-17] MEDS: PROSCAR 5 MG PO (22:18)
[2025-01-17] MEDS: FLOMAX 0.8 MG PO (22:18)
[2025-01-17] MEDS: ELAVIL 100 MG PO (22:18)
[2025-01-17] MEDS: LIPITOR 40 MG PO (22:18)
--- NOTE | 2025-01-18 00:11 | PTCARENOTE ---
Received patient at change of shift. SR on the monitor, HR in the 60s. R radial dressing CDI. No complaints from pt at this time, call burnette within reach.
[2025-01-18 04:09] VITALS: BP 93/64
[2025-01-18 05:01] LABS: Hematocrit 37.4 % (39.0-52.0); Hemoglobin 13.1 g/dL (13.0-18.0); Mean Corp Hgb Conc. 35.0 g/dL (33.0-37.0); Mean Corpuscular Volume 92.6 fL (80.0-94.0); Nucleated Red Blood Cells % 0 % (-); Platelet Count 133 10^3/uL (130-400); Red Cell Dist. Width 12.8 % (11.5-14.5)
[2025-01-18 05:11] LABS: Blood Urea Nitrogen 26 mg/dl (9-20); Calcium 8.8 mg/dl (8.4-10.2); Carbon Dioxide 25 mmol/L (22-30); Chloride 104 mmol/L (98-107); Estimated Creatinine Clearance 65 ml/min; Glucose 99 mg/dl (70-99); Potassium 4.0 mmol/L (3.5-5.1); Sodium 136 mmol/L (135-145); eGFR > 60.00
[2025-01-18 08:07] VITALS: BP 113/62
[2025-01-18] MEDS: ZESTRIL 2.5 MG PO (08:18)
[2025-01-18] MEDS: FARXIGA 10 MG PO (08:18)
[2025-01-18] MEDS: PACERONE 200 MG PO ×3 (08:19→22:24)
[2025-01-18] MEDS: PROTONIX 40 MG PO ×2 (08:19→20:39)
[2025-01-18] MEDS: THERAGRAN 1 TABLET PO (08:19)
[2025-01-18] MEDS: TOPROL XL 50 MG PO ×2 (08:19→20:42)
[2025-01-18] MEDS: LOW STRENGTH ASPIRIN 81 MG PO (08:19)
[2025-01-18] MEDS: TYLENOL 1000 MG PO ×2 (08:19→20:43)
[2025-01-18] MEDS: ELIQUIS 5 MG PO ×2 (08:19→20:39)
[2025-01-18] MEDS: LASIX 40 MG IV (08:20)
--- NOTE | 2025-01-18 12:06 | W.PN.HOSP.TC ---
Today's Communication/Plan
-
Monitor vital signs see plan
Continue with IV diuresis
Continue with metoprolol, amiodarone
Assessment / Plan
Assessment / Plan
General: Well Developed, Well Nourished and No Apparent Distress
HEENT: NormoCephalic, Moist mucous membranes and Atraumatic
Respiratory: Clear
Cardiac: S1/S2, irregular Rhythm, tachycardia
GI: Soft, Non Tender, Non Distended and Normal Bowel Sounds; No Organomegaly
Musculoskeletal: No Edema
Neuro: Nonfocal/grossly intact
Recurrent atrial flutter with RVR
Now converted to normal sinus rhythm
On metoprolol, Amio
Cardiac catheterization 01/17 with no significant left main disease.
- Eliquis restarted
# Volume overload secondary to chronic HFrEF
# History of tachycardia mediated cardiomyopathy
-Chest x-ray shows minimal linear opacity at the left lung base unchanged compared to prior, mild cardiomegaly
- EF 15 to 20%, repeat echo 01/16 with a EF 30%
-Check I's and O's, daily weights
- Evidence of volume overload, 40 IV Lasix. Continue with IV diuresis per cardiology
- Continue lisinopril
COPD/asthma
Peripheral neuropathy
- Continue amitriptyline
Rheumatoid arthritis
GERD
- Continue omeprazole
BPH
- Continue tamsulosin, finasteride
Full code
DVT prophylaxis-Eliquis
Anticipated Discharge: Within 24 hours
Subjective/Interval History
-
Date of Service: January 18, 2025
denies pain
Objective Data
-
Labs:
Laboratory Results
01/18/25
04:16
WBC 5.3
Hgb 13.1
Hct 37.4 L
Plt Count 133
Sodium 136
Potassium 4.0
Chloride 104
Carbon Dioxide 25
BUN 26 H
Creatinine 1.2
Glucose 99
Calcium 8.8
Vital Signs:
Vital Signs
Temp Pulse Resp BP Pulse Ox
98.4 F 57 18 113/62 97
01/18/25 08:05 01/18/25 11:00 01/18/25 08:05 01/18/25 08:07 01/18/25 08:05
I&O
01/17/25 01/18/25 01/19/25
06:59 06:59 06:59
Intake Total 1309 / 1309 1458 / 1458
Output Total 1725 / 1725 2500 / 2500 1000 / 1000
Balance -416 / -416 -1042 / -1042 -1000 / -1000
[2025-01-18 12:15] VITALS: BP 103/62
--- NOTE | 2025-01-18 12:48 | PTCARENOTE ---
assement stable as documented. pt without complaints. Guards at bedside. Encouraged pt to sit OOB for meals
[2025-01-18 15:41] VITALS: BP 104/68
[2025-01-18 18:57] VITALS: BP 98/69
--- NOTE | 2025-01-18 21:46 | PTCARENOTE ---
Received patient at change of shift. SR on the monitor, HR in the 60s. VSS on room air. No complaints from pt at this time, call burnette within reach.
[2025-01-18 22:23] VITALS: BP 109/66
[2025-01-18] MEDS: LIPITOR 40 MG PO (22:24)
[2025-01-18] MEDS: ELAVIL 100 MG PO (22:24)
[2025-01-18] MEDS: PROSCAR 5 MG PO (22:24)
[2025-01-18] MEDS: FLOMAX 0.8 MG PO (22:24)
[2025-01-19 04:19] VITALS: BP 94/55
[2025-01-19 04:44] LABS: Hematocrit 39.7 % (39.0-52.0); Hemoglobin 13.8 g/dL (13.0-18.0); Mean Corp Hgb Conc. 34.8 g/dL (33.0-37.0); Mean Corpuscular Volume 91.9 fL (80.0-94.0); Nucleated Red Blood Cells % 0 % (-); Platelet Count 145 10^3/uL (130-400); Red Cell Dist. Width 12.7 % (11.5-14.5)
[2025-01-19 05:07] LABS: Blood Urea Nitrogen 29 mg/dl (9-20); Calcium 9.4 mg/dl (8.4-10.2); Carbon Dioxide 25 mmol/L (22-30); Chloride 104 mmol/L (98-107); Estimated Creatinine Clearance 65 ml/min; Glucose 104 mg/dl (70-99); Potassium 4.2 mmol/L (3.5-5.1); Sodium 137 mmol/L (135-145); eGFR > 60.00
--- NOTE | 2025-01-19 06:56 | W.PN.CARDCBS ---
Addendum entered and electronically signed by Servando Zimmerman MD 01/19/25 10:04:
I saw and examined the patient.
The VIBRATION TECHNICIAN or PA's note was reviewed and I agree with the note.
Comment: General: Well developed, well nourished in NAD.
Neck: Supple, no JVD, HJR, carotids +2 B/L, no bruits bilaterally.
Heart: Non displaced PMI, RRR, no murmurs, No S3, S4, no rubs.
Lungs: Scattered rhonchi
Extremities: No clubbing, cyanosis or edema bilaterally.
Neuro: Grossly nonfocal, awake, alert and oriented x3.
Remains in sinus rhythm. Stable cardiology status for discharge. Will need amiodarone follow-up studies. Follow-up has been arranged. Will need repeat echo at some point on medical therapy.
Original Note:
Today's Communication / Plan
-
Cont amiodarone 200 mg BID for 1 month then reduce to 200 mg once daily thereafter
Check CXR, TFTs and LFTs in 1 year
Medical management of nonobstructive CAD
D/C
Impression / Plan
-
PCP: None locally
Card: None
Impression:
Admitted with recurrent atrial flutter and acute HF 01/15/25
Recent admission for newly diagnosed CM, CHF and atrial flutter 10/19/24 until 10/23/24
CM EF 15-20% by YANG 10/22/24, 31% by TTE 01/16/2025
Possibly tachycardia mediated CM
Recurrent typical atrial flutter
s/p successful YANG/CV 10/22/24
Chronic Eliquis OAC
Rheumatoid arthritis
History of COPD and/or asthma
Suboptimal social situation, extradited from [place] to [place]
Peripheral neuropathy
Hypercoagulable state
Moderate coronary disease involving the mid right coronary artery with smooth 50-60% stenosis by cath 01/17/25
YANG 10/22/24: EF 15-20%, reduced RV systolic function, no NICK thrombus, no significant valve disease
Echo 01/16/2025: EF 31%, normal RV size with reduced RV systolic function, mild MR
Plan:
-Check weight 01/19/25, order placed by me. Discharge weight 10/21/24 was 186 lbs.
-Patient diuresed with Lasix 40 mg IV daily this admission. Patient was not taking a diuretic prior to admission.
-Outpatient dose of Toprol XL increased to 50 mg BID
-Continue outpatient dose of lisinopril 2.5 mg daily
-Start Farxiga 10 mg daily, ordered by me 01/16/2025
-EF 15-20% by echo 10/22/24 and patient was YANG/CV'd at that time to SR. Patient thinks he was in SR until about a week prior to admission when he started with racing heart and palpitations again. EF this admission was increased to 31%.
-Nonobstructive CAD by cath 01/17/25. Will continue to focus on rhythm control efforts.
-Patient with recurrent atrial flutter on admission, was loaded with amiodarone 200 mg TID and has received a 2 gram load as of 01/19/25 AM. Cont amiodarone 200 mg BID for 1 month then reduce to 200 mg once daily thereafter.
-On admission reviewed with patient potential long-term side effects of chronic amiodarone therapy including thyroid, lung and liver dysfunction. We talked about annual monitoring with blood work and CXR, will also put this on his d/c instructions
for continuity once he returns to the [facility].
-Patient reports compliance with Eliquis 5 mg BID (age 59, Cre 1.0).
-QTc 501 ms on ECG 01/17/25 reviewed by me 01/19/2025. Recheck ECG 01/19/25, ordered by me.
-Patient with moderate coronary disease involving the mid RCA with smooth 50-60% stenosis and plan is for medical management. Mid RCA stenosis potentially could cause symptoms but troponin levels have been not detectable in October and again during
this hospitalization. LV dysfunction is clearly out of proportion to the extent of CAD. Could consider iFR or stress testing to assess for significant inferior ischemia if symptoms persist
-LDL 97 on 10/20/24, increased dose of atorvastatin to 40 mg daily. Recheck CVE and LFTs in 3 months, included on d/c instructions.
-Patient is stable for d/c 01/19/25 pending ECG.
HPI: Patient came to [facility] ER today with palpitations, chest pressure and SOB and is being admitted with recurrent atrial flutter and acute HF, cardiology has been consulted. Patient was just admitted to [facility] 10/19/24 until 10/23/24 with newly diagnosed
atrial flutter. Patient denied any h/o arrhythmia. Patient was diuresed and eventually had YANG/CV 10/22/24. Patient was successfully CV'd to SR, but YANG showed EF down at 15-20%. Patient was d/c'd on Eliquis and with lisinopril and Toprol XL with the
plan for cardiology office follow-up which is currently scheduled for 01/29/25. Patient says that over the last week he has had palpitations when getting out of the shower at the correction and that he has orthopnea and EASON. Patient noted to be
tachycardic today and was referred to the ER. Patient found to be in atrial flutter and pro-BNP higher than previous.
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
Subjective
Date of Service: January 19, 2025
He denies pain
Objective
Labs:
01/19/25 04:23
01/19/25 04:23
Labs
Hgb 13.8 g/dL (13.0-18.0) 01/19/25 04:23
Hct 39.7 % (39.0-52.0) 01/19/25 04:23
Plt Count 145 10^3/uL (130-400) 01/19/25 04:23
APTT 101.3 Sec (23.4-35.0) H 01/17/25 05:49
Sodium 137 mmol/L (135-145) 01/19/25 04:23
Potassium 4.2 mmol/L (3.5-5.1) 01/19/25 04:23
BUN 29 mg/dl (9-20) H 01/19/25 04:23
Creatinine 1.2 mg/dL (0.7-1.3) 01/19/25 04:23
Glucose 104 mg/dl (70-99) H 01/19/25 04:23
Troponins
01/16/25
10:28
Troponin I < 0.012
Vital Signs and I&O:
Vital Signs
Temp Pulse Resp BP Pulse Ox
98 F 54 18 94/55 96
01/19/25 04:26 01/19/25 04:18 01/19/25 04:26 01/19/25 04:19 01/19/25 04:26
Vital Signs
Temp Pulse Resp BP Pulse Ox
98 F 54 18 94/55 96
01/19/25 04:26 01/19/25 04:18 01/19/25 04:26 01/19/25 04:19 01/19/25 04:26
Intake & Output
01/16/25 01/17/25 01/18/25 01/19/25
06:59 06:59 06:59 06:59
Intake Total 700 / 700 1309 / 1309 1458 / 1458
Output Total 1250 / 1250 1725 / 1725 2500 / 2500 2400 / 2400
Balance -550 / -550 -416 / -416 -1042 / -1042 -2400 / -2400
Physical Exam
Physical Exam
GEN: NAD. AAOx3
LUNGS: RA.
CV: SR on tele
NEURO: Gross non-focal
SKIN: No rash
[2025-01-19 07:35] VITALS: BP 101/78
[2025-01-19 07:37] VITALS: BMI 27.6
[2025-01-19] MEDS: TYLENOL 1000 MG PO (07:59)
[2025-01-19] MEDS: ZESTRIL 2.5 MG PO (07:59)
[2025-01-19] MEDS: LOW STRENGTH ASPIRIN 81 MG PO (07:59)
[2025-01-19] MEDS: ELIQUIS 5 MG PO (07:59)
[2025-01-19] MEDS: TOPROL XL 50 MG PO (07:59)
[2025-01-19] MEDS: THERAGRAN 1 TABLET PO (07:59)
[2025-01-19] MEDS: PROTONIX 40 MG PO (07:59)
[2025-01-19] MEDS: FARXIGA 10 MG PO (07:59)
[2025-01-19] MEDS: PACERONE 200 MG PO (08:00)
[2025-01-19] MEDS: LASIX 40 MG IV (08:00)
--- NOTE | 2025-01-19 09:17 | PTCARENOTE ---
Assessment as documented. VSS and no complaints. Patient pending discharge. Guards X2 at bedside
--- NOTE | 2025-01-19 10:24 | W.PN.HOSP.TC ---
Today's Communication/Plan
-
Monitor vital signs
see plan
Discussed with cardiology, discharge today.
Transition Lasix to oral
Continue with amiodarone, metoprolol
Assessment / Plan
Assessment / Plan
General: Well Developed, Well Nourished and No Apparent Distress
HEENT: NormoCephalic, Moist mucous membranes and Atraumatic
Respiratory: Clear
Cardiac: S1/S2, irregular Rhythm, tachycardia
GI: Soft, Non Tender, Non Distended and Normal Bowel Sounds
Musculoskeletal: No Edema
Neuro: Nonfocal/grossly intact
Recurrent atrial flutter with RVR
Now converted to normal sinus rhythm
On metoprolol, Amio
Cardiac catheterization 01/17 with no significant left main disease.
- Eliquis restarted
# Volume overload secondary to chronic HFrEF
# History of tachycardia mediated cardiomyopathy
-Chest x-ray shows minimal linear opacity at the left lung base unchanged compared to prior, mild cardiomegaly
- EF 15 to 20%, repeat echo 01/16 with a EF 30%
-Check I's and O's, daily weights
- Evidence of volume overload, 40 IV Lasix. Switch IV Lasix to 40 mg p.o. daily. Patient will follow-up with cardiology outpatient
- Continue lisinopril
Continue Farxiga
COPD/asthma
Peripheral neuropathy
- Continue amitriptyline
Rheumatoid arthritis
GERD
- Continue omeprazole
BPH
- Continue tamsulosin, finasteride
Full code
DVT prophylaxis-Eliquis
Anticipated Discharge: Today
Subjective/Interval History
-
Date of Service: January 19, 2025
Denies shortness of breath
Objective Data
-
Labs:
Laboratory Results
01/19/25
04:23
WBC 6.2
Hgb 13.8
Hct 39.7
Plt Count 145
Sodium 137
Potassium 4.2
Chloride 104
Carbon Dioxide 25
BUN 29 H
Creatinine 1.2
Glucose 104 H
Calcium 9.4
Vital Signs:
Vital Signs
Temp Pulse Resp BP Pulse Ox
98.0 F 52 16 101/78 96
01/19/25 07:32 01/19/25 10:00 01/19/25 07:32 01/19/25 07:35 01/19/25 07:35
I&O
01/18/25 01/19/25 01/20/25
06:59 06:59 06:59
Intake Total 1458 / 1458
Output Total 2500 / 2500 2400 / 2400 700 / 700
Balance -1042 / -1042 -2400 / -2400 -700 / -700
--- NOTE | 2025-01-19 10:26 | W.DCSUMMARY ---
Discharge Summary
Discharge Data
Date of Admission: 01/15/25
Date of Discharge: 01/19/25
-
Pending Results: No
Hospital Course
59-year-old male with past medical history of COPD/asthma, atrial flutter, peripheral neuropathy, rheumatoid arthritis, GERD, BPH came to the hospital with recurrent atrial flutter with RVR. Patient was initially started on IV Cardizem. Patient
heart rate continue to improve over time after he was started on amiodarone and metoprolol. Patient subsequently converted to normal sinus rhythm while in the hospital and remained in normal sinus rhythm prior to discharge. Patient also had
congestive heart failure exacerbation for which she was initially treated with IV Lasix which was later transitioned to p.o. Lasix prior to discharge. Echocardiogram was done which showed EF of 31% which was improved from prior echocardiogram.
Patient underwent cardiac catheterization which showed moderate coronary artery disease involving the mid right coronary artery. Patient did not receive any stents. Patient was seen by cardiology throughout hospitalization. Once patient symptoms
continue to improve, patient was then discharged back to halfway with instructions to follow-up with all his physicians outpatient.
Discharge Plan
-
Patient Disposition: Penitentiary
Discharge Diagnosis/Procedures: Paroxysmal typical atrial flutter with spontaneous conversion to sinus rhythm, amiodarone loading
acute heart failure with reduced ejections fraction
nonobstructive coronary artery disease
Condition: Fair
Diet: 2 Gram Sodium and Restrict fluids to 64 oz
Activity: As tolerated
Driving Restrictions: As prior to admission
Bathing Restrictions: None
Specialty Instructions: Weigh Daily- Call MD for wt gain/loss 3 lbs overnight/5 lbs in 1 week
Referrals:
[facility] [Family Provider, General]
Everton Mcdermott MD [Active, Cardiology] - 01/29/25 12:40 pm
Referral Note: You have an appt to see Dr. Mcdermott's physician patient support assistant, Kisha, at the [facility] office on 01/29/25 at 12:40 PM. Please call [phone] if you need to reschedule.
Additional Discharge Medication Instructions: -Take amiodarone 200 mg twice a day for 1 month and then reduce to 200 mg once a day thereafter.
-Check chest x-ray, liver function tests and thyroid function tests once a year while taking amiodarone.
-Increase atorvastatin 40 mg daily.
-Increase Toprol XL (metoprolol succinate) to 50 mg twice a day.
-Take Farxiga 10 mg once a day to help with heart failure
-Take Lasix (furosemide) 40 mg once a day to help with heart failure
Prescriptions:
New
atorvastatin 40 mg Tablet
40 mg PO HS Qty: 30 0RF
amiodarone 200 mg Tablet
200 mg PO BID Qty: 60 0RF
metoprolol succinate 50 mg Tablet Extended Release 24 Hr
50 mg PO BID Qty: 60 0RF
dapagliflozin propanediol 10 mg Tablet
10 mg PO DAILY Qty: 30 0RF
amiodarone 200 mg tablet
200 mg PO DAILY Qty: 30 11RF
furosemide [Lasix] 40 mg tablet
40 mg PO DAILY Qty: 30 0RF
aspirin 81 mg Tablet,Chewable
81 mg PO DAILY Qty: 0 0RF
Continued
acetaminophen 500 mg Tablet
1,000 mg PO BID
tamsulosin 0.4 mg Capsule
0.8 mg PO HS
amitriptyline 100 mg Tablet
100 mg PO HS
Eliquis 5 mg Tablet
5 mg PO BID Qty: 60 0RF
lisinopril 2.5 mg tablet
2.5 mg PO DAILY 30 Days Qty: 30 0RF
therapeutic multivitamin Tablet
1 tab PO DAILY
finasteride 5 mg Tablet
5 mg PO HS
omeprazole 20 mg capsule,delayed release(DR/EC)
20 mg PO BID
Discontinued
metoprolol succinate [Toprol XL] 25 mg tablet extended release 24 hr
25 mg PO BID 30 Days Qty: 60 0RF
atorvastatin 10 mg Tablet
10 mg PO HS
Discharge Orders:
Discharge Patient (As Directed); Ordered 01/19/25
Ordered By: Peter Smith
Care Plan Goals
Care Plan Goals:
Problem: Readiness for enhanced knowledge related to diagnosis and treatment plan
Goal: Understand your diagnosis and treatment plan needs, including medications if applicable.
Instructions: Know your diagnosis, underlying causes and treatment plan options, including medications if applicable. Consult with your health care team to learn about your diagnosis and treatment plan, including medications if applicable.
Discharge Date and Time
Discharge Date/Time: 01/19/25 12:17
Print Language: CROATIAN
[2025-01-19 11:30] VITALS: BP 107/63
== END 2025-01-19 12:17 | DRG 286 ==
LOC: IVU 16:47
PROVIDERS: Emergency Medicine; Internal Medicine Cardiovascular Disease; Internal Medicine Interventional Cardiology; Physician Assistant Medical; ADMITTING PHYSICIAN Hospitalist; ATTENDING PHYSICIAN Internal Medicine; EMERGENCY PHYSICIAN Student in an Organized Health Care Education/Training Program; OTHER PHYSICIAN Nuclear Medicine Nuclear Cardiology
PROC: B2111ZZ Fluoroscopy of Multiple Coronary Arteries using Low Osmolar Contrast (ICD-10-PCS; 2025-01-17)
PROC: 4A023N7 Measurement of Cardiac Sampling and Pressure, Left Heart, Percutaneous Approach (ICD-10-PCS; 2025-01-17)
PROC: B2151ZZ Fluoroscopy of Left Heart using Low Osmolar Contrast (ICD-10-PCS; 2025-01-17)
DX: I48.3 Typical atrial flutter (principal); I50.23 Acute on chronic systolic (congestive) heart failure; D68.59 Other primary thrombophilia; I25.10 Atherosclerotic heart disease of native coronary artery without angina pectoris; J44.89 Other specified chronic obstructive pulmonary disease; G62.9 Polyneuropathy, unspecified; M06.9 Rheumatoid arthritis, unspecified; K21.9 Gastro-esophageal reflux disease without esophagitis; N40.0 Benign prostatic hyperplasia without lower urinary tract symptoms; M19.90 Unspecified osteoarthritis, unspecified site; Z87.891 Personal history of nicotine dependence; Z88.0 Allergy status to penicillin; Z87.892 Personal history of anaphylaxis; Z79.01 Long term (current) use of anticoagulants; I42.0 Dilated cardiomyopathy; I48.91 Unspecified atrial fibrillation; Z79.899 Other long term (current) drug therapy; Z82.49 Family history of ischemic heart disease and other diseases of the circulatory system
CPT/HCPCS: 71046; 80048; 80053; 83735; 83880; 84484; 85025; 85027; 85730; 87070; 93005; 93308; 93458; 96374; 99152; 99153; 99285; C1894; Q9967

== ENCOUNTER 2025-02-12 09:11 | Emergency (ER) | payer OTHER, SELFPAY ==
[2025-02-12 09:17] VITALS: BP 131/87; BMI 29.1
--- NOTE | 2025-02-12 09:40 | ED.GENMED ---
History of Present Illness
General
Chief Complaint: Chest Pain
Source: patient, records and previous hospital records
Exam Limitations: none
Time Seen by Provider: 02/12/25 09:19
Nursing documentation reviewed up to this point in time: agreed with
History of Present Illness
History of Present Illness:
59-year-old male from [facility] originally from [place] presents with chest pain onset a week ago he is sweaty all week, he is in A-fib with a rapid response here prior records reviewed he was admitted a month or so ago with similar
complaints converted on Cardizem, underwent a cath nonobstructive disease had a low EF no stents were placed, tells me has been compliant with his meds though did not get any meds yet today, no fevers has had cough no leg edema
Past History
Past History
ED Past Medical History: Arrthythmia, CAD, CHF and HTN
Social History
Tobacco: Former smoker
Alcohol: None
Drug: None
Living: skilled nursing
Employment: Not employed
Phy Exam
Physical Exam
Physical Exam:
aax3
ncat
cta
regular
soft nontender
non focal
cooperativ
Scores
Heart Score for Chest Pain Patients
STEMI patient?: No
History: Slightly or Non-Suspicious
ECG: Nonspecific Repolarization
Age: >45 - <65 years
Risk Factors: 1 or 2 Risk Factors
Troponin: </= Normal Limit
Heart Score for Chest Pain Patients: 3
Heart Score Risk: 2.5% MACE over next 6 weeks
Course
Orders/Labs/Results
Orders:
Orders
02/12/25
Electrocardiogram (*1) Stat
Reason for Study: Chest Pain
Comment: DONE
02/12/25 09:18
EKG with chest pain [ECG as needed] As Directed
ECG as needed for:: Chest Pain
02/12/25 09:26
IV Insert/Care/Rem.- Treatment PRN
CR Chest Portable - 1 View Urgent
Comment:
Reason For Exam: cp
Reason Study Needs to be Portable: Patient Unstable
02/12/25 09:27
Diltiazem HCl [Cardizem] 10 mg IV NOW STA
02/12/25 09:29
Complete Blood Count/With Diff Urgent
Comprehensive Metabolic Panel Urgent
Magnesium Urgent
NT-proBNP Urgent
TSH Urgent
Troponin I Urgent
02/12/25 09:30
Diltiazem 125 mg/125 ml Nss [Cardizem] 125 mg in 125 ml IV PER PROTOCOL
Initial dose in mg/hr, then titrate:: 5
Titrate to keep:: Heart rate 80-100 bpm
Titrate by mg/hr:: 5 mg/hr
Frequency of titrations (minutes):: 15
Maximum dose in mg/hr:: 15
02/12/25 10:32
ASA Classification Routine
Propofol [Diprivan] 100 mg IV NOW STA
02/12/25 10:56
Electrocardiogram (*1) Stat
Reason for Study: Atrial Fibrillation
Electrocardiogram (*1) Urgent (Cancelled)
Electrocardiogram (*1) Urgent (Cancelled)
Electrocardiogram (*1) Urgent
CARDIOLOGY CONSULT Routine
Consulting Provider: Everton Mcdermott
Was physician already notified: Yes
EKG- Treatment ONCE
Abnormal Lab Results
02/12/25
09:29
RBC 4.61 L 10^6/uL
(4.70-6.10)
MCH 31.5 H pg
(27.0-31.0)
MPV 10.9 H fL
(7.4-10.4)
BUN 25 H mg/dl
(9-20)
Glucose 120 H mg/dl
(70-99)
02/12/25 09:29
02/12/25 09:29
Vital Signs
Initial and Last Documented VS:
Initial Vital Signs
Pulse Resp BP Pulse Ox
136 14 131/87 95
02/12/25 09:17 02/12/25 09:17 02/12/25 09:17 02/12/25 09:17
Last Documented Vital Signs
Pulse Resp BP Pulse Ox
77 14 105/75 95
02/12/25 11:45 02/12/25 11:45 02/12/25 11:00 02/12/25 11:45
Procedures
Moderate Sedation
ASA Risk Score: Class II
Chart and allergies reviewed: Yes
Consent for anesthesia obtained: Yes
Time out completed (validating right patient & procedure): Yes
Moderate Sedation Start Time(when first medication is given): 10:38
History of difficult intubation: No
Airway free of obstruction: Yes
Patient has a gag reflex: Yes
Patient is able to open mouth: Yes
Patient has no dentures: Yes
Patient has no loose teeth: Yes
Medication administered by Provider during Moderate Sedation: IV Propofol (mg)
Total dose administered: 80
Time drug administered: 10:38
Moderate Sedation Procedure End Time: 10:48
Cardioversion
Indication:: Afib
Performed by:: mindi
Synchronized?: Yes
Energy Used: 200 joules
Number of attempts: 1
Successful?: Yes
ASA Risk Score: Class II
Any reaction or bad outcome to prior sedation/anesthesia?: No history of a reaction
Sedation level to be attained: moderate
Chart and allergies reviewed: Yes
Patient reassessed prior to sedation: Yes
Time out completed at (validating right patient & procedure): 10:38
History of difficult intubation: No
Airway free of obstruction: Yes
Patient has a gag reflex: Yes
Patient is able to open mouth: Yes
Patient has no dentures: Yes
Patient has no loose teeth: Yes
Medication administered by Provider during Moderate Sedation: IV Propofol (mg)
Total dose administered: 80
Time drug administered: 10:38
Start Time: 10:38
Stop Time: 10:48
*Radiology
Radiology exam reviewed: radiology read reviewed
*Pulse Oximetry
SaO2: 95
Oxygen Mode of Delivery: Room air
Patient hypoxic: no
*EKG
Interpreted by ED Provider?: Yes
Interpretation: abnormal
Comparison EKG: changes noted
Heart Rate: 140
Rate: tachycardiac
Rhythm: atrial flutter
Ischemia: non-specific ST changes
*Undercover Operator Interpretation
Rate: tachycardiac
Interpretation: abnormal
Heart Rate: 140
Rhythm: atrial flutter
*Critical Care Note
Total Time (30-74mins, 75-104mins- exclusive of procedures): 31
Data Reviewed
Review of Other/Old Records Reveals: Labs, Records, Progress Notes and Discharge Summary
Source: patient and records
Update Note
Update Note:
10:30 AM update labs noted, consult requested cardiology
I will will proceed with DC cardioversion patient has been compliant with his anticoagulation
Patient was successfully cardioverted several months ago
Consent signed
ED Attending Note
-
Portions of this chart may have been created with voice recognition software.� Occasional wrong word or��sound alike� substitutions may have occurred due to the inherent limitations of voice recognition software.
Discharge Plan
Departure
Patient with high blood pressure during this ER visit?: No
Condition: Good
Discharge Problem:
Atrial fibrillation, rapid, Atrial flutter
Instructions: MODERATE SEDATION ADULT, Chest Pain DCA Follow Up
Prescriptions:
New
amiodarone 200 mg tablet
200 mg PO BID Qty: 60 1RF
Continued
acetaminophen 500 mg Tablet
1,000 mg PO BID
tamsulosin 0.4 mg Capsule
0.8 mg PO HS
amitriptyline 100 mg Tablet
100 mg PO HS
Eliquis 5 mg Tablet
5 mg PO BID Qty: 60 0RF
lisinopril 2.5 mg tablet
2.5 mg PO DAILY 30 Days Qty: 30 0RF
therapeutic multivitamin Tablet
1 tab PO DAILY
finasteride 5 mg Tablet
5 mg PO HS
omeprazole 20 mg capsule,delayed release(DR/EC)
20 mg PO BID
atorvastatin 40 mg Tablet
40 mg PO HS Qty: 30 0RF
dapagliflozin propanediol 10 mg Tablet
10 mg PO DAILY Qty: 30 0RF
Discontinued
aspirin 81 mg Tablet,Chewable
81 mg PO DAILY Qty: 0 0RF
amiodarone 200 mg tablet
200 mg PO DAILY
Referrals:
[facility],Fac[facility] [Family Provider, General]
Everton Mcdermott MD [Active, Cardiology]
Referral Note: Patient has an appt to have an echocardiogram (ultrasound of the heart) 03/26/2025 at 3 PM in the cardiac services department at [facility]. You are then scheduled to see Dr. Mcdermott's physician faculty research assistant, Kisha,
at the [facility] office on 03/26/25 at 4 PM. Please call [phone] if you need to reschedule.
Activity Restrictions/Additional Instructions:
- Stop taking aspirin
- Continue taking Eliquis 5 mg twice daily
- Increase amiodarone to 200 mg twice daily for the next 2 months and then decrease to 200 mg once daily thereafter
- Toprol-XL (metoprolol succinate) has been stopped due to bradycardia
- Cardiology recommends ongoing attempts at rhythm control to help improve cardiomyopathy.
Interventions
Interventions:
*Risk Screen - Suicide Last Done: 02/12/25 09:17
*General Assessment Last Done: 02/12/25 09:17
*Neglect/Abuse Screening Last Done: 02/12/25 09:17
*ED- Fall Risk Assessment Last Done: 02/12/25 09:17
*ED COVID-19 Vaccine History Last Done: 02/12/25 09:17
ED- Cardiac Assessment Last Done: 02/12/25 09:17
Discharge Date and Time
Print Language: CITIZEN OF [place]
[2025-02-12] MEDS: CARDIZEM 10 MG IV (09:41)
[2025-02-12 09:56] LABS: ALT (SGPT) 46 U/L (0-50); AST (SGOT) 32 U/L (17-59); Albumin 4.8 g/dl (3.5-5.0); Alkaline Phosphatase 48 U/L (38-126); Blood Urea Nitrogen 25 mg/dl (9-20); Calcium 9.1 mg/dl (8.4-10.2); Carbon Dioxide 27 mmol/L (22-30); Chloride 104 mmol/L (98-107); Estimated Creatinine Clearance 79 ml/min; Glucose 120 mg/dl (70-99); Magnesium 2.2 mg/dl (1.6-2.3); Potassium 4.2 mmol/L (3.5-5.1); Sodium 138 mmol/L (135-145); Total Protein 7.6 g/dl (6.3-8.2); eGFR > 60.00
[2025-02-12] MEDS: CARDIZEM 125 IV (09:58)
[2025-02-12 10:00] VITALS: BP 99/82
[2025-02-12 10:06] LABS: Troponin I < 0.012 ng/ml
[2025-02-12 10:35] LABS: TSH 3.59 uIU/ml (0.47-4.68)
[2025-02-12] MEDS: DIPRIVAN 100 MG IV (10:36)
[2025-02-12 11:00] VITALS: BP 102/76; BP 105/75
[2025-02-12 12:00] LABS: Hematocrit 42.2 % (39.0-52.0); Hemoglobin 14.5 g/dL (13.0-18.0); Mean Corp Hgb Conc. 34.4 g/dL (33.0-37.0); Mean Corpuscular Volume 91.5 fL (80.0-94.0); Nucleated Red Blood Cells % 0 % (-); Platelet Count 198 10^3/uL (130-400); Red Cell Dist. Width 13.1 % (11.5-14.5)
--- NOTE | 2025-02-12 12:34 | EDRN ---
used 80 mg of Diprivan. The rest of raissa 200 mg bottle was placed into a sharps container with another nurse.
Order was for 10 mg of Diltiazem. The rest of the 25 mg bottle was placed into a sharps container with another nurse.
--- NOTE | 2025-02-12 15:10 | CON.CAR ---
Addendum entered and electronically signed by Everton Mcdermott MD 02/12/25 16:57:
59-year-old who presents now with chest pain and 1 week of fluttering in his chest and found to have atrial flutter with 2-1 conduction. Initially admitted with atrial flutter and tachycardia mediated cardiomyopathy, EF 15 to 20% by echo in October
2024. He underwent YANG and cardioversion, started on Eliquis. Readmitted January 15 with EF 31% and recurrent atrial flutter. Cardiac catheterization showed 50-60% mid right coronary artery stenosis. He was started on amiodarone and discharged in
sinus rhythm. Now with recurrent chest pain and atrial flutter.
PMH: Rheumatoid arthritis, COPD/asthma, peripheral neuropathy, hypercoagulable state, CAD with 50 to 60% RCA stenosis as above
Rest of history as below per Kisha Trinidad
105/75, pulse 77, respiratory rate 14, saturation is 95%, inmate at [facility]. 2 guards present. Offers no complaints, following cardioversion, head neck exam unremarkable, lungs clear regular rate and rhythm, abdomen obese extremities without
clubbing cyanosis or edema pulses palpable.
Chest x-ray: No active disease
ECG atrial flutter with 2 1 conduction
Repeat EKG: Sinus rhythm
Labs reviewed, troponin undetectable, proBNP 342
Impression:
Recurrent atrial flutter on low-dose amiodarone, now back in sinus rhythm following cardioversion
Tachycardia mediated cardiomyopathy, EF improved from October to January 2025.
Other diagnoses as below per Kisha Trinidad. Reviewed in detail and agree, unless otherwise specified
Plan:
At present he is back in sinus rhythm and appears hemodynamically stable. Okay for discharge from the emergency department.
Amiodarone was recently restarted at 200 mg daily after being stopped at the present related to bradycardia. At follow-up to our office January 29 when it was discovered that amiodarone had been stopped, metoprolol was stopped and amiodarone 200 mg
daily reinitiated.
With discharge from ER on amiodarone 200 mg twice daily. No metoprolol.
We will arrange for cardiac follow-up and a repeat echo in approximately 2 months.
Original Note:
Consultation
Consultation Request
Date/Time Consultation Requested: 02/12/25
Date/Time Consultation Performed: 02/12/25
Requesting Provider: Dr. Kendall in the ER
Performing Provider: Dr. MAXIMILIANO Mcdermott
Reason for Consultation: Recurrent atrial flutter, CM
Medical History
-
History of Present Illness:
Patient came to the ER today with recurrent atrial flutter and cardiology has been consulted to see patient in the ER. Patient was admitted from 10/19/24 until 10/23/24 with newly diagnosed atrial flutter. Patient denied any h/o arrhythmia. Patient was
diuresed and eventually had YANG/CV 10/22/24. Patient was successfully CV'd to SR, but YANG showed EF down at 15-20%. Patient was d/c'd on Eliquis and with lisinopril and Toprol XL. Patient was readmitted 01/15/25 until 01/19/25 with recurrent atrial
flutter and acute HFrEF. During that admission patient had repeat echo that showed EF improved to 31%. Patient had cardiac cath that showed nonobstructive CAD 01/17/2025. Patient being managed as tachycardia mediated CM and he was started on
amiodarone with resultant spontaneous conversion to SR. Patient was discharged back to the [facility] on amiodarone 200 mg BID for 1 month then reduce to 200 mg once daily plus GDMT with Toprol-XL and lisinopril. When patient was seen in the office for
hospital follow-up on 01/29/2025 he was no longer taking amiodarone and Toprol XL dose had been reduced. We were not permitted to make the patient a follow-up appointment or an echo appointment due to him being a prisoner, but we did ask that his
amiodarone be restarted. Patient returns to the ER now and says that he was taken in for routine ECG at the alf yesterday, he does not recall having any complaints and he thinks it was previously scheduled as a follow-up to our office visit 2
weeks ago. Patient was called back down to the medical unit today and told that his ECG showed atrial flutter and that he was being sent to the ER. Patient denies any SOB, but says he has chest pressure. He had a similar chest pressure with
recurrence of atrial flutter admission earlier this month. Troponin undetectable. No missed doses of Eliquis and patient had successful CV in the ER today.
Presented to the ER with recurrent atrial flutter 02/12/2025
s/p successful CV with mormon of SR from atrial flutter in the ER 02/12/2025
Recent admission with recurrent atrial flutter and acute HF 01/15/25 until 01/19/2025
Recent admission for newly diagnosed CM, CHF and atrial flutter 10/19/24 until 10/23/24
CM EF 15-20% by YANG 10/22/24, 31% by TTE 01/16/2025
Possibly tachycardia mediated CM
Recurrent typical atrial flutter
s/p successful YANG/CV 10/22/24
spontaneous conversion to SR 01/17/2025
s/p successful CVA in the ER 02/12/2025
Chronic Eliquis OAC
Rheumatoid arthritis
History of COPD and/or asthma
Suboptimal social situation, extradited from [place] to [place]
Peripheral neuropathy
Hypercoagulable state
Moderate coronary disease involving the mid right coronary artery with smooth 50-60% stenosis by cath 01/17/25
Past Medical History
Past Medical History: Other (in HPI)
Past Surgical History: Appendectomy and Other (Hemorrhoidectomy)
Social History
Tobacco: Former Smoker (Quit age 18)
Alcohol: None
Drug: None
Personal:
Living: Alone
Family History
Family History: Early CAD (father with CAD)
Allergies / Home Medications
Allergy/AdvReac Type Severity Reaction Status Date / Time
Penicillins Allergy Anaphylaxis Verified 01/15/25 18:41
tomato Allergy Anaphylaxis Verified 01/15/25 12:41
�Medication �Instructions �Recorded �Confirmed �Type
acetaminophen 500 mg tablet 1,000 mg PO BID Pain 10/19/24 02/12/25 History
amitriptyline 100 mg tablet 100 mg PO HS NEUROPATHIC PAIN 10/19/24 02/12/25 History
tamsulosin 0.4 mg capsule 0.8 mg PO HS BPH 10/19/24 02/12/25 History
apixaban 5 mg tablet (Eliquis) 5 mg PO BID #60 tabs 10/23/24 02/12/25 Rx
lisinopril 2.5 mg tablet 2.5 mg PO DAILY Heart Failure 30 10/23/24 02/12/25 Rx
days #30 tabs
finasteride 5 mg tablet 5 mg PO HS Urinary Issue 01/15/25 02/12/25 History
omeprazole 20 mg capsule,delayed 20 mg PO BID Gastrointestinal issue 01/15/25 02/12/25 History
release
therapeutic multivitamin 1 tab PO DAILY Supplement 01/15/25 02/12/25 History
aspirin 81 mg chewable tablet 81 mg PO DAILY #0 tabs 01/19/25 02/12/25 Rx
atorvastatin 40 mg tablet 40 mg PO HS High cholesterol #30 01/19/25 02/12/25 Rx
tabs
dapagliflozin propanediol 10 mg 10 mg PO DAILY Heart Failure #30 01/19/25 02/12/25 Rx
tablet tabs
amiodarone 200 mg tablet 200 mg PO DAILY Arrhythmia 02/12/25 02/12/25 History
Review of Systems
-
History Source: Patient
All other systems: Negative unless noted
Physical Exam
Vital Signs
Pulse Resp BP Pulse Ox
77 14 105/75 95
02/12/25 11:45 02/12/25 11:45 02/12/25 11:00 02/12/25 11:45
GEN: NAD. AAOx3
HEENT: EOMI, MMM
LUNGS: RA. No wheeze or rales
CV: SR on tele. Reg, S1/S2, no murmur
ABD: soft, BS+, NT, ND
EXT: Trace B/L LE edema.
NEURO: Gross non-focal
SKIN: No rash
Lab Results
02/12/25 09:29
02/12/25 09:29
Troponin I < 0.012 ng/ml 02/12/25 09:29
Feg-[id number] Pept 342 pg/ml 02/12/25 09:29
Impression / Plan
-
PCP: None locally
Card: None
Impression:
Presented to the ER with recurrent atrial flutter 02/12/2025
s/p successful CV with mormon of SR from atrial flutter in the ER 02/12/2025
Recent admission with recurrent atrial flutter and acute HF 01/15/25 until 01/19/2025
Recent admission for newly diagnosed CM, CHF and atrial flutter 10/19/24 until 10/23/24
CM EF 15-20% by YANG 10/22/24, 31% by TTE 01/16/2025
Possibly tachycardia mediated CM
Recurrent typical atrial flutter
s/p successful YANG/CV 10/22/24
spontaneous conversion to SR 01/17/2025
s/p successful CVA in the ER 02/12/2025
Chronic Eliquis OAC
Rheumatoid arthritis
History of COPD and/or asthma
Suboptimal social situation, extradited from [place] to [place]
Peripheral neuropathy
Hypercoagulable state
Moderate coronary disease involving the mid right coronary artery with smooth 50-60% stenosis by cath 01/17/25
YANG 10/22/24: EF 15-20%, reduced RV systolic function, no NICK thrombus, no significant valve disease
Echo 01/16/2025: EF 31%, normal RV size with reduced RV systolic function, mild MR
Plan:
-Patient came to the ER today with recurrent atrial flutter and cardiology has been consulted to see patient in the ER. Patient was admitted from 10/19/24 until 10/23/24 with newly diagnosed atrial flutter. Patient denied any h/o arrhythmia. Patient
was diuresed and eventually had YANG/CV 10/22/24. Patient was successfully CV'd to SR, but YANG showed EF down at 15-20%. Patient was d/c'd on Eliquis and with lisinopril and Toprol XL. Patient was readmitted 01/15/25 until 01/19/25 with recurrent atrial
flutter and acute HFrEF. During that admission patient had repeat echo that showed EF improved to 31%. Patient had cardiac cath that showed nonobstructive CAD 01/17/2025. Patient being managed as tachycardia mediated CM and he was started on
amiodarone with resultant spontaneous conversion to SR. Patient was discharged back to the [facility] on amiodarone 200 mg BID for 1 month then reduce to 200 mg once daily plus GDMT with Toprol-XL and lisinopril. When patient was seen in the office for
hospital follow-up on 01/29/2025 he was no longer taking amiodarone and Toprol XL dose had been reduced. We were not permitted to make the patient a follow-up appointment or an echo appointment due to him being a prisoner, but we did ask that his
amiodarone be restarted. Patient returns to the ER now and says that he was taken in for routine ECG at the alf yesterday, he does not recall having any complaints and he thinks it was previously scheduled as a follow-up to our office visit 2
weeks ago. Patient was called back down to the medical unit today and told that his ECG showed atrial flutter and that he was being sent to the ER. Patient denies any SOB, but says he has chest pressure. He had a similar chest pressure with
recurrence of atrial flutter admission earlier this month. Troponin undetectable. No missed doses of Eliquis and patient had successful CV in the ER today.
-ECG reviewed by me on admission shows atrial flutter with 2-1 conduction at 136 bpm. ECG following CV reviewed by me shows SR with QTc 447 ms.
-Recommend amiodarone 200 mg BID for the next 2 months then reduce to 200 mg once daily thereafter. The rationale for ongoing amiodarone therapy was added to his discharge medication list as a form of communication with the [facility] staff.
-We recommended that outpatient dose of Toprol-XL be stopped in favor of antiarrhythmic drug therapy
-Lisinopril 2.5 mg daily can be continued
-Outpatient dose of Eliquis 5 mg BID should also be continued.
-Continue with usual dose of Farxiga 10 mg daily
-Chest pressure appears to be his symptom with atrial arrhythmia. Patient had nonobstructive CAD by cardiac cath 01/17/2025 and troponin undetectable in the ER.
-proBNP is the lowest he has ever had at 342. Patient is not chronically on a diuretic
-Cardiology follow-up and ECG scheduled for 03/26/2025, this appointment was not shared with the patient, but was written on the discharge instructions which were then handed directly to the guards that are with the patient.
== END 2025-02-12 16:05 ==
LOC: EMR 09:11
PROVIDERS: CONSULT PHYSICIAN Internal Medicine Cardiovascular Disease; EMERGENCY PHYSICIAN Emergency Medicine
DX: I48.3 Typical atrial flutter (principal); I48.91 Unspecified atrial fibrillation; D68.59 Other primary thrombophilia; I11.0 Hypertensive heart disease with heart failure; I50.9 Heart failure, unspecified; I42.9 Cardiomyopathy, unspecified; G62.9 Polyneuropathy, unspecified; I25.10 Atherosclerotic heart disease of native coronary artery without angina pectoris; Z79.899 Other long term (current) drug therapy; J44.89 Other specified chronic obstructive pulmonary disease; M06.9 Rheumatoid arthritis, unspecified; Z86.73 Personal history of transient ischemic attack (TIA), and cerebral infarction without residual deficits; Z87.891 Personal history of nicotine dependence
CPT/HCPCS: 92960; 99152; 96374; 99291; 71045; 80053; 83735; 83880; 84443; 84484; 85025; 93005

== ENCOUNTER 2025-02-28 20:26 | Inpatient (IN) | payer MEDICAID, SELFPAY ==
[2025-02-28] VITALS (21 sets, daily range): BP systolic 85–135; BP diastolic 63–115; BMI 27.1
--- NOTE | 2025-02-28 17:58 | ED.GENMED ---
History of Present Illness
General
Chief Complaint: Heart Rate Problem
Source: patient and records
Exam Limitations: none
Time Seen by Provider: 02/28/25 17:44
Nursing documentation reviewed up to this point in time: agreed with
History of Present Illness
History of Present Illness:
59-year-old male with past medical history of cardiomyopathy with EF of 30%, atrial fibrillation/flutter on Eliquis, COPD presents to the ER from [facility] for evaluation of palpitations and chest tightness. Patient reports
onset of symptoms a few days ago and they have been constant since that time. He reports mild tightness and racing heart/palpitations. He says he has mild associated dizziness particular with positional changes. EKG in [facility] showed
tachycardia and EMS was called to bring him to the hospital. His prehospital EKG reviewed by me appears to show atrial flutter with 2:1 conduction. He denies any other acute complaints.
He has had multiple visits/admissions for this issue in the recent past. He was admitted in October and rapid atrial fibrillation and cardioverted in the hospital. He then represented in early January with atrial flutter and was admitted ultimately
converted to sinus rhythm while treated with amiodarone. He did have cardiac cath 01/[address] Alva that showed moderate coronary disease in the right coronary artery with 50 to 60% stenosis, dilated cardiomyopathy with EF estimated 30%. He
presented to the ER 02/12 and was cardioverted in the ER, cardiology consulted and he was discharged on amiodarone 200 mg twice daily.. He reports compliance with medications including both amiodarone and Eliquis.
Past History
Past History
ED Past Medical History: Arrthythmia, CAD, CHF and HTN
Social History
Tobacco: Former smoker
Alcohol: None
Drug: None
Living: [facility]
Employment: Not employed
Review of Systems
Review of Systems
All Other Systems: ROS reviewed and negative except as documented in HPI and ROS
Constitutional: Denies fever
Respiratory: Denies trouble breathing
Cardiac: Reports chest pain and palpitations; Denies syncope
ABD/GI: Denies abdominal pain or nausea
Musculoskeletal: Denies edema, neck pain or back pain
Neurological: Reports dizzy; Denies headache
Phy Exam
Physical Exam
Physical Exam:
General: Awake, alert, oriented x3; no acute distress
Head: Normocephalic, atraumatic
Eyes: Conjunctiva normal
Throat: Airway intact, handling secretions
Neck: Trachea midline, no JVD noted
Lungs: Clear to auscultation bilaterally, no wheezing, rales, rhonchi
Heart: Tachycardia with ostensibly regular rhythm, no murmurs, gallops, or rubs
Abd: Soft, non distended, nontender
Neuro: Grossly intact
Extremities: No edema in extremities, equal pulses in all extremities
Scores
Heart Failure Risk
Heart Failure Risk Score: Not Applicable
Heart Score for Chest Pain Patients
STEMI patient?: Not applicable
Withdrawal Assessment of Alcohol
Withdrawal Assessment Completed?: Not applicable
Course
Orders/Labs/Results
Orders:
Orders
02/28/25 17:44
EKG [Electrocardiogram (*1)] Urgent
Reason for Study: Chest Pain
Complete Blood Count/With Diff Urgent
Comprehensive Metabolic Panel Urgent
02/28/25 17:48
EKG- Treatment ONCE
PTT Urgent
Prothrombin Time Urgent
02/28/25 17:52
Diltiazem HCl [Cardizem] 10 mg IV NOW STA
Vital Signs
Initial and Last Documented VS:
Initial Vital Signs
Pulse Resp BP Pulse Ox
132 18 121/85 96
02/28/25 17:51 02/28/25 17:51 02/28/25 17:51 02/28/25 17:51
Last Documented Vital Signs
Pulse Resp BP Pulse Ox
132 18 121/85 96
02/28/25 17:51 02/28/25 17:51 02/28/25 17:51 02/28/25 17:51
MDM/Problems Addressed
Differential Diagnosis Includes:
Atrial fibrillation/flutter, sinus tachycardia
MDM/Problems Addressed:
59-year-old male with history as noted presents to the ER for chest tightness and palpitations�prehospital EKG concerning for atrial flutter. On arrival to us he is tachycardic but normotensive, no hypoxia or tachypnea, no fever. His EKG on
arrival shows narrow complex regular tachycardia appears consistent with atrial flutter with 2:[address] an IV check labs including a CBC and CMP. Will opt for rate control�consider ED cardioversion but with multiple recent
visits and cardioversions I think patient would benefit from admission on rate control and cardiology consultation for adjustment of his medications more urgently. Discussed with cardiology they are in agreement.
*Pulse Oximetry
SaO2: 96
Oxygen Mode of Delivery: Room air
Patient hypoxic: no (96%)
*EKG
Interpreted by ED Provider?: Yes
Heart Rate: 133
Rate: tachycardiac
Rhythm: atrial flutter
[place]: normal axis
Interval: normal interval
QRS Pattern: normal QRS
Ischemia: non-specific ST changes
*Critical Care Note
Total Time (30-74mins, 75-104mins- exclusive of procedures): Not Applicable
Data Reviewed
Review of Other/Old Records Reveals: Labs, Records and Operative Reports
Source: patient and records
Patient Management
Discussion with other providers: Hospitalist (Discussed with hospitalist) and Aviation Project Engineer (Discussed with cardiology)
Escalation/DeEscalation of care consider admission/obs:
Admission indicated
ED Attending Note
-
Portions of this chart may have been created with voice recognition software.� Occasional wrong word or��sound alike� substitutions may have occurred due to the inherent limitations of voice recognition software.
Discharge Plan
Departure
Discharge Problem:
Atrial flutter
Prescriptions:
No Action
acetaminophen 500 mg Tablet
1,000 mg PO BID
tamsulosin 0.4 mg Capsule
0.8 mg PO HS
amitriptyline 100 mg Tablet
100 mg PO HS
Eliquis 5 mg Tablet
5 mg PO BID Qty: 60 0RF
lisinopril 2.5 mg tablet
2.5 mg PO DAILY 30 Days Qty: 30 0RF
therapeutic multivitamin Tablet
1 tab PO DAILY
finasteride 5 mg Tablet
5 mg PO HS
omeprazole 20 mg capsule,delayed release(DR/EC)
20 mg PO BID
atorvastatin 40 mg Tablet
40 mg PO HS Qty: 30 0RF
dapagliflozin propanediol 10 mg Tablet
10 mg PO DAILY Qty: 30 0RF
amiodarone 200 mg tablet
200 mg PO BID Qty: 60 1RF
Referrals:
[facility] [Family Provider, General]
Discharge Date and Time
Print Language: ESTONIAN
--- NOTE | 2025-02-28 18:10 | PHANOTE ---
med rec note- [facility] never had a chance to do patient intake on returning to [facility], patient came with previous admit to [facility]
[2025-02-28 18:11] LABS: Hematocrit 42.4 % (39.0-52.0); Hemoglobin 15.1 g/dL (13.0-18.0); Mean Corp Hgb Conc. 35.6 g/dL (33.0-37.0); Mean Corpuscular Volume 88.0 fL (80.0-94.0); Nucleated Red Blood Cells % 0 % (-); Platelet Count 194 10^3/uL (130-400); Red Cell Dist. Width 12.2 % (11.5-14.5)
[2025-02-28 18:20] LABS: INR 1.18; PT 15.5 Sec (11.4-14.6)
[2025-02-28 18:21] LABS: APTT 29.2 Sec (23.4-35.0)
[2025-02-28] MEDS: CARDIZEM 10 MG IV (18:24)
[2025-02-28 18:27] LABS: ALT (SGPT) 34 U/L (0-50); AST (SGOT) 24 U/L (17-59); Albumin 4.7 g/dl (3.5-5.0); Alkaline Phosphatase 50 U/L (38-126); Blood Urea Nitrogen 28 mg/dl (9-20); Calcium 9.8 mg/dl (8.4-10.2); Carbon Dioxide 24 mmol/L (22-30); Chloride 104 mmol/L (98-107); Glucose 106 mg/dl (70-99); Potassium 4.5 mmol/L (3.5-5.1); Sodium 136 mmol/L (135-145); Total Protein 7.7 g/dl (6.3-8.2); eGFR 57.54
[2025-02-28] MEDS: CARDIZEM 125 IV (18:30)
--- NOTE | 2025-02-28 19:50 | HPS.HSE ---
Family Physician
-
Family Physician: Facility [facility]
Chief Complaint
-
Tachycardia
History of Present Illness
This is a 59-year-old male with past medical history of nonischemic cardiomyopathy with a EF of around 30% by echocardiogram, nonobstructive CAD, typical atrial flutter status post cardioversion, on chronic anticoagulation who presents to the
Emergency Department with palpitations and chest tightness.
Patient reports that for the last 3 to 4 days has been having some chest tightness, palpitations, dizziness, lightheadedness. He has no falls and denies any syncopal episode. He reports that he was recently started having a cough. Denies any
fevers or chills. Denies any lower extremity swelling. He reports nausea but no vomiting. He denies any diaphoresis. He reports compliance with his amiodarone medication.
Patient's cardiac history notable for admission in October and rapid atrial fibrillation and cardioverted in the hospital. He then represented in early January with atrial flutter and was admitted ultimately converted to sinus rhythm while treated with
amiodarone. He did have cardiac cath 01/[address] Alva that showed moderate coronary disease in the right coronary artery with 50 to 60% stenosis, dilated cardiomyopathy with EF estimated 30%. He presented to the ER 02/12 and was cardioverted in
the ER, cardiology consulted and he was discharged on amiodarone 200 mg twice daily.. He reports compliance with medications including both amiodarone and Eliquis.
The emergency department he was afebrile, blood pressure was 1 110/70 with a pulse rate of 121 and was satting 96% on room air. ECG shows atrial flutter at a rate of 133. CBC was unremarkable, electrolytes were within the normal range, BUN and
creatinine were 28 and 1.4 with a glucose of 106.
Medical History
Past Medical History
Past Medical History: Reports Other (atrial flutter on Eliquis, arthritis, peripheral neuropathy, GERD, COPD)
Past Surgical History: Reports None
Social History
Tobacco: Non-smoker
Alcohol: None
Drug: None
Family History
Family History: Not pertinent
Allergies / Home Medications
Allergies reflects when Allergies were last updated in [employer].
Home Medications with original date entered in [employer]
Allergy/Medication List:
Allergies
Allergy/AdvReac Type Severity Reaction Status Date / Time
Penicillins Allergy Severe Anaphylaxis Verified 01/15/25 12:41
tomato Allergy Anaphylaxis Verified 01/15/25 12:41
Home Medications
acetaminophen 500 mg tablet 1,000 mg PO BID Pain 10/19/24
amitriptyline 100 mg tablet 100 mg PO HS NEUROPATHIC PAIN 10/19/24
tamsulosin 0.4 mg capsule 0.8 mg PO HS BPH 10/19/24
apixaban 5 mg tablet (Eliquis) 5 mg PO BID #60 tabs 10/23/24
lisinopril 2.5 mg tablet 2.5 mg PO DAILY Heart Failure 30 days #30 tabs 10/23/24
metoprolol succinate 25 mg tablet,extended release 24 hr (Toprol XL) 25 mg PO BID 30 days #60 tabs 10/23/24
atorvastatin 10 mg tablet 10 mg PO HS 01/15/25
finasteride 5 mg tablet 5 mg PO HS 01/15/25
omeprazole 20 mg capsule,delayed release 20 mg PO BID Gastrointestinal issue 01/15/25
therapeutic multivitamin 1 tab PO DAILY 01/15/25
Review of Systems
-
History Source: Patient
A 12 point ROS was completed and negative except as noted: Yes
Constitutional: Reports No Symptoms
EENT: Reports No Symptoms
Respiratory: Reports No Symptoms
Cardiac: Reports See HPI
Abdomen/GI: Reports No Symptoms
: Reports No Symptoms
Musculoskeletal: Reports No Symptoms
Skin: Reports No Symptoms
Neurological: Reports No Symptoms
Endocrine: Reports No Symptoms
Hematologic/Lymphatic: Reports No Symptoms
Psych: Reports No Symptoms
Physical Exam
Vital Signs
Vital Signs
Pulse Resp BP Pulse Ox
121 25 101/72 96
02/28/25 19:30 02/28/25 19:30 02/28/25 19:30 02/28/25 18:00
Physical Exam
General: Well Developed, Well Nourished and No Apparent Distress
HEENT: NormoCephalic, Moist mucous membranes and Atraumatic
Respiratory: Clear
Cardiac: S1/S2, Regular Rhythm and Peripheral Edema; No Murmur or Rub
GI: Soft, Non Tender, Non Distended and Normal Bowel Sounds; No Organomegaly
Rectal: Deferred by Provider
Musculoskeletal: No Clubbing, No Cyanosis and No Edema
Skin: No Rash
Neuro: Nonfocal/grossly intact
Laboratory Results
-
02/28/25 18:03
02/28/25 18:03
Laboratory Results
PT 15.5 Sec (11.4-14.6) H 02/28/25 18:03
INR 1.18 02/28/25 18:03
APTT 29.2 Sec (23.4-35.0) 02/28/25 18:03
Total Bilirubin 0.5 mg/dl (0.2-1.3) 02/28/25 18:03
AST 24 U/L (17-59) 02/28/25 18:03
ALT 34 U/L (0-50) 02/28/25 18:03
Alkaline Phosphatase 50 U/L (38-126) 02/28/25 18:03
Troponin I Cancelled 02/28/25 17:44
Data Reviewed
-
Medical Tests (Nuc Med, Echo, EKG etc): Image Personally Visualized and interpreted
Lab Data: Labs Reviewed by me
Old Records: Reviewed
Impression/Plan
-
IMPRESSION:
59 y.o with NICM EF 15 - 20%, typical atrial flutter s/p CV in the past, on AC with eliqis and rhythm with control with amio presenting to ED with uncontrolled atrial flutter. Hemodynamically stable and no evidence of new ischemia or CHF
exacerbation. Started on diltiazem gtt in ED. Lungs are clear but reports a recent non-productive cough. No lower extremity edema. No JVD. History of AFIB-Flutter and currently in flutter. Unlikely to achieve significant rate changes with
diltiazem gtt. Given a one time dose of metoprolol. Patient continues to complaign of discomfort.
PLAN:
Recurrent typical atrial flutter:
- admit to IVU
- patient chronically exacerbated likely can undergo CV w/o YANG or may need ablation
- NPO after midnight
- cycle cardiac enzymes
- continue diltiazem gtt
- continue amio 200 bid
- trial of IV Lopressor 5 mg, rate improved to 90s with 4-1 conduction. Lopressor 12.5 po q 6 hours with hold parameters
- continue AC with eliquis
- continue GDMT (farxiga/lisinopril) with hold lisinopril parameters while on diltiazem
- cardiology consulted
DVT PPX - on eliquis
Code status - Full code
[2025-02-28] MEDS: LOPRESSOR 5 MG IV (20:05)
[2025-02-28 20:42] LABS: Troponin I < 0.012 ng/ml
[2025-02-28] MEDS: ELIQUIS 5 MG PO (21:30)
[2025-02-28] MEDS: FLOMAX 0.8 MG PO (21:30)
[2025-02-28] MEDS: PROTONIX 40 MG PO (21:30)
[2025-02-28] MEDS: TYLENOL 1000 MG PO (21:31)
[2025-02-28] MEDS: PROSCAR 5 MG PO (21:31)
[2025-02-28] MEDS: PACERONE 200 MG PO (21:31)
[2025-02-28] MEDS: LIPITOR 40 MG PO (21:31)
[2025-02-28] MEDS: ELAVIL 100 MG PO (21:31)
[2025-02-28] MEDS: LOPRESSOR 12.5 MG PO (23:11)
[2025-02-28] MEDS: NSS 500 IV (23:11)
[2025-03-01] VITALS (36 sets, daily range): BP systolic 73–123; BP diastolic 54–82; BMI 27.4
[2025-03-01] MEDS: NSS 500 IV (00:43)
--- NOTE | 2025-03-01 01:22 | PTCARENOTE ---
Received pt from ED with Cardizem gtt infusing at 15 mg/hr. Able to wean down to 5 mg and then off; HR was in the 60s. Rhythm remains in AFlutter. GOOD HUMOR VENDOR ordered 500 ml bolus to be run over an hr. While bolus infusing, pt c/o of chest tightness,
slight dizziness. BP 80/55 MAP 64. Notified GOOD HUMOR VENDOR. EKG ordered and obtained.
--- NOTE | 2025-03-01 02:06 | W.PN.UPDATE ---
Update Note
Progress Note Update
Patient is hypotensive with sbp in 80s-low 90s. Asymptomatic. NSS bolus 500cc ordered. SBP still in 80s and not responding to fluids.
Discussed with the admitting physician, will hold of for pressors as map in 70s, D/c metoprolol, give one dose of midodrine, lactic and echo ordered.
[2025-03-01 05:21] LABS: Hematocrit 38.8 % (39.0-52.0); Hemoglobin 13.5 g/dL (13.0-18.0); Mean Corp Hgb Conc. 34.8 g/dL (33.0-37.0); Mean Corpuscular Volume 91.9 fL (80.0-94.0); Platelet Count 168 10^3/uL (130-400); Red Cell Dist. Width 12.4 % (11.5-14.5)
[2025-03-01 05:42] LABS: Blood Urea Nitrogen 29 mg/dl (9-20); Calcium 8.5 mg/dl (8.4-10.2); Carbon Dioxide 24 mmol/L (22-30); Chloride 106 mmol/L (98-107); Estimated Creatinine Clearance 67 ml/min; Glucose 93 mg/dl (70-99); HDL Cholesterol 37 mg/dl; LDL Cholesterol, Calculated 61 mg/dl; Magnesium 2.3 mg/dl (1.6-2.3); Potassium 4.4 mmol/L (3.5-5.1); Sodium 135 mmol/L (135-145); Very Low Density Lipoprotein 23 mg/dl (0-30); eGFR > 60.00
--- NOTE | 2025-03-01 06:25 | PTCARENOTE ---
SBP down to low 80s. Notified 3RD GRADE READING TEACHER. 1x dose of Midodrine ordered and administered.
--- NOTE | 2025-03-01 07:33 | CON.CAR ---
Addendum entered and electronically signed by Servando Zimmerman MD 03/01/25 10:07:
I saw and examined the patient.
The TIMBER TREATMENT PLANT OPERATOR or PA's note was reviewed and I agree with the note.
Comment: General: Well developed, well nourished in NAD.
Neck: Supple, no JVD, HJR, carotids +2 B/L, no bruits bilaterally.
Heart: Non displaced PMI, Irreg, no murmurs, No S3, S4, no rubs.
Lungs: Clear to auscultation bilaterally, no wheeze, rhonchi, rubs bilaterally,
normal expiratory phase.
Abdomen: Normal bowel sounds, soft, non-tender, non-distended.
Extremities: No clubbing, cyanosis or edema bilaterally.
Neuro: Grossly nonfocal, awake, alert and oriented x3.
Everton has a history of atrial flutter status post cardioversion in October 2024 in January 2025 on chronic Eliquis, tachycardia mediated cardiomyopathy, moderate CAD, rheumatoid arthritis, COPD, neuropathy and hypercoagulable state. He was admitted with
chest pain and palpitations. He was started on Cardizem and cardiology is consulted. He denies any chest pains or palpitations. Of note he was started on amiodarone 2 weeks ago after a cardioversion.
Will plan on cardioversion today. Will increase amiodarone to 400 mg p.o. 3 times daily dosing while hospitalized. Possible discharge 03/02 or 03/03 after loading with 3 times daily amiodarone on telemetry. He is high risk of recurrent A-fib.
Original Note:
Consultation
Consultation Request
Date/Time Consultation Requested: 03/01/2025
Date/Time Consultation Performed: 03/01/2025
Requesting Provider: Dr. Means
Performing Provider: Betty Rogers PA-C for Dr. Zimmerman
Reason for Consultation: Rapid atrial flutter
Medical History
-
History of Present Illness:
HPI: Everton is a 59 year old male with PMH of typical atrial flutter s/p CV 10/22/2024 and most recently 02/12/2025, chronic Eliquis OAC, tachycardia mediated CM, moderate CAD, rheumatoid arthritis, COPD, peripheral neuropathy, and hypercoagulable
state. Presented to [facility] ER from [facility] for evaluation of chest pressure and palpitations. Symptoms started approximately 3 to 4 days prior to arrival. EKG done at [facility] showed rapid atrial flutter and he was brought to ER for evaluation. In ER, EKG
confirmed he was in rapid atrial flutter. He was started on Cardizem drip and heart rates remained elevated, so he was given multiple boluses of IV Lopressor and heart rates improved. He then became hypotensive and required midodrine. Remains in
atrial flutter this AM with improved, but still elevated heart rates on Cardizem drip running @ 5. He remains symptomatic with chest tightness and palpitations, but does have some improvement with improvement in his heart rates. He also continues
on amiodarone 200 mg twice daily. He was restarted on amiodarone during office visit 01/29/2025, but then during ER visit 02/12/2025, dose was increased to twice daily following cardioversion in ER. He has been on uninterrupted anticoagulation with
Eliquis. Otherwise, appears well from a cardiac standpoint.
[facility]:
Typical atrial flutter
s/p successful YANG/CV 10/22/2024
spontaneous conversion to SR 01/17/2025
s/p successful CV in the ER 02/12/2025
Chronic Eliquis OAC
Tachycardia mediated CM, EF 31% by TTE 01/16/2025
Moderate CAD by cath 01/17/2025
Rheumatoid arthritis
COPD/asthma
Suboptimal social situation, extradited from [place] to [place]
Peripheral neuropathy
Hypercoagulable state
Past Medical History
Past Medical History: Other (in HPI)
Past Surgical History: Appendectomy and Other (Hemorrhoidectomy)
Social History
Tobacco: Former Smoker (Quit age 18)
Alcohol: None
Drug: None
Personal:
Living: Nursing Home
Family History
Family History: Early CAD (father with CAD)
Allergies / Home Medications
Allergy/AdvReac Type Severity Reaction Status Date / Time
Penicillins Allergy Anaphylaxis Verified 02/28/25 17:55
tomato Allergy Anaphylaxis Verified 02/28/25 17:55
�Medication �Instructions �Recorded �Confirmed �Type
acetaminophen 500 mg tablet 1,000 mg PO BID mild Pain 10/19/24 02/28/25 History
amitriptyline 100 mg tablet 100 mg PO HS NEUROPATHIC PAIN 10/19/24 02/28/25 History
tamsulosin 0.4 mg capsule 0.8 mg PO HS BPH 10/19/24 02/28/25 History
apixaban 5 mg tablet (Eliquis) 5 mg PO BID #60 tabs 10/23/24 02/28/25 Rx
lisinopril 2.5 mg tablet 2.5 mg PO DAILY Heart Failure 30 10/23/24 02/28/25 Rx
days #30 tabs
finasteride 5 mg tablet 5 mg PO HS Urinary Issue 01/15/25 02/28/25 History
omeprazole 20 mg capsule,delayed 20 mg PO BID Gastrointestinal issue 01/15/25 02/28/25 History
release
therapeutic multivitamin 1 tab PO DAILY Supplement 01/15/25 02/28/25 History
atorvastatin 40 mg tablet 40 mg PO HS High cholesterol #30 01/19/25 02/28/25 Rx
tabs
dapagliflozin propanediol 10 mg 10 mg PO DAILY Heart Failure #30 01/19/25 02/28/25 Rx
tablet tabs
amiodarone 200 mg tablet 200 mg PO BID Arrhythmia #60 tabs 02/12/25 02/28/25 Rx
Review of Systems
-
History Source: Patient
All other systems: Negative unless noted
Physical Exam
Vital Signs
Temp Pulse Resp BP Pulse Ox
97.7 F 89 16 83/58 94
03/01/25 03:35 03/01/25 06:21 03/01/25 05:00 03/01/25 06:21 02/28/25 21:45
Lab Results
03/01/25 05:06
03/01/25 05:06
Troponin I < 0.012 ng/ml 02/28/25 20:05
Uco-B-Cygrdyzgrzq Pept 175 pg/ml 03/01/25 05:06
Physical Exam
General: Well Developed, Well Nourished and No Apparent Distress
HEENT: Normocephalic and Moist Mucous Membranes
Respiratory: Clear and Non Labored Respirations
Cardiac: S1/S2 and Irregular Rhythm
Musculoskeletal: No Clubbing, No Cyanosis and No Edema
Skin: Warm and Dry
Neuro: AO x 3 and Nonfocal/Grossly Intact
Psych: Calm
Impression / Plan
-
PCP: None locally
Middle School Sports Coach: Dr. MAXIMILIANO Mcdermott
Impression:
Presented with chest tightness, palpitations
Recurrent typical atrial flutter, w/ RVR
s/p successful YANG/CV 10/22/2024
spontaneous conversion to SR 01/17/2025
s/p successful CV in the ER 02/12/2025
Chronic Eliquis OAC
Tachycardia mediated CM, EF 31% by TTE 01/16/2025
Moderate CAD by cath 01/17/2025
Rheumatoid arthritis
COPD/asthma
Suboptimal social situation, extradited from [place] to [place]
Peripheral neuropathy
Hypercoagulable state
Recent ER visit w/ recurrent atrial flutter s/p CV in ER 02/12/2025
Recent admission with recurrent atrial flutter and acute HF 01/15/25 until 01/19/2025
Recent admission for newly diagnosed CM, CHF and atrial flutter 10/19/24 until 10/23/24
YANG 10/22/2024: EF 15-20%, reduced RV systolic function, no NICK thrombus, no significant valve disease
Echo 01/16/2025: EF 31%, normal RV size with reduced RV systolic function, mild MR
Plan:
-Presented with palpitations and chest tightness, found to be in rapid atrial flutter.
-Known history of recurrent atrial flutter, most recently underwent CV in ER 02/12/2025.
-Heart rates improved, but remain somewhat elevated on Cardizem gtt @ 5. Rate control has been limited by hypotension
-He has been NPO since midnight. Will plan for CV this AM in an attempt to restore SR
-Continues on amiodarone 200 mg twice daily since 02/12, will increase to 200 mg 3 times daily for the next 5 days in hopes he will be able to maintain SR.
-QTc stable on EKG this AM at 468 ms.
-Continue Eliquis 5 mg twice daily for anticoagulation.
-Known cardiomyopathy with EF 31% by recent echo 02/08. Continues on medical therapy with lisinopril and Farxiga.
-He is arranged for follow-up echocardiogram as OP to reassess. No need to repeat this admission.
-Nonobstructive CAD noted by cath 01/17/2025. Troponin negative x 1, repeat pending.
-ProBNP lowest it has been at 175. No evidence of volume overload. Not on diuretic.
-LDL 61, continue lipitor 40mg daily.
HPI: Everton is a 59 year old male with PMH of typical atrial flutter s/p CV 10/22/2024 and most recently 02/12/2025, chronic Eliquis OAC, tachycardia mediated CM, moderate CAD, rheumatoid arthritis, COPD, peripheral neuropathy, and hypercoagulable
state. Presented to [facility] ER from [facility] for evaluation of chest pressure and palpitations. Symptoms started approximately 3 to 4 days prior to arrival. EKG done at [facility] showed rapid atrial flutter and he was brought to ER for evaluation. In ER, EKG
confirmed he was in rapid atrial flutter. He was started on Cardizem drip and heart rates remained elevated, so he was given multiple boluses of IV Lopressor and heart rates improved. He then became hypotensive and required midodrine. Remains in
atrial flutter this AM with improved, but still elevated heart rates on Cardizem drip running @ 5. He remains symptomatic with chest tightness and palpitations, but does have some improvement with improvement in his heart rates. He also continues
on amiodarone 200 mg twice daily. He was restarted on amiodarone during office visit 01/29/2025, but then during ER visit 02/12/2025, dose was increased to twice daily following cardioversion in ER. He has been on uninterrupted anticoagulation with
Eliquis. Otherwise, appears well from a cardiac standpoint.
Data Reviewed
-
EKG: Tracing Personally Visualized and interpreted
Radiology: Report Reviewed by me
Labs: Labs Reviewed by me
Old Records: Reviewed
--- NOTE | 2025-03-01 07:42 | PTCARENOTE ---
On walking rounds pt is AAOx3, whitney sitting with pt states PA just saw pt and deciding what they are going to do. Pt states he has chest pressure all thetime and he did tell the PA that was just in the roomm. Pt is NPO HR in the 90s afib. on ra
[2025-03-01] MEDS: FARXIGA 10 MG PO (08:38)
[2025-03-01] MEDS: PACERONE 200 MG PO (08:38)
[2025-03-01] MEDS: PROTONIX 40 MG PO ×2 (08:38→19:42)
[2025-03-01] MEDS: THERAGRAN 1 TABLET PO (08:39)
[2025-03-01] MEDS: TYLENOL 1000 MG PO ×2 (08:39→19:42)
[2025-03-01] MEDS: ELIQUIS 5 MG PO ×2 (08:39→19:42)
--- NOTE | 2025-03-01 09:31 | CM ---
59-year-old male with past medical history of nonischemic cardiomyopathy with a EF of 30% by echocardiogram, nonobstructive CAD, typical atrial flutter status post cardioversion, on chronic anticoagulation. He came with A-Fib of which he has
history and chest pain. Patient from [facility]. Will return there upon discharge. Infimary # For report [phone] and fax# [phone].
Plan: Case management will continue to follow and assist with discharge planning. Back to half-way when stable.
--- NOTE | 2025-03-01 09:34 | PTCARENOTE ---
Cardizem infusion was off when this nurse took report
--- NOTE | 2025-03-01 10:34 | PTCARENOTE ---
Addendum entered by Catrina Jauregui RN 03/01/25 11:09:
Patient awake, alert and oriented at this time. Guards remain at bedside. BP a little low so continuing the 500NSS bag. Patient starting to eat his breakfast at 1122. Report given to River LOCKE. VSS at 1124.
Original Note:
Patient seen by Dr. Navarrete and prepared for cardioversion. DANTE lucio arrived at 1045. Dr. Alvarez arrived at 1047. Consent signed at 1053. Time out 1054. Shock 200J at 1056. NSR 60. 1 shock total and EKG obtained. Guards at bedside.
[2025-03-01] MEDS: ZESTRIL PO (10:41)
--- NOTE | 2025-03-01 11:00 | ITS.CL.CARDI ---
Health Information Systems Technician - Cardioversion
Cardioversion
Procedure Report:
Date of Procedure: 03/01/25.
Procedure: Cardioversion.
Indication: Symptomatic atrial fibrillation.
Performing Physician: Lyric Alvarez MD
Technique:Procedure was performed at patient bedside in IMU. Signed informed consent was obtained. A time out was called and performed. The patient was sedated by a member of the anesthesia service. Anticoagulation status was reviewed and was
appropriate. R-2 pads were placed anteriorly and posteriorly. A 200 J synchronized biphasic shock restored normal sinus rhythm without significant bradycardia. There were no complications.
Conclusion: Uncomplicated cardioversion from atrial fibrillation to sinus rhythm.
Recommendation: Routine post cardioversion care. Continue fence post cutter anticoagulation.
cc: MAXIMILIANO Mcdermott
--- NOTE | 2025-03-01 11:17 | PTCARENOTE ---
Ptcardioverted bedside without incident. Now in sr
--- NOTE | 2025-03-01 11:22 | PTCARENOTE ---
Pt with soft BP, laborer livestock RN here giving fluids, pt had propofol
--- NOTE | 2025-03-01 11:34 | W.PN.HOSP.TC ---
Today's Communication/Plan
-
Continue with amiodarone loading dose
Continue with Eliquis
Monitor heart rate
Cardiology recs
Assessment / Plan
Assessment / Plan
General: Well Developed, Well Nourished and No Apparent Distress
HEENT: NormoCephalic, Moist mucous membranes and Atraumatic
Respiratory: Clear
Cardiac: S1/S2, irregularly irregular and Peripheral Edema; No Murmur or Rub
GI: Soft, Non Tender, Non Distended and Normal Bowel Sounds; No Organomegaly
Rectal: Deferred by Provider
Musculoskeletal: No Clubbing, No Cyanosis and No Edema
Skin: No Rash
Neuro: Nonfocal/grossly intact
IMPRESSION:
59 y.o with NICM EF 15 - 20%, typical atrial flutter s/p CV in the past, on AC with eliqis and rhythm with control with amio presenting to ED with uncontrolled atrial flutter. Hemodynamically stable and no evidence of new ischemia or CHF
exacerbation. Started on diltiazem gtt in ED. Lungs are clear but reports a recent non-productive cough. No lower extremity edema. No JVD. History of AFIB-Flutter and currently in flutter. Unlikely to achieve significant rate changes with
diltiazem gtt. Given a one time dose of metoprolol. Patient continues to complaign of discomfort.
PLAN:
#Recurrent typical atrial flutter:
Status post cardioversion at bedside and patient converted to normal sinus rhythm
Plan is to increase amiodarone. Plan for amiodarone loading dose with 40 mg 3 times daily
Continue with anticoagulation with Eliquis
Patient remains at high risk of recurrent atrial fibrillation
#Chronic HFrEF
History of tachycardia mediated cardiomyopathy
Continue with lisinopril and Farxiga
Not on diuretics
Echo 02/08 with EF of 30%.
#BPH
Continue with Proscar and Flomax
Peripheral neuropathy
Continue with amitriptyline
Rheumatoid arthritis
Continue with Tylenol as needed
Hyperlipidemia
Continue with statin
GERD
Continue with PPI
DVT PPX - on eliquis
Code status - Full code
Anticipated Discharge: > 48 hours
Subjective/Interval History
-
Date of Service: March 01, 2025
States of mild lightheadedness
Remains in atrial fibrillation with mild ventricular response
Objective Data
-
Labs:
Laboratory Results
03/01/25
05:06
WBC 7.7
Hgb 13.5
Hct 38.8 L
Plt Count 168
Sodium 135
Potassium 4.4
Chloride 106
Carbon Dioxide 24
BUN 29 H
Creatinine 1.2
Glucose 93
Calcium 8.5
Vital Signs:
Vital Signs
Temp Pulse Resp BP Pulse Ox
97.7 F 113 17 112/72 96
03/01/25 11:23 03/01/25 09:30 03/01/25 09:30 03/01/25 09:00 03/01/25 08:00
I&O
02/28/25 03/01/25 03/02/25
06:59 06:59 06:59
Intake Total 1480 / 1480
Output Total 500 / 500 200 / 200
Balance 980 / 980 -200 / -200
--- NOTE | 2025-03-01 13:41 | PTCARENOTE ---
Pt has been released from custody . Now getting Echo
--- NOTE | 2025-03-01 14:08 | PTCARENOTE ---
Report to IVU
--- NOTE | 2025-03-01 14:57 | PTCARENOTE ---
Patient admitted to IVU from IMU. Oriented to room and call burnette. NSR, denies lightheadedness or chest pain. BP 123/81, NSR HR 74.
[2025-03-01] MEDS: PACERONE 400 MG PO ×2 (15:24→22:29)
[2025-03-01 18:40] LABS: Troponin I < 0.012 ng/ml
[2025-03-01] MEDS: ELAVIL 100 MG PO (22:29)
[2025-03-01] MEDS: PROSCAR 5 MG PO (22:29)
[2025-03-01] MEDS: FLOMAX 0.8 MG PO (22:29)
[2025-03-01] MEDS: LIPITOR 40 MG PO (22:29)
[2025-03-02] VITALS (8 sets, daily range): BP systolic 97–134; BP diastolic 48–88; BMI 27.0
--- NOTE | 2025-03-02 01:34 | PTCARENOTE ---
Patient ambulating self in room w/out difficulty. Denies any pain or SOB. Tele remains NSR, HR in the 60-70's at rest. Patient aware of POC, and can make needs known.
[2025-03-02 04:54] LABS: Blood Urea Nitrogen 27 mg/dl (9-20); Calcium 8.9 mg/dl (8.4-10.2); Carbon Dioxide 28 mmol/L (22-30); Chloride 105 mmol/L (98-107); Estimated Creatinine Clearance 61 ml/min; Glucose 96 mg/dl (70-99); Potassium 4.4 mmol/L (3.5-5.1); Sodium 138 mmol/L (135-145); eGFR > 60.00
--- NOTE | 2025-03-02 07:06 | W.PN.CARDCBS ---
Addendum entered and electronically signed by Servando Zimmerman MD 03/02/25 09:57:
I saw and examined the patient.
The BELT MAKER or PA's note was reviewed and I agree with the note.
Comment: General: Well developed, well nourished in NAD.
Neck: Supple, no JVD, HJR, carotids +2 B/L, no bruits bilaterally.
Heart: Non displaced PMI, RRR, no murmurs, No S3, S4, no rubs.
Lungs: Scattered rhonchi
Extremities: No clubbing, cyanosis or edema bilaterally.
Neuro: Grossly nonfocal, awake, alert and oriented x3.
Remains in sinus rhythm status post cardioversion on 03/01/2025. Continue amiodarone loading 400 mg p.o. 3 times daily another 24 hours and will discharge on amiodarone 200 mg p.o. twice daily on 03/03/2025.
Original Note:
Today's Communication / Plan
-
maintaining NSR
cont Amio load 400 mg TID
keep inpt one more day to watch EKG/QTc on Amio load
Impression / Plan
-
PCP: None locally
Hardwood Floor Sander: Dr. MAXIMILIANO Mcdermott
Impression:
Presented with chest tightness, palpitations
Recurrent typical atrial flutter, w/ RVR
s/p successful YANG/CV 10/22/2024
spontaneous conversion to SR 01/17/2025
s/p successful CV in the ER 02/12/2025 and started Amio 200 mg bid
presented with rapid aflutter 02/28/25
s/p CV 03/01/2025 and Amio increased to 400 mg tid
Chronic Eliquis OAC
Tachycardia mediated CM, EF 31% by TTE 01/16/2025
Moderate CAD by cath 01/17/2025
Rheumatoid arthritis
COPD/asthma
Suboptimal social situation, extradited from [place] to [place]
Peripheral neuropathy
Hypercoagulable state
Recent ER visit w/ recurrent atrial flutter s/p CV in ER 02/12/2025
Recent admission with recurrent atrial flutter and acute HF 01/15/25 until 01/19/2025
Recent admission for newly diagnosed CM, CHF and atrial flutter 10/19/24 until 10/23/24
YANG 10/22/2024: EF 15-20%, reduced RV systolic function, no NICK thrombus, no significant valve disease
Echo 01/16/2025: EF 31%, normal RV size with reduced RV systolic function, mild MR
Plan:
-Presented with palpitations and chest tightness, found to be in rapid atrial flutter.
-Known history of recurrent atrial flutter, most recently underwent CV in ER 02/12/2025 and started Amio 200 mg bid
-s/p successful CV 03/01 and increase in Amio to 400 mg tid-has rec'd 2 doses
-cont Amio 400 mg tid, watch as inpt one more day
-EKG today 03/02: sb, QTc stable 463 ms
-Continue Eliquis 5 mg twice daily for anticoagulation.
-Known cardiomyopathy with EF 31% by recent echo 02/08. Continues on medical therapy with lisinopril and Farxiga.
-He is arranged for follow-up echocardiogram as OP to reassess. No need to repeat this admission.
-Nonobstructive CAD noted by cath 01/17/2025. Troponin negative x 1, repeat pending.
-ProBNP lowest it has been at 175. No evidence of volume overload. Not on diuretic.
-LDL 61, continue lipitor 40mg daily.
-outpt f/u arranged at [facility] 03/26/2025 4pm
HPI: Everton is a 59 year old male with PMH of typical atrial flutter s/p CV 10/22/2024 and most recently 02/12/2025, chronic Eliquis OAC, tachycardia mediated CM, moderate CAD, rheumatoid arthritis, COPD, peripheral neuropathy, and hypercoagulable
state. Presented to [facility] ER from [facility] for evaluation of chest pressure and palpitations. Symptoms started approximately 3 to 4 days prior to arrival. EKG done at [facility] showed rapid atrial flutter and he was brought to ER for evaluation. In ER, EKG
confirmed he was in rapid atrial flutter. He was started on Cardizem drip and heart rates remained elevated, so he was given multiple boluses of IV Lopressor and heart rates improved. He then became hypotensive and required midodrine. Remains in
atrial flutter this AM with improved, but still elevated heart rates on Cardizem drip running @ 5. He remains symptomatic with chest tightness and palpitations, but does have some improvement with improvement in his heart rates. He also continues
on amiodarone 200 mg twice daily. He was restarted on amiodarone during office visit 01/29/2025, but then during ER visit 02/12/2025, dose was increased to twice daily following cardioversion in ER. He has been on uninterrupted anticoagulation with
Eliquis. Otherwise, appears well from a cardiac standpoint.
Progress Note - Hardwood Floor Sander
Subjective
Date of Service: March 02, 2025
maintaining SR
denies palps, LH, SOB, CP
Objective
Labs:
03/01/25 05:06
03/02/25 04:23
Labs
Hgb 13.5 g/dL (13.0-18.0) 03/01/25 05:06
Hct 38.8 % (39.0-52.0) L 03/01/25 05:06
Plt Count 168 10^3/uL (130-400) 03/01/25 05:06
PT 15.5 Sec (11.4-14.6) H 02/28/25 18:03
INR 1.18 02/28/25 18:03
APTT 29.2 Sec (23.4-35.0) 02/28/25 18:03
Sodium 138 mmol/L (135-145) 03/02/25 04:23
Potassium 4.4 mmol/L (3.5-5.1) 03/02/25 04:23
BUN 27 mg/dl (9-20) H 03/02/25 04:23
Creatinine 1.3 mg/dL (0.7-1.3) 03/02/25 04:23
Glucose 96 mg/dl (70-99) 03/02/25 04:23
Troponins
02/28/25 02/28/25 03/01/25
17:44 20:05 18:04
Troponin I Cancelled < 0.012 < 0.012
Vital Signs and I&O:
Vital Signs
Temp Pulse Resp BP Pulse Ox
97.7 F 58 18 134/88 96
03/02/25 07:02 03/02/25 04:19 03/02/25 07:02 03/02/25 04:19 03/02/25 07:02
Vital Signs
Temp Pulse Resp BP Pulse Ox
97.7 F 58 18 134/88 96
03/02/25 07:02 03/02/25 04:19 03/02/25 07:02 03/02/25 04:19 03/02/25 07:02
Intake & Output
02/28/25 03/01/25 03/02/25 03/03/25
06:59 06:59 06:59 06:59
Intake Total 1480 / 1480 490 / 490
Output Total 500 / 500 575 / 575
Balance 980 / 980 -85 / -85
Physical Exam
Physical Exam
GEN: No distress, awake, Ox3
HEENT: supple, anicteric, mmm
LUNGS: CTA, no wheezes/rales
CV: Reg, S1/S2, no murmur
ABD: soft, BS+, NT/ND
EXT: No edema
NEURO: Gross non-focal
SKIN: No rash
[2025-03-02] MEDS: PACERONE 400 MG PO ×3 (08:01→22:29)
[2025-03-02] MEDS: ELIQUIS 5 MG PO ×2 (08:01→19:18)
[2025-03-02] MEDS: FARXIGA 10 MG PO (08:01)
[2025-03-02] MEDS: TYLENOL 1000 MG PO ×2 (08:02→19:18)
[2025-03-02] MEDS: THERAGRAN 1 TABLET PO (08:02)
[2025-03-02] MEDS: ZESTRIL 2.5 MG PO (08:02)
[2025-03-02] MEDS: PROTONIX 40 MG PO ×2 (08:02→19:18)
--- NOTE | 2025-03-02 11:26 | PTCARENOTE ---
Assumed care at 0700. Patient comfortable at rest, NSR HR in the 70's. Denies pain or shortness of breath, call burnette in reach
--- NOTE | 2025-03-02 11:51 | W.PN.HOSP.TC ---
Today's Communication/Plan
-
Continue with loading dose of amiodarone
Continue monitor on telemetry
Continue with Eliquis
Assessment / Plan
Assessment / Plan
General: Well Developed, Well Nourished and No Apparent Distress
HEENT: NormoCephalic, Moist mucous membranes and Atraumatic
Respiratory: Clear
Cardiac: S1/S2, regular rhythm
GI: Soft, Non Tender, Non Distended and Normal Bowel Sounds; No Organomegaly
Rectal: Deferred by Provider
Musculoskeletal: No Clubbing, No Cyanosis and No Edema
Skin: No Rash
Neuro: Nonfocal/grossly intact
IMPRESSION:
59 y.o with NICM EF 15 - 20%, typical atrial flutter s/p CV in the past, on AC with eliqis and rhythm with control with amio presenting to ED with uncontrolled atrial flutter. Hemodynamically stable and no evidence of new ischemia or CHF
exacerbation. Started on diltiazem gtt in ED. Lungs are clear but reports a recent non-productive cough. No lower extremity edema. No JVD. History of AFIB-Flutter and currently in flutter. Unlikely to achieve significant rate changes with
diltiazem gtt. Given a one time dose of metoprolol. Patient continues to complaign of discomfort.
PLAN:
#Recurrent typical atrial flutter:
Status post cardioversion at bedside and patient converted to normal sinus rhythm
Plan is to increase amiodarone. Plan for amiodarone loading dose with 400 mg 3 times daily. QTc 463.
Continue with anticoagulation with Eliquis
Patient remains at high risk of recurrent atrial fibrillation
Cardiology following
#Chronic HFrecEF
History of tachycardia mediated cardiomyopathy
Continue with lisinopril and Farxiga
Not on diuretics
Repeat echo on 03/01 with improvement in ejection fraction to 50 to 55% from 30% previously
#BPH
Continue with Proscar and Flomax
Peripheral neuropathy
Continue with amitriptyline
Rheumatoid arthritis
Continue with Tylenol as needed
Hyperlipidemia
Continue with statin
GERD
Continue with PPI
DVT PPX - on eliquis
Code status - Full code
Discussed with cardiology. Plan to monitor overnight.
Anticipated Discharge: Within 24 hours
Subjective/Interval History
-
Date of Service: March 02, 2025
Remains in normal sinus rhythm
Objective Data
-
Labs:
Laboratory Results
03/02/25
04:23
Sodium 138
Potassium 4.4
Chloride 105
Carbon Dioxide 28
BUN 27 H
Creatinine 1.3
Glucose 96
Calcium 8.9
Vital Signs:
Vital Signs
Temp Pulse Resp BP Pulse Ox
97.7 F 71 18 106/68 96
03/02/25 07:02 03/02/25 09:00 03/02/25 07:02 03/02/25 06:59 03/02/25 07:02
I&O
03/01/25 03/02/25 03/03/25
06:59 06:59 06:59
Intake Total 1480 / 1480 490 / 490
Output Total 500 / 500 575 / 575
Balance 980 / 980 -85 / -85
[2025-03-02] MEDS: PROSCAR 5 MG PO (22:29)
[2025-03-02] MEDS: LIPITOR 40 MG PO (22:29)
[2025-03-02] MEDS: FLOMAX 0.8 MG PO (22:29)
[2025-03-02] MEDS: ELAVIL 100 MG PO (22:29)
--- NOTE | 2025-03-02 22:58 | PTCARENOTE ---
tele monitor shows SB/NSR w/ occasional PACs. HR in the 50-60's at rest. VSS. Pt denies any pain or SOB at this time.
Call burnette within reach.
[2025-03-03 03:51] VITALS: BP 110/69
[2025-03-03 04:53] LABS: Blood Urea Nitrogen 22 mg/dl (9-20); Calcium 8.9 mg/dl (8.4-10.2); Carbon Dioxide 25 mmol/L (22-30); Chloride 104 mmol/L (98-107); Estimated Creatinine Clearance 67 ml/min; Glucose 96 mg/dl (70-99); Potassium 4.1 mmol/L (3.5-5.1); Sodium 136 mmol/L (135-145); eGFR > 60.00
[2025-03-03 06:53] VITALS: BP 98/60
--- NOTE | 2025-03-03 08:25 | W.PN.CARDCBS ---
Today's Communication / Plan
-
Stable cardiology status for discharge on amiodarone 200 mg p.o. twice daily
Impression / Plan
-
PCP: None locally
Maintenance And Utilities Supervisor: Dr. MAXIMILIANO Mcdermott
Impression:
Presented with chest tightness, palpitations
Recurrent typical atrial flutter, w/ RVR
s/p successful YANG/CV 10/22/2024
spontaneous conversion to SR 01/17/2025
s/p successful CV in the ER 02/12/2025 and started Amio 200 mg bid
presented with rapid aflutter 02/28/25
s/p CV 03/01/2025 and Amio increased to 400 mg tid
Chronic Eliquis OAC
Tachycardia mediated CM, EF 31% by TTE 01/16/2025
Moderate CAD by cath 01/17/2025
Rheumatoid arthritis
COPD/asthma
Suboptimal social situation, extradited from [place] to [place]
Peripheral neuropathy
Hypercoagulable state
Recent ER visit w/ recurrent atrial flutter s/p CV in ER 02/12/2025
Recent admission with recurrent atrial flutter and acute HF 01/15/25 until 01/19/2025
Recent admission for newly diagnosed CM, CHF and atrial flutter 10/19/24 until 10/23/24
YANG 10/22/2024: EF 15-20%, reduced RV systolic function, no NICK thrombus, no significant valve disease
Echo 01/16/2025: EF 31%, normal RV size with reduced RV systolic function, mild MR
Plan:
Stable cardiology status for discharge
Has remained in sinus rhythm status post cardioversion on 03/01 and is status post amiodarone loading at 400 mg p.o. 3 times daily
Discharge on amiodarone 200 mg p.o. twice daily
He is returning to [place] and he is advised to get a beef pusher there.
outpt f/u arranged at [facility] 03/26/2025 4pm but may need to be canceled if he leaves for [place]
HPI: Everton is a 59 year old male with PMH of typical atrial flutter s/p CV 10/22/2024 and most recently 02/12/2025, chronic Eliquis OAC, tachycardia mediated CM, moderate CAD, rheumatoid arthritis, COPD, peripheral neuropathy, and hypercoagulable
state. Presented to [facility] ER from [facility] for evaluation of chest pressure and palpitations. Symptoms started approximately 3 to 4 days prior to arrival. EKG done at [facility] showed rapid atrial flutter and he was brought to ER for evaluation. In ER, EKG
confirmed he was in rapid atrial flutter. He was started on Cardizem drip and heart rates remained elevated, so he was given multiple boluses of IV Lopressor and heart rates improved. He then became hypotensive and required midodrine. Remains in
atrial flutter this AM with improved, but still elevated heart rates on Cardizem drip running @ 5. He remains symptomatic with chest tightness and palpitations, but does have some improvement with improvement in his heart rates. He also continues
on amiodarone 200 mg twice daily. He was restarted on amiodarone during office visit 01/29/2025, but then during ER visit 02/12/2025, dose was increased to twice daily following cardioversion in ER. He has been on uninterrupted anticoagulation with
Eliquis. Otherwise, appears well from a cardiac standpoint.
Progress Note - Maintenance And Utilities Supervisor
Subjective
Date of Service: March 03, 2025
No complaints
Objective
Labs:
03/01/25 05:06
03/03/25 03:57
Labs
Hgb 13.5 g/dL (13.0-18.0) 03/01/25 05:06
Hct 38.8 % (39.0-52.0) L 03/01/25 05:06
Plt Count 168 10^3/uL (130-400) 03/01/25 05:06
PT 15.5 Sec (11.4-14.6) H 02/28/25 18:03
INR 1.18 02/28/25 18:03
APTT 29.2 Sec (23.4-35.0) 02/28/25 18:03
Sodium 136 mmol/L (135-145) 03/03/25 03:57
Potassium 4.1 mmol/L (3.5-5.1) 03/03/25 03:57
BUN 22 mg/dl (9-20) H 03/03/25 03:57
Creatinine 1.2 mg/dL (0.7-1.3) 03/03/25 03:57
Glucose 96 mg/dl (70-99) 03/03/25 03:57
Troponins
02/28/25 02/28/25 03/01/25
17:44 20:05 18:04
Troponin I Cancelled < 0.012 < 0.012
Vital Signs and I&O:
Vital Signs
Temp Pulse Resp BP Pulse Ox
98.5 F 55 20 110/69 95
03/03/25 06:53 03/03/25 05:00 03/03/25 06:53 03/03/25 03:51 03/03/25 06:53
Vital Signs
Temp Pulse Resp BP Pulse Ox
98.5 F 55 20 110/69 95
03/03/25 06:53 03/03/25 05:00 03/03/25 06:53 03/03/25 03:51 03/03/25 06:53
Intake & Output
03/01/25 03/02/25 03/03/25 03/04/25
06:59 06:59 06:59 06:59
Intake Total 1480 / 1480 490 / 490 1440 / 1440
Output Total 500 / 500 575 / 575 500 / 500
Balance 980 / 980 -85 / -85 940 / 940
Physical Exam
Physical Exam
General: Well developed, well nourished in NAD.
Neck: Supple, no JVD, HJR, carotids +2 B/L, no bruits bilaterally.
Heart: Non displaced PMI, RRR, no murmurs, No S3, S4, no rubs.
Lungs: Scattered rhonchi
Extremities: No clubbing, cyanosis or edema bilaterally.
Neuro: Grossly nonfocal, awake, alert and oriented x3.
[2025-03-03] MEDS: THERAGRAN 1 TABLET PO (08:32)
[2025-03-03] MEDS: PROTONIX 40 MG PO (08:32)
[2025-03-03] MEDS: TYLENOL 1000 MG PO (08:32)
[2025-03-03] MEDS: FARXIGA 10 MG PO (08:32)
[2025-03-03] MEDS: ELIQUIS 5 MG PO (08:32)
[2025-03-03] MEDS: ZESTRIL PO (08:33)
[2025-03-03] MEDS: PACERONE 400 MG PO (08:33)
--- NOTE | 2025-03-03 10:09 | W.PN.HOSP.TC ---
Today's Communication/Plan
-
reduce dose of amio
cont eliquis
op cards f/u
Assessment / Plan
Assessment / Plan
General: Well Developed, Well Nourished and No Apparent Distress
HEENT: NormoCephalic, Moist mucous membranes and Atraumatic
Respiratory: Clear
Cardiac: S1/S2, regular rhythm
GI: Soft, Non Tender, Non Distended and Normal Bowel Sounds; No Organomegaly
Rectal: Deferred by Provider
Musculoskeletal: No Clubbing, No Cyanosis and No Edema
Skin: No Rash
Neuro: Nonfocal/grossly intact
IMPRESSION:
59 y.o with NICM EF 15 - 20%, typical atrial flutter s/p CV in the past, on AC with eliqis and rhythm with control with amio presenting to ED with uncontrolled atrial flutter. Hemodynamically stable and no evidence of new ischemia or CHF
exacerbation. Started on diltiazem gtt in ED. Lungs are clear but reports a recent non-productive cough. No lower extremity edema. No JVD. History of AFIB-Flutter and currently in flutter. Unlikely to achieve significant rate changes with
diltiazem gtt. Given a one time dose of metoprolol. Patient continues to complaign of discomfort.
PLAN:
#Recurrent typical atrial flutter:
Status post cardioversion at bedside and patient converted to normal sinus rhythm
Status post amiodarone loading dose. Decreasing amiodarone to 200 mg twice daily
Continue with anticoagulation with Eliquis
Cardiology following
#Chronic HFrecEF
History of tachycardia mediated cardiomyopathy
Continue with lisinopril and Farxiga
Not on diuretics
Repeat echo on 03/01 with improvement in ejection fraction to 50 to 55% from 30% previously
#BPH
Continue with Proscar and Flomax
Peripheral neuropathy
Continue with amitriptyline
Rheumatoid arthritis
Continue with Tylenol as needed
Hyperlipidemia
Continue with statin
GERD
Continue with PPI
DVT PPX - on eliquis
Code status - Full code
More than 30 minutes spent in discharge including
Final examination of the patient
Summarizing hospital stay
Instructions for continuing care to all relevant caregivers
Preparation of discharge records, prescriptions, and referral forms
Total time spent (in minutes): 52
Anticipated Discharge: Today
Subjective/Interval History
-
Date of Service: March 03, 2025
denies any chest pain or palpations or sob.
remains in NSR
Objective Data
-
Labs:
Laboratory Results
03/03/25
03:57
Sodium 136
Potassium 4.1
Chloride 104
Carbon Dioxide 25
BUN 22 H
Creatinine 1.2
Glucose 96
Calcium 8.9
Vital Signs:
Vital Signs
Temp Pulse Resp BP Pulse Ox
98.5 F 62 20 98/60 95
03/03/25 06:53 03/03/25 09:00 03/03/25 06:53 03/03/25 08:33 03/03/25 06:53
I&O
03/02/25 03/03/25 03/04/25
06:59 06:59 06:59
Intake Total 490 / 490 1440 / 1440
Output Total 575 / 575 500 / 500
Balance -85 / -85 940 / 940
[2025-03-03 11:28] VITALS: BP 121/74
--- NOTE | 2025-03-03 12:52 | CM ---
Addendum entered by Jelly Duran 03/03/25 13:25:
correction, total for pacerone and tamsuilosin is $41.02, approved by [employer].
Original Note:
contacted by RNReynaldo. pt was released from the [facility] and is being dc'ed. pt is going back to [place] where he lives. i called his [facility] in [address] - [phone], they confirmed his medicaid perscrip plan only covers
meds filled in [place]. pt sent home with paper scripts to take to his pharmacy. hospitalist said his flomax, amniodarone and eliquis needed to be filled today. the rest he could get tomorrow when he gets to [place]. called [employer] and spoke to Lola Diamond
who approved 30 days of amiod and flomax to be filled here for total $28.54. pt given a free 30 day coupon for eliquis to fill [place] [facility] [place]. pt understands that he will need to contact his primary care provider and go fill
his remaining meds when he returns home tomorrow. pt said he will take the train home.
--- NOTE | 2025-03-03 13:13 | W.DCSUMMARY ---
Discharge Summary
Discharge Data
Date of Admission: 02/28/25
Date of Discharge: 03/03/25
-
Pending Results: No
Hospital Course
59 y.o with NICM EF 15 - 20%, typical atrial flutter s/p CV in the past, on AC with Eliquis and rhythm with control with amio presenting to ED with uncontrolled atrial flutter. Started on diltiazem gtt in ED. patient with hypotensive and Cardizem
infusion. Patient received IV fluid bolus. Cardiology evaluated the patient. Patient was weaned off Cardizem drip. Blood pressure stabilized. Patient underwent DCCV cardioversion at bedside. Patient converted to normal sinus rhythm. Patient
was started on amiodarone loading dose during hospitalization. Patient remained in normal sinus rhythm. Patient underwent repeat echocardiogram which showed improvement in ejection fraction to 50 to 55%. Patient was continued on Eliquis.
Amiodarone was de-escalated to 200 mg twice daily on discharge. Patient without any palpitation, chest pain or shortness of breath. Patient be discharged home.
Discharge Plan
-
Patient Disposition: Home (Routine Discharge)
Discharge Diagnosis/Procedures: Atrial fibrillation with rapid ventricular response status post cardioversion
Condition: Fair
Diet: 2 Gram Sodium
Activity: As tolerated
Driving Restrictions: As prior to admission
Referrals:
Kisha Trinidad PA-C [Specified Professional Personl, Cardiology] - 03/26/25 4:00 pm
Referral Note: You have a follow up visit with Dr. Mcdermott's Kisha BRAMBILA, at the [place] office. Please call with questions.
Prescriptions:
Continued
acetaminophen 500 mg Tablet
1,000 mg PO BID
therapeutic multivitamin Tablet
1 tab PO DAILY
atorvastatin 40 mg Tablet
40 mg PO HS Qty: 30 0RF
amiodarone 200 mg tablet
200 mg PO BID Qty: 60 0RF
tamsulosin 0.4 mg Capsule
0.8 mg PO HS 30 Days Qty: 60 0RF
omeprazole 20 mg capsule,delayed release(DR/EC)
20 mg PO BID Qty: 30 0RF
amitriptyline 100 mg Tablet
100 mg PO HS Qty: 30 0RF
lisinopril 2.5 mg tablet
2.5 mg PO DAILY 30 Days Qty: 30 0RF
finasteride 5 mg Tablet
5 mg PO HS Qty: 30 0RF
Eliquis 5 mg Tablet
5 mg PO BID Qty: 60 0RF
dapagliflozin propanediol 10 mg Tablet
10 mg PO DAILY Qty: 30 0RF
Discharge Orders:
Discharge Patient (As Directed); Ordered 03/03/25
Ordered By: Rashid Gusman
Care Plan Goals
Care Plan Goals:
Problem: Readiness for enhanced knowledge related to diagnosis and treatment plan
Goal: Understand your diagnosis and treatment plan needs, including medications if applicable.
Instructions: Know your diagnosis, underlying causes and treatment plan options, including medications if applicable. Consult with your health care team to learn about your diagnosis and treatment plan, including medications if applicable.
Discharge Date and Time
Discharge Date/Time: 03/03/25 14:22
Print Language: TAMAZIGHT
--- NOTE | 2025-03-03 14:22 | PTCARENOTE ---
~[id number]: Handoff report received from nightshift RN. Pt AOx4, SB/NSR on tele 50-60s, SBP 98/60 this AM, lisinopril held per order. RA satting 95%. Pt denies pain at this time. Independent in room. All needs met at this time, call burnette within
reach.
~[id number]: Health Insurance and home address updated in EMR since being released from [facility] prior to admission. CM called for pricing of amio and flomax from [facility] to hopefully get them approved. Coupon for Eliquis given to patient to get filled at
[facility] prior to departure from [place]. Pt pharmacy in [place] does not accept electronic scripts from [place] so hard copy scripts for all medications to be given to patient to be filled once back home. Directions printed for patient on how to get to [place]
[facility] after d/c from hospital.
~[id number]: Received approval from pharmacy for 30 days of Amiodarone and Flomax which was given to patient when reviewing d/c paperwork. Patient also left with coupon for 30 days Eliquis for patient to fill at [facility] across from [facility] prior to departure; He left with paper copies of scripts for all medications. it was thoroughly explained to patient that the scripts are good for 30 days with no refills and that the patient needs to see his primary doc, Dr. Romo with [facility] who is part of [facility] as soon as possible in order to receive refills of medications. This RN also printed out the last note from the Hospitalist and [employer] which was given to the patient to bring with him when
he sees his provider in [place] so the provider is up to date on the patient's history. D/C packet reviewed with patient in detail on when to take medications and what medications will be started once he is back in [place] and his paper scripts are filled.
Teachback utilized to demonstrate understanding of how patient is to acquire meds, when to take them and what they are for, patient was able to do teach back of this information with this RN. Lastly, a map and walking directions to both the
[place] train station and the [facility] pharmacy across the street from the train station provided to patient. All questions answered. tele box and PIV removed. Pt discharged in stable condition and wheeled down to lobby with all belongings and all d/c
paperwork in hand.
== END 2025-03-03 14:22 | DRG 309 ==
LOC: IVU 20:26
PROVIDERS: Emergency Medicine; Internal Medicine Cardiovascular Disease; Nurse Practitioner Family; ADMITTING PHYSICIAN Internal Medicine; ATTENDING PHYSICIAN Hospitalist; EMERGENCY PHYSICIAN Emergency Medicine; OTHER PHYSICIAN Internal Medicine Cardiovascular Disease
PROC: 5A2204Z Restoration of Cardiac Rhythm, Single (ICD-10-PCS; 2025-03-01)
DX: I48.3 Typical atrial flutter (principal); I50.22 Chronic systolic (congestive) heart failure; I48.91 Unspecified atrial fibrillation; Z79.01 Long term (current) use of anticoagulants; I25.10 Atherosclerotic heart disease of native coronary artery without angina pectoris; I42.0 Dilated cardiomyopathy; K21.9 Gastro-esophageal reflux disease without esophagitis; G62.9 Polyneuropathy, unspecified; J44.89 Other specified chronic obstructive pulmonary disease; Z87.891 Personal history of nicotine dependence; Z88.0 Allergy status to penicillin; Z79.899 Other long term (current) drug therapy; Z82.49 Family history of ischemic heart disease and other diseases of the circulatory system; N40.0 Benign prostatic hyperplasia without lower urinary tract symptoms; M06.9 Rheumatoid arthritis, unspecified; E78.00 Pure hypercholesterolemia, unspecified; I11.0 Hypertensive heart disease with heart failure
CPT/HCPCS: 71046; 80048; 80053; 80061; 83605; 83735; 83880; 84484; 85025; 85027; 85610; 85730; 87070; 87147; 92960; 93005; 93308; 96365; 96366; 96375; 99285